=== PATIENT | male | born 1930 | race Caucasian/White ===

== ENCOUNTER 2016-05-11 11:22 | Inpatient (IN) ==
[2016-05-11 12:12] LABS: Mean Corpuscular Volume 98.6 fL (83.0-100.0); Red Cell Distribution Width 14.8 % (11.5-14.5)
[2016-05-11 12:14] LABS: Basophils % 0.3 %; Eosinophils % 0.4 %; Hematocrit 28.5 % (37.5-50.1); Hemoglobin 9.2 g/dL (12.9-16.9); Immature Platelets 10.8 % (1.1-6.1); Lymphocytes # 0.2 K/mcL (0.6-4.6); Lymphocytes % 1.9 %; Mean Corpuscular HGB Conc 32.3 g/dL (31.6-35.5); Mean Corpuscular Hemoglobin 31.8 pg (28.0-33.3); Mean Platelet Volume 13.1 fL (9.4-12.4); Monocytes # 0.9 K/mcL (0.0-1.3); Monocytes % 8.3 %; Neutrophils # 9.1 K/mcL (1.6-8.9); Red Blood Count 2.89 M/mcL (4.19-5.50); Segmented Neutrophils % 88.1 %
[2016-05-11 12:19] LABS: INR 1.4; Prothrombin Time 14.7 Seconds (9.4-12.1)
[2016-05-11 12:27] LABS: Albumin/Globulin Ratio 0.9 (1.1-2.2); Bilirubin,Total 0.6 mg/dL (0.2-1.2); Calcium 9.1 mg/dL (8.6-10.8); Globulin 3.2 g/dL (2.4-3.5); Potassium 4.7 mEq/L (3.5-4.5); Total Protein 6.2 g/dL (6.0-8.3)
[2016-05-11 12:32] LABS: Platelet Count 97 K/mcL (140-400)
[2016-05-11 12:35] LABS: Anisocytosis 1+ (Not Present); Platelet Estimate Slight Decrease (Normal); Poikilocytosis 2+ (Not Present)
[2016-05-11 12:36] LABS: Acanthocytes 1+ (Not Present)
[2016-05-11] MEDS ORDERED: 0.9 % Sodium Chloride 500 ML IV ONE ×2 (13:11→16:30)
[2016-05-11] MEDS ORDERED: Levofloxacin 750 MG/150 ML 750 MG/150 ML BAG IVPB ONE (13:11)
[2016-05-11] MEDS ORDERED: *HR* Heparin 5,000 UNIT/ML VIAL IVP PRN ×2 (13:13)
[2016-05-11] MEDS ORDERED: *HR* Heparin 5,000 UNIT/ML VIAL IVP ONE (13:13)
[2016-05-11] MEDS ORDERED: Heparin 25,000 UNIT/500 ML D5W 25,000 UNIT/500 ML MLS IVC SCH ×2 (13:15→19:00)
--- NOTE | 2016-05-11 13:22 | Emergency Department Note ---
Disposition Clinical Impression: NSTEMI (non-ST elevated myocardial infarction) Pneumonia Qualifiers: Pneumonia type: due to unspecified organism Laterality: unspecified laterality Lung location: unspecified part of lung Qualified Code(s): J18.9 - Pneumonia, unspecified organism Heart failure Qualifiers: Heart failure type: unspecified heart failure type Heart failure chronicity: unspecified heart failure chronicity Qualified Code(s): I50.9 - Heart failure, unspecified Atrial fibrillation Qualifiers: Atrial fibrillation type: paroxysmal Qualified Code(s): I48.0 - Paroxysmal atrial fibrillation Disposition: Admitted As Inpatient Condition: Fair Syncope HPI - General Chief Complaint: ED Syncope Stated Complaint: decreased awareness Time Seen by Provider: 05/11/16 11:33 Source: EMS Limitations: no limitations Nursing Notes Reviewed: Yes Vital Signs Reviewed: Yes - History of Present Illness HPI Narrative: Patient brought in by EMS for evaluation of decreased responsiveness and syncope. Patient lives in assisted living facility when he was knocking on someone's door and they saw him slide down the door fall to the ground. Patient was unconscious for several minutes prior to EMS arrival. Patient did arouse and was responsive upon arrival in the ED. Awake alert and oriented 3 with GCS of 15. Patient does not know what happened to him prior to the event. He remembers eating breakfast in the dining [place] but not walking down the hallway. Patient states that he has had a cough for approximately 4 days associated with significant fatigue over the last 2 days. Patient states that he has an AICD placed for abnormal heart rhythm causing syncope. Patient has no previous history of coronary artery disease. Patient is very dry on initial exam her lungs with significant rails bibasilarly. Clinical cough is deep and concerning for pneumonia. - Related Data Home Medications Medication Instructions Recorded Confirmed Aspirin [Adult Low Dose Aspirin EC] 1 tab PO DAILY 02/25/15 05/11/16 Cholecalciferol (Vitamin D3) 2,000 unit PO DAILY 02/25/15 05/11/16 [Vitamin D] Docosahexanoic Acid/Epa [Fish Oil 1,000 mg PO DAILY 02/25/15 05/11/16 Concentrate Softgel] Finasteride [Proscar] 5 mg PO DAILY 02/25/15 05/11/16 Flaxseed/Omega3,6,9/Fatty Acid 1,000 mg PO DAILY 02/25/15 05/11/16 [Flax Seed Oil 1,300 mg Softgel] Garlic 25 mg PO BID 02/25/15 05/11/16 Ginkgo Biloba [place] Extract [Ginkgo 60 mg PO BID 02/25/15 05/11/16 Biloba] Multivitamin [Multivitamins] 1 each PO DAILY 02/25/15 05/11/16 Simvastatin [Zocor] 20 mg PO HS 02/25/15 05/11/16 Apixaban [Eliquis] 2.5 mg PO BID 01/15/16 05/11/16 Mupirocin [Mupirocin] 1 appl TP BID 05/11/16 05/11/16 Previous Rx's Medication Instructions Recorded Loratadine [Claritin] 10 mg PO BID #30 tablet 05/08/16 Allergies Allergy/AdvReac Type Severity Reaction Status Date / Time No Known Allergies Allergy Verified 01/15/16 11:53 Constitutional: Reports: chills, weakness Eyes: Denies: eye pain ENT ED: Denies: ear pain Cardiovascular: Reports: dyspnea on exertion, orthopnea, syncope. Denies: chest pain Respiratory: Reports: cough, dyspnea, sputum production (White and mendoza) Gastrointestinal: Denies: abdominal pain, nausea, vomiting Genitourinary: Denies: urgency, dysuria Musculoskeletal: Denies: back pain, neck pain Integumentary: Denies: rash, abrasion Neurological: Reports: weakness. Denies: headache Past Medical History - Past Medical History Medical history: Reports: non-contributory, hyperlipidemia, myocardial infarction, sudden cardiac Psychiatric history: Reports: no psych history - Social History Smoking Status: Never smoker Smokeless Tobacco Status: No Alcohol use: Reports: none Drug use: Reports: none Physical Exam - General Limitations: no limitations General appearance: alert, in no apparent distress - Head Head exam: atraumatic, normocephalic - Eye Eye exam: Present: normal appearance - ENT ENT exam: normal exam, mucous membranes dry (Moderate to severe) - Neck Neck exam: Present: normal inspection - Chest Chest inspection: Present: normal inspection, symmetric chest wall rise. Absent : tenderness - Respiratory Respiratory exam: Present: other (Rales associated with hypoxia.) - Cardiovascular Cardiovascular exam: Present: regular rate, normal rhythm - Abdominal Exam Abdominal exam: Present: soft, Non-Tender - Extremities Exam Extremities exam: Present: normal inspection. Absent: tenderness - Back Exam Back exam: Present: normal inspection. Absent: tenderness - Neurological Exam Neurological exam: Present: alert, oriented X3, CN II-XII intact. Absent: motor sensory deficit Course - Reevaluation(s) Reevaluation #1: Patient with chest x-ray concerning for pulmonary edema as well as possible pneumonia. Due to mucous membrane brains being dry and significant cough. Patient given a dose of IV antibiotics. Patient also has elevated BNP and an elevated troponin. Patient denies past myocardial infarction. Patient started on Levaquin and heparin drip. Aspirin given. Patient currently denying chest pain. Patient will be admitted to the hospital. Reevaluation #2: Patient converted to A. fib after hospitalist and cardiology saw the patient. EKG was done showing significant T-wave inversions and depressions throughout all leads. EKG was watched cardiology and discussed with Dr Crockett, concerning EKG but complicated by renal function and pressures as well as no chest pain, only fatigue. Dr. Land interventional cardiology will be paged. - Consultations Consultation #1: Discussed with hospitalist. Request consultation with cardiology. Consultation #2: Discussed with Dr. Crockett. Discontinue Eliquis and start Heparin with pharmacy to help determine timing of Heparin Drip. Call back with heparin to be started timing of next dose of THIS. Next dose due at 7 PM as his nightly dose. Vital Signs Temperature 97.7 F 05/11/16 11:28 Pulse Rate 86 05/11/16 11:28 Respiratory Rate 18 05/11/16 11:28 Blood Pressure 103/55 05/11/16 11:28 O2 Sat by Pulse Oximetry 90 L 05/11/16 11:28 Temperature 97.7 F 05/11/16 11:28 Pulse Rate 71 05/11/16 15:54 Respiratory Rate 26 05/11/16 15:54 Blood Pressure 87/43 05/11/16 15:54 O2 Sat by Pulse Oximetry 98 05/11/16 15:54 Oxygen Delivery Oxygen Delivery Nasal Cannula Syncope - Medical Records Medical records reviewed: Yes I reviewed the patient's medical records. - Lab Data Lab results reviewed: Yes I reviewed the patient's lab results. Result diagrams: 05/11/16 12:00 05/11/16 12:00 Lab Results 05/11/16 05/11/16 05/11/16 Range/Units 12:00 12:00 12:00 WBC 10.3 (4.3-11.1) K/mcL RBC 2.89 L (4.19-5.50) M/mcL Hgb 9.2 L (12.9-16.9) g/dL Hct 28.5 L (37.5-50.1) % MCV 98.6 (83.0-100.0) fL MCH 31.8 (28.0-33.3) pg MCHC 32.3 (31.6-35.5) g/dL RDW 14.8 H (11.5-14.5) % Plt Count 97 L (140-400) K/mcL MPV 13.1 H (9.4-12.4) fL Immature Gran % 1.0 (0-4) % Seg Neutrophils % 88.1 % Lymphocytes % 1.9 % Monocytes % 8.3 % Eosinophils % 0.4 % Basophils % 0.3 % Neutrophils # 9.1 H (1.6-8.9) K/mcL Lymphocytes # 0.2 L (0.6-4.6) K/mcL Monocytes # 0.9 (0.0-1.3) K/mcL Eosinophils # 0.0 (0.0-0.6) K/mcL Basophils # 0.0 (0.0-0.2) K/mcL Platelet Estimate Slight Decrease L (Normal) Immature Plt Fraction 10.8 H (1.1-6.1) % Poikilocytosis 2+ A (Not Present) Anisocytosis 1+ A (Not Present) Acanthocytes (Spur) 1+ A (Not Present) PT 14.7 H (9.4-12.1) Seconds INR 1.4 APTT 28.0 (26.0-36.0) Seconds Sodium (136-145) mEq/L Potassium (3.5-4.5) mEq/L Chloride (98-109) mEq/L Carbon Dioxide (19-29) mEq/L BUN (8-26) mg/dL Creatinine (0.72-1.25) mg/dL Est GFR ( Amer) (> 60) Est GFR (Non-Af Amer) (> 60) BUN/Creatinine Ratio (6-26) Glucose (70-99) mg/dL Calculated Osmolality (280-300) Lactic Acid (0.5-2.2) mmol/L Calcium (8.6-10.8) mg/dL Total Bilirubin (0.2-1.2) mg/dL AST (5-34) Units/L ALT (0-55) Units/L Alkaline Phosphatase (38-126) Units/L Creatine Kinase (30-200) Units/L Troponin I 2.40 H* (0-0.03) ng/mL B-Natriuretic Peptide (0-100) pg/mL Serum Total Protein (6.0-8.3) g/dL Albumin (3.5-5.0) g/dL Globulin (2.4-3.5) g/dL Albumin/Globulin Ratio (1.1-2.2) TSH (0.350-4.840) mcIU/mL 05/11/16 05/11/16 05/11/16 Range/Units 12:00 12:00 12:00 WBC (4.3-11.1) K/mcL RBC (4.19-5.50) M/mcL Hgb (12.9-16.9) g/dL Hct (37.5-50.1) % MCV (83.0-100.0) fL MCH (28.0-33.3) pg MCHC (31.6-35.5) g/dL RDW (11.5-14.5) % Plt Count (140-400) K/mcL MPV (9.4-12.4) fL Immature Gran % (0-4) % Seg Neutrophils % % Lymphocytes % % Monocytes % % Eosinophils % % Basophils % % Neutrophils # (1.6-8.9) K/mcL Lymphocytes # (0.6-4.6) K/mcL Monocytes # (0.0-1.3) K/mcL Eosinophils # (0.0-0.6) K/mcL Basophils # (0.0-0.2) K/mcL Platelet Estimate (Normal) Immature Plt Fraction (1.1-6.1) % Poikilocytosis (Not Present) Anisocytosis (Not Present) Acanthocytes (Spur) (Not Present) PT (9.4-12.1) Seconds INR APTT (26.0-36.0) Seconds Sodium 141 (136-145) mEq/L Potassium 4.7 H (3.5-4.5) mEq/L Chloride 112 H (98-109) mEq/L Carbon Dioxide 21 (19-29) mEq/L BUN 65 H (8-26) mg/dL Creatinine 2.63 H (0.72-1.25) mg/dL Est GFR ( Amer) 28 L (> 60) Est GFR (Non-Af Amer) 23 L (> 60) BUN/Creatinine Ratio 25 (6-26) Glucose 137 H (70-99) mg/dL Calculated Osmolality 313 H (280-300) Lactic Acid 1.7 (0.5-2.2) mmol/L Calcium 9.1 (8.6-10.8) mg/dL Total Bilirubin 0.6 (0.2-1.2) mg/dL AST 42 H (5-34) Units/L ALT 20 (0-55) Units/L Alkaline Phosphatase 73 (38-126) Units/L Creatine Kinase (30-200) Units/L Troponin I (0-0.03) ng/mL B-Natriuretic Peptide 1960 H (0-100) pg/mL Serum Total Protein 6.2 (6.0-8.3) g/dL Albumin 3.0 L (3.5-5.0) g/dL Globulin 3.2 (2.4-3.5) g/dL Albumin/Globulin Ratio 0.9 L (1.1-2.2) TSH 2.709 (0.350-4.840) mcIU/mL 05/11/16 Range/Units 12:00 WBC (4.3-11.1) K/mcL RBC (4.19-5.50) M/mcL Hgb (12.9-16.9) g/dL Hct (37.5-50.1) % MCV (83.0-100.0) fL MCH (28.0-33.3) pg MCHC (31.6-35.5) g/dL RDW (11.5-14.5) % Plt Count (140-400) K/mcL MPV (9.4-12.4) fL Immature Gran % (0-4) % Seg Neutrophils % % Lymphocytes % % Monocytes % % Eosinophils % % Basophils % % Neutrophils # (1.6-8.9) K/mcL Lymphocytes # (0.6-4.6) K/mcL Monocytes # (0.0-1.3) K/mcL Eosinophils # (0.0-0.6) K/mcL Basophils # (0.0-0.2) K/mcL Platelet Estimate (Normal) Immature Plt Fraction (1.1-6.1) % Poikilocytosis (Not Present) Anisocytosis (Not Present) Acanthocytes (Spur) (Not Present) PT (9.4-12.1) Seconds INR APTT (26.0-36.0) Seconds Sodium (136-145) mEq/L Potassium (3.5-4.5) mEq/L Chloride (98-109) mEq/L Carbon Dioxide (19-29) mEq/L BUN (8-26) mg/dL Creatinine (0.72-1.25) mg/dL Est GFR ( Amer) (> 60) Est GFR (Non-Af Amer) (> 60) BUN/Creatinine Ratio (6-26) Glucose (70-99) mg/dL Calculated Osmolality (280-300) Lactic Acid (0.5-2.2) mmol/L Calcium (8.6-10.8) mg/dL Total Bilirubin (0.2-1.2) mg/dL AST (5-34) Units/L ALT (0-55) Units/L Alkaline Phosphatase (38-126) Units/L Creatine Kinase 107 (30-200) Units/L Troponin I (0-0.03) ng/mL B-Natriuretic Peptide (0-100) pg/mL Serum Total Protein (6.0-8.3) g/dL Albumin (3.5-5.0) g/dL Globulin (2.4-3.5) g/dL Albumin/Globulin Ratio (1.1-2.2) TSH (0.350-4.840) mcIU/mL - Radiology Data Radiology results reviewed: Yes I reviewed the patient's radiology results. - EKG Data EKG attestation: Yes I reviewed and interpreted this EKG. EKG results narrative: Patient's EKG is ventricularly paced rhythm at a rate of 82 bpm. QRS 155. QTC 444. No previous EKG. Repeat EKG after seeing the patient and concern for ST elevation on the monitor. EKG shows atrial fibrillation with ventricular rate of 64 bpm. QRS 155. QTC 468. Patient with diffuse T-wave inversions and right bundle branch block. No previous EKG beyond ventricularly paced rhythm artery documented. Patient is on Eliquis that is likely for this A. fib.
--- NOTE | 2016-05-11 13:27 | Emergency Department Note ---
Disposition Clinical Impression: NSTEMI (non-ST elevated myocardial infarction), Pneumonia, Heart failure, Atrial fibrillation Disposition: Admitted As Inpatient Condition: Fair General Adult HPI - General Chief complaint: ED Syncope Stated complaint: decreased awareness Time Seen by Provider: 05/11/16 11:33 Source: EMS Limitations: no limitations - History of Present Illness Pain Scale: 0 - Related Data Home Medications Medication Instructions Recorded Confirmed Aspirin [Adult Low Dose Aspirin EC] 1 tab PO DAILY 02/25/15 05/11/16 Cholecalciferol (Vitamin D3) 2,000 unit PO DAILY 02/25/15 05/11/16 [Vitamin D] Docosahexanoic Acid/Epa [Fish Oil 1,000 mg PO DAILY 02/25/15 05/11/16 Concentrate Softgel] Finasteride [Proscar] 5 mg PO DAILY 02/25/15 05/11/16 Flaxseed/Omega3,6,9/Fatty Acid 1,000 mg PO DAILY 02/25/15 05/11/16 [Flax Seed Oil 1,300 mg Softgel] Garlic 25 mg PO BID 02/25/15 05/11/16 Ginkgo Biloba [place] Extract [Ginkgo 60 mg PO BID 02/25/15 05/11/16 Biloba] Multivitamin [Multivitamins] 1 each PO DAILY 02/25/15 05/11/16 Simvastatin [Zocor] 20 mg PO HS 02/25/15 05/11/16 Apixaban [Eliquis] 2.5 mg PO BID 01/15/16 05/11/16 Mupirocin [Mupirocin] 1 appl TP BID 05/11/16 05/11/16 Previous Rx's Medication Instructions Recorded Loratadine [Claritin] 10 mg PO BID #30 tablet 05/08/16 Allergies Allergy/AdvReac Type Severity Reaction Status Date / Time No Known Allergies Allergy Verified 01/15/16 11:53 Past Medical History - Past Medical History Medical history: Reports: non-contributory, hyperlipidemia, myocardial infarction, sudden cardiac Psychiatric history: Reports: no psych history - Social History Smoking Status: Never smoker Smokeless Tobacco Status: No Alcohol use: Reports: none Drug use: Reports: none Physical Exam - General Limitations: no limitations General appearance: alert, in no apparent distress Course - Reevaluation(s) Reevaluation #1: I saw the patient with the resident, Dr. Robb. Patient presents with what sounds like a syncopal episode at his assisted living facility. There was some question as whether this could have been a seizure. In the end is unwitnessed so it can be 100% clear but by the way the patient talks in the story given to us by EMS it sounds highly likely that this was really a syncope episode. Workup shows a number of issues including acute kidney injury as well as elevated troponin. This patient is admitted to the hospital for management of her underlying condition. Time: 13:26 Vital Signs Temperature 97.7 F 05/11/16 11:28 Pulse Rate 86 05/11/16 11:28 Respiratory Rate 18 05/11/16 11:28 Blood Pressure 103/55 05/11/16 11:28 O2 Sat by Pulse Oximetry 90 L 05/11/16 11:28 Temperature 97.5 F L 05/14/16 03:24 Pulse Rate 69 05/14/16 03:30 Respiratory Rate 16 05/14/16 03:24 Blood Pressure 117/60 05/14/16 03:24 O2 Sat by Pulse Oximetry 94 L 05/14/16 03:24 Oxygen Delivery Oxygen Delivery Nasal Cannula Medical Decision Making - Lab Data Result diagrams: 05/14/16 04:58 05/14/16 04:58 Lab Results 05/11/16 05/11/16 05/11/16 Range/Units 12:00 12:00 12:00 WBC 10.3 (4.3-11.1) K/mcL RBC 2.89 L (4.19-5.50) M/mcL Hgb 9.2 L (12.9-16.9) g/dL Hct 28.5 L (37.5-50.1) % MCV 98.6 (83.0-100.0) fL MCH 31.8 (28.0-33.3) pg MCHC 32.3 (31.6-35.5) g/dL RDW 14.8 H (11.5-14.5) % Plt Count 97 L (140-400) K/mcL MPV 13.1 H (9.4-12.4) fL Immature Gran % 1.0 (0-4) % Seg Neutrophils % 88.1 % Lymphocytes % 1.9 % Monocytes % 8.3 % Eosinophils % 0.4 % Basophils % 0.3 % Neutrophils # 9.1 H (1.6-8.9) K/mcL Lymphocytes # 0.2 L (0.6-4.6) K/mcL Monocytes # 0.9 (0.0-1.3) K/mcL Eosinophils # 0.0 (0.0-0.6) K/mcL Basophils # 0.0 (0.0-0.2) K/mcL Platelet Estimate Slight Decrease L (Normal) Immature Plt Fraction 10.8 H (1.1-6.1) % Poikilocytosis 2+ A (Not Present) Anisocytosis 1+ A (Not Present) Acanthocytes (Spur) 1+ A (Not Present) PT 14.7 H (9.4-12.1) Seconds INR 1.4 APTT 28.0 (26.0-36.0) Seconds Sodium (136-145) mEq/L Potassium (3.5-4.5) mEq/L Chloride (98-109) mEq/L Carbon Dioxide (19-29) mEq/L BUN (8-26) mg/dL Creatinine (0.72-1.25) mg/dL Est GFR ( Amer) (> 60) Est GFR (Non-Af Amer) (> 60) BUN/Creatinine Ratio (6-26) Glucose (70-99) mg/dL Calculated Osmolality (280-300) Lactic Acid (0.5-2.2) mmol/L Calcium (8.6-10.8) mg/dL Total Bilirubin (0.2-1.2) mg/dL AST (5-34) Units/L ALT (0-55) Units/L Alkaline Phosphatase (38-126) Units/L Creatine Kinase (30-200) Units/L Troponin I 2.40 H* (0-0.03) ng/mL B-Natriuretic Peptide (0-100) pg/mL Serum Total Protein (6.0-8.3) g/dL Albumin (3.5-5.0) g/dL Globulin (2.4-3.5) g/dL Albumin/Globulin Ratio (1.1-2.2) TSH (0.350-4.840) mcIU/mL 05/11/16 05/11/16 05/11/16 Range/Units 12:00 12:00 12:00 WBC (4.3-11.1) K/mcL RBC (4.19-5.50) M/mcL Hgb (12.9-16.9) g/dL Hct (37.5-50.1) % MCV (83.0-100.0) fL MCH (28.0-33.3) pg MCHC (31.6-35.5) g/dL RDW (11.5-14.5) % Plt Count (140-400) K/mcL MPV (9.4-12.4) fL Immature Gran % (0-4) % Seg Neutrophils % % Lymphocytes % % Monocytes % % Eosinophils % % Basophils % % Neutrophils # (1.6-8.9) K/mcL Lymphocytes # (0.6-4.6) K/mcL Monocytes # (0.0-1.3) K/mcL Eosinophils # (0.0-0.6) K/mcL Basophils # (0.0-0.2) K/mcL Platelet Estimate (Normal) Immature Plt Fraction (1.1-6.1) % Poikilocytosis (Not Present) Anisocytosis (Not Present) Acanthocytes (Spur) (Not Present) PT (9.4-12.1) Seconds INR APTT (26.0-36.0) Seconds Sodium 141 (136-145) mEq/L Potassium 4.7 H (3.5-4.5) mEq/L Chloride 112 H (98-109) mEq/L Carbon Dioxide 21 (19-29) mEq/L BUN 65 H (8-26) mg/dL Creatinine 2.63 H (0.72-1.25) mg/dL Est GFR ( Amer) 28 L (> 60) Est GFR (Non-Af Amer) 23 L (> 60) BUN/Creatinine Ratio 25 (6-26) Glucose 137 H (70-99) mg/dL Calculated Osmolality 313 H (280-300) Lactic Acid 1.7 (0.5-2.2) mmol/L Calcium 9.1 (8.6-10.8) mg/dL Total Bilirubin 0.6 (0.2-1.2) mg/dL AST 42 H (5-34) Units/L ALT 20 (0-55) Units/L Alkaline Phosphatase 73 (38-126) Units/L Creatine Kinase (30-200) Units/L Troponin I (0-0.03) ng/mL B-Natriuretic Peptide 1960 H (0-100) pg/mL Serum Total Protein 6.2 (6.0-8.3) g/dL Albumin 3.0 L (3.5-5.0) g/dL Globulin 3.2 (2.4-3.5) g/dL Albumin/Globulin Ratio 0.9 L (1.1-2.2) TSH 2.709 (0.350-4.840) mcIU/mL 05/11/16 Range/Units 12:00 WBC (4.3-11.1) K/mcL RBC (4.19-5.50) M/mcL Hgb (12.9-16.9) g/dL Hct (37.5-50.1) % MCV (83.0-100.0) fL MCH (28.0-33.3) pg MCHC (31.6-35.5) g/dL RDW (11.5-14.5) % Plt Count (140-400) K/mcL MPV (9.4-12.4) fL Immature Gran % (0-4) % Seg Neutrophils % % Lymphocytes % % Monocytes % % Eosinophils % % Basophils % % Neutrophils # (1.6-8.9) K/mcL Lymphocytes # (0.6-4.6) K/mcL Monocytes # (0.0-1.3) K/mcL Eosinophils # (0.0-0.6) K/mcL Basophils # (0.0-0.2) K/mcL Platelet Estimate (Normal) Immature Plt Fraction (1.1-6.1) % Poikilocytosis (Not Present) Anisocytosis (Not Present) Acanthocytes (Spur) (Not Present) PT (9.4-12.1) Seconds INR APTT (26.0-36.0) Seconds Sodium (136-145) mEq/L Potassium (3.5-4.5) mEq/L Chloride (98-109) mEq/L Carbon Dioxide (19-29) mEq/L BUN (8-26) mg/dL Creatinine (0.72-1.25) mg/dL Est GFR ( Amer) (> 60) Est GFR (Non-Af Amer) (> 60) BUN/Creatinine Ratio (6-26) Glucose (70-99) mg/dL Calculated Osmolality (280-300) Lactic Acid (0.5-2.2) mmol/L Calcium (8.6-10.8) mg/dL Total Bilirubin (0.2-1.2) mg/dL AST (5-34) Units/L ALT (0-55) Units/L Alkaline Phosphatase (38-126) Units/L Creatine Kinase 107 (30-200) Units/L Troponin I (0-0.03) ng/mL B-Natriuretic Peptide (0-100) pg/mL Serum Total Protein (6.0-8.3) g/dL Albumin (3.5-5.0) g/dL Globulin (2.4-3.5) g/dL Albumin/Globulin Ratio (1.1-2.2) TSH (0.350-4.840) mcIU/mL Attestation Statement - Attestation Attestation: I, Dr. Cottrell, examined this patient [id number] and my medical decision- making was reviewed with Dr. Robb, Resident Physician. I agree with the documented findings, disposition and treatment plan as described except to the extent set forth below. Please see my progress notes for details.
[2016-05-11] MEDS ORDERED: Piperacillin/Tazobactam 3.375 GM in D5% in Water (Mini-Bag+) 100 ML IVPB ONE (13:41)
[2016-05-11 14:22] LABS: Thyroid Stimulating Hormone 2.709 mcIU/mL (0.350-4.840)
[2016-05-11] MEDS ORDERED: Naloxone 0.4 MG/ML INJ IVP PRN (15:28)
[2016-05-11] MEDS ORDERED: *HR* HYDROcodone/Acet 5/325 mg TABLET PO PRN (15:28)
[2016-05-11] MEDS ORDERED: Ondansetron 4 MG/2 ML VIAL IVP PRN (15:28)
--- NOTE | 2016-05-11 15:50 | Cardiology Consult Note ---
<Zachary Castelan - Last Filed: 05/11/16 16:29> Date of Encounter: 05/11/16 Time of Encounter: 13:44 Assessment and Plan (1) NSTEMI (non-ST elevated myocardial infarction) Current Visit: Yes Status: Acute Troponin elevated at 2.4 in the setting of pneumonia and acute kidney injury. Initial EKG showed ventricular pacing. He did convert to rate controlled atrial flutter and EKG was repeated. EKG shows significant diffuse ST/T wave changes. Findings discussed with the ER physician, EKG will be reviewed with interventionalist. He denies any chest pain, continues to c/o fatigue. Heparin drip for 48 hours. Check TTE. Aspirin, statin, and beta samaria. I discussed left heart catheterization with patient and family. His initial lab work reveals elevated creatinine at 2.63, BUN 65, GFR 23. He is also mildly anemic with a hemoglobin of 9.2. We do not have his baseline labs. We will attempt to order records from [facility] where he was seen most recently. (3) Syncope Current Visit: Yes Status: Acute We will check his PPM to rule out arrhythmia. Check TTE. (4) Atrial fibrillation Current Visit: Yes Status: Acute Patient reports history of irregular heart rhythm. Currently ventricular paced with underlying sinus beats.He follows with balloon artist in [place]. Eliquist recommended to be held and heparin drip will be started for [place] protocol. (5) Pneumonia Current Visit: Yes Status: Acute Chest x-ray shows probable pneumonia. Patient reported cough for 4 days. He was started on IV antibiotics in the ER. Hospitalists are following. Discussion w patient/family: The assessment and plan as outlined above was discussed with the patient and/or family members who expressed understanding and agreement. All questions were answered. Thank you for involving us in the care of your patient. Please call with any questions. History of Present Illness Consult date: 05/11/15 Consult reason: NSTEMI Chief complaint: Syncope History of present illness: Mr. Villarreal is a 85 year old male with a history of PPM, paroxysmal atrial fibrillation on eliquis, and hyperlipidemia who presents after having a syncopal episode at home. He lives in an assisted living apartment. He was walking back to his room from the dining room when he felt very exhausted and very short of breath. He does not remember what happened after that. He reportedly knocked on someone's door and fell on the floor. He did scrape his head during his fall. He had a decrease of consciousness for several minutes. EMS was called where he was found to be laying on his side with decreased consciousness. He finally returned to normal during his transport to the hospital. His initial evaluation revealed a heart rate of 79, blood pressure 102/60, blood glucose was 136, he is mildly anemic with a hemoglobin 9.2, platelets 97. He is also found to have probable acute kidney injury with a creatinine at 2.63 , BUN 65, GFR 23. We do not have any records to compare. His troponins also found to be elevated at 2.4 and BNP at 1960. A chest x-ray showed bibasilar lung infiltrates right greater than left, small lateral pleural effusions concerning for pneumonia. He does complain of cough over the past few days productive of clear and green sputum. He denies any chest pain or palpitations. He denies orthopnea, PND, or edema. Past Med Surg Social Fam HX - Past Medical History Medical history: non-contributory, atrial fibrillation, hyperlipidemia, other ( Permanent pacemaker, sinus node dysfunction) Psychiatric history: no psych history - Social History Smoking Status: Never smoker Smokeless Tobacco Status: No Alcohol use: none Drug use: none Medications and Allergies Aspirin [Adult Low Dose Aspirin EC] 1 tab PO DAILY 02/25/15 [History] Cholecalciferol (Vitamin D3) [Vitamin D] 2,000 unit PO DAILY 02/25/15 [History] Docosahexanoic Acid/Epa [Fish Oil Concentrate Softgel] 1,000 mg PO DAILY [History] Finasteride [Proscar] 5 mg PO DAILY 02/25/15 [History] Flaxseed/Omega3,6,9/Fatty Acid [Flax Seed Oil 1,300 mg Softgel] 1,000 mg PO DAILY 02/25/15 [History] Garlic 25 mg PO BID 02/25/15 [History] Ginkgo Biloba [place] Extract [Ginkgo Biloba] 60 mg PO BID 02/25/15 [History] Multivitamin [Multivitamins] 1 each PO DAILY 02/25/15 [History] Simvastatin [Zocor] 20 mg PO HS 02/25/15 [History] Apixaban [Eliquis] 2.5 mg PO BID 01/15/16 [History] Loratadine [Claritin] 10 mg PO BID #30 tablet 05/08/16 [Rx] Mupirocin [Mupirocin] 1 appl TP BID 05/11/16 [History] Allergies No Known Allergies Allergy (Verified 01/15/16 11:53) All Systems Review: A 10-system review of systems was performed and is negative for pertinent findings except as documented above in the HPI. Physical Examination Vital Signs, Last 4 Hours Pulse Resp BP Pulse Ox 05/11/16 14:32 76 22 96/46 93 L 05/11/16 13:49 72 20 115/55 94 L 05/11/16 12:55 75 18 107/65 97 05/11/16 12:15 75 103/50 General: Conversant, No Apparent Distress, Other (Frail elderly male) HEENT: Atraumatic, Normocephaly, Mucus Membranes Moist Neck: No JVD, Normal carotid pulses Cardiac: Reg Rate and Rhythm, Normal S1 and S2, No Murmur Lungs: Other (Respirations are easy, loud rhonchi scattered throughout, rales bilateral posterior bases.) Neuro: Alert and responsive, No focal deficits noted Abdomen: Soft, Non-Tender Skin: No rashes noted on visualized skin Musculoskeletal: No Chest Wall Tenderness Extremities: No Clubbing, No Cyanosis, No Edema, Normal Pulses Results 05/11/16 12:00 05/11/16 12:00 Lab Results 05/11/16 05/11/16 05/11/16 12:00 12:00 12:00 WBC 10.3 Hgb 9.2 L Hct 28.5 L Plt Count 97 L INR 1.4 APTT 28.0 Sodium Potassium Chloride Carbon Dioxide BUN Creatinine Glucose Calcium Total Bilirubin AST ALT Alkaline Phosphatase Troponin I 2.40 H* B-Natriuretic Peptide TSH 05/11/16 05/11/16 12:00 12:00 WBC Hgb Hct Plt Count INR APTT Sodium 141 Potassium 4.7 H Chloride 112 H Carbon Dioxide 21 BUN 65 H Creatinine 2.63 H Glucose 137 H Calcium 9.1 Total Bilirubin 0.6 AST 42 H ALT 20 Alkaline Phosphatase 73 Troponin I B-Natriuretic Peptide 1960 H TSH 2.709 - EKG Interpretation EKG results cardiology: personally reviewed (Ventricular pacing with underlying sinus rhythm) Consult Discharge Plan - Plan Referrals: Zeyad Costa MD [Primary Care Provider] - 05/20/16 9:00 am NO,PCP [Non-Partnered Physician] - Misael Moore DO [Partnered Physician] - (SENT WEB REQUEST ON 05-12-16 @ [id number]) <Nathaly Crockett - Last Filed: 05/12/16 15:20> Date of Encounter: 05/12/16 Assessment and Plan Discussion w patient/family: The assessment and plan as outlined above was discussed with the patient and/or family members who expressed understanding and agreement. All questions were answered. Thank you for involving us in the care of your patient. Please call with any questions. History of Present Illness History of present illness: Mr. Villarreal is a 85 year old male All Systems Review: A 10-system review of systems was performed and is negative for pertinent findings except as documented above in the HPI. Physical Examination Vital Signs, Last 4 Hours Temp Pulse Resp BP Pulse Ox 05/12/16 14:59 98.2 F 63 18 99/51 94 L 05/12/16 14:51 71 05/12/16 14:44 97.7 F 71 18 105/61 05/12/16 11:37 97.4 F L 63 18 119/58 94 L Results 05/12/16 01:00 05/12/16 01:00 Lab Results 05/11/16 05/12/16 05/12/16 17:44 01:00 01:00 WBC 7.8 Hgb 7.9 L Hct 24.4 L Plt Count 80 L APTT Sodium Potassium Chloride Carbon Dioxide BUN Creatinine Glucose Calcium Troponin I 2.61 H* 1.93 H* 05/12/16 05/12/16 05/12/16 01:00 01:00 06:37 WBC Hgb Hct Plt Count APTT 67.6 H D 58.3 H Sodium 140 Potassium 5.0 H Chloride 115 H Carbon Dioxide 19 BUN 60 H Creatinine 2.28 H Glucose 108 H Calcium 8.5 L Troponin I - Attending Attestation I examined this patient and my medical decision-making was reviewed with the COMMISSION SALES ASSOCIATE/PA/Advanced Practice Nurse/Resident Physician. I agree with the documented findings, disposition and treatment plan.
[2016-05-11] MEDS: 0.9 % Sodium Chloride 1,000 ML IVC SCH (16:14)
--- NOTE | 2016-05-11 16:23 | Internal Med History&Physical ---
Date of Encounter: 05/11/16 Time of Encounter: 15:00 Assessment and Plan (1) NSTEMI (non-ST elevated myocardial infarction) Current visit: Yes Status: Acute 1 presently chest pain-free troponin 2.4 on presentation-we will continue to cycle cardiac troponins 2 Will obtain cardiac echo 3 continue his cardiac monitoring 4 we will continue statin and aspirin will hold beta samaria at this time due to low blood pressure 5 consult cardiology 6 patient is on our request for atrial fibrillation we will hold all her questions in initiated on heparin drip at 7 PM per cardiology recommendations (2) Thrombocytopenia Current visit: Yes Status: Acute 1 patient's platelet are 97 at this time. No signs and symptoms of active bleeding we will continue to monitor platelets we will transfuse as needed patient is on several herbal medications at home will hold for now (3) Atrial fibrillation Status: Acute 1 patient has a history of paroxysmal atrial fibrillation. Is on eliquis will hold at this time 2 patient is paced rhythm on the monitor rate controlled at 80 3 consulted cardiology interrogate pacemaker Qualifiers: Atrial fibrillation type: paroxysmal Qualified Code(s): I48.0 - Paroxysmal atrial fibrillation (4) Pneumonia Current visit: Yes Status: Acute 1 suspect this is HCAP Since patient resides in an assisted living facility patient presents with a week of shortness of breath productive cough and hypoxia. X-ray did reveal reveal bibasilar infiltrates. Patient was placed on oxygen 2 blood cultures obtained initiated on vanc and Levaquin and Zosyn 3 bronchodilators as needed Qualifiers: Pneumonia type: due to unspecified organism Laterality: unspecified laterality Lung location: unspecified part of lung Qualified Code(s): J18.9 - Pneumonia, unspecified organism (5) Heart failure Current visit: Yes Status: Acute 1 unsure of the will obtain echo. Present BNP is 1960 no edema noted. We will monitor her intake output and daily weights 2 low sodium diet 3 oxygen as needed Qualifiers: Heart failure type: unspecified heart failure type Heart failure chronicity : unspecified heart failure chronicity Qualified Code(s): I50.9 - Heart failure, unspecified (6) Syncope Current visit: Yes Status: Acute 1 she had syncopal episode sure if it is related to cardiac or infectious process. CT of head was negative. Will obtain carotid Dopplers. 2 cardiology consult will interrogate pacemaker 3. Fall Precautions 4 gentle IV fluid hydration dt low systolic blood pressure Qualifiers: Syncope type: unspecified Qualified Code(s): R55 - Syncope and collapse (7) DVT prophylaxis Current visit: Yes Status: Acute 1 heparin (8) ANNIE (acute kidney injury) Current visit: Yes Status: Acute 1 creatinine is 2.65 unsure of baseline. Patient has had decreased in oral intake past week. Also has low systolic blood pressure. We will continue monitor creatinine 2 gentle IV hydration 3 avoid nephrotoxins renal dose all antibiotics no NSAIDs 4 monitor intake and output daily weights Internal Medicine - H&P: HPI Admitted From: Home Plans for Post Hospital Care: Home History of present illness: Mr. Villarreal is a 85 year old male with past medical history of paroxysmal atrial fibrillation he is on eliquis hyperlipidemia pacemaker bladder cancer. The the patient has been experiencing shortness of breath, fatigue and weakness as well as a productive cough for approx 1 week. He resides in assisted living facility and recalls going to the dining room this a.m. and eating breakfast, he became very short of breath and weak he ambulated down the hallway and knocked on someone's door for assistance he does not recall the events afterwards however he fell onto the floor. He did scrape his head as well as his shoulder during the fall. He had decreased level of consciousness for several minutes and EMS was notified. Upon arrival of EMS the patient continued to have decreased level of consciousness as well as hypoxia he was transported to ER for evaluation and upon arrival his mentation had returned to baseline. His initial blood pressure was 102/60 heart rate 79 his glucose was 136 SPO2 was 90% lab work did reveal hemoglobin 9.2 platelets 97 creatinine 2.63 BUN 65 creatinine 23 elevated troponin at 2.4 and BNP is 1960. Chest x- ray revealed bibasilar lung infiltrates right greater than left and small left pleural effusion. EKG revealed paced rhythm CT of head was negative for any intracranial abnormalities C-spine was cleared. Blood cultures were obtained patient was given IV antibiotics as well as a 500 fluid bolus. He has been admitted for further workup and evaluation. Presently patient is not to be in any respiratory distress he denies any chest pain, palpitation or shortness of breath at this time. Upon physical assessment the patient does appear to be dry his tongue is farrowed. His lung sounds have scattered rhonchi, no pedal edema noted he has a moist nonproductive cough. He appears to be in a paced rhythm on the monitor at a rate in the 80s SPO2 is 95% on 3 L nasal cannula. Systolic pressure 87 at this time. The patient does report that approximately one year ago he did experience a syncopal episode while living in [place] he states that his heart had stopped and pacemaker was placed at that time. Prior to this week the patient states that he has been in good health and has been doing well Past Med Surg Social Fam HX - Past Medical History Medical history: non-contributory, atrial fibrillation, hyperlipidemia, other ( Permanent pacemaker, sinus node dysfunction) Psychiatric history: no psych history - Social History Smoking Status: Never smoker Smokeless Tobacco Status: No Alcohol use: none Drug use: none Internal Medicine - H&P: Meds Aspirin [Adult Low Dose Aspirin EC] 1 tab PO DAILY 02/25/15 [History] Cholecalciferol (Vitamin D3) [Vitamin D] 2,000 unit PO DAILY 02/25/15 [History] Docosahexanoic Acid/Epa [Fish Oil Concentrate Softgel] 1,000 mg PO DAILY [History] Finasteride [Proscar] 5 mg PO DAILY 02/25/15 [History] Flaxseed/Omega3,6,9/Fatty Acid [Flax Seed Oil 1,300 mg Softgel] 1,000 mg PO DAILY 02/25/15 [History] Garlic 25 mg PO BID 02/25/15 [History] Ginkgo Biloba [place] Extract [Ginkgo Biloba] 60 mg PO BID 02/25/15 [History] Multivitamin [Multivitamins] 1 each PO DAILY 02/25/15 [History] Simvastatin [Zocor] 20 mg PO HS 02/25/15 [History] Apixaban [Eliquis] 2.5 mg PO BID 01/15/16 [History] Loratadine [Claritin] 10 mg PO BID #30 tablet 05/08/16 [Rx] Mupirocin [Mupirocin] 1 appl TP BID 05/11/16 [History] Allergies No Known Allergies Allergy (Verified 01/15/16 11:53) All Systems PM: A 10-system review of systems was performed and is negative for pertinent findings except as documented above in the HPI. - Constitutional Constitutional: chills, weakness - Cardiovascular Cardiovascular ROS IM: dyspnea on exertion - Respiratory Respiratory: cough, dyspnea on exertion, excessive phlegm production - Gastrointestinal Gastrointestinal: no abdominal pain, no diarrhea, no hematemesis, no hematochezia, no melena, no nausea, no vomiting - Integumentary Integumentary IM: no rash, no unusual bruising - Neurological Neurological ROS: no confusion, no convulsions, no focal weakness, no numbness, no tingling, no tremor(s) - Constitutional Vitals: Temp Pulse Resp BP Pulse Ox 97.7 F 71 26 87/43 98 05/11/16 11:28 05/11/16 15:54 05/11/16 15:54 05/11/16 15:54 05/11/16 15:54 General appearance: Present: A&O X 3, pleasant - Head Head exam: Present: atraumatic, normocephalic - Eye Eye exam: Present: PERRL, conjuntiva pink, sclera anicteric Pupils: Present: PERRL - Respiratory Respiratory exam: Present: rhonchi. Absent: accessory muscle use, rales, wheezes - Cardiovascular Cardiovascular exam: Present: irregular rhythm, +S1, +S2. Absent: diastolic murmur, gallop, rubs, systolic murmur - GI/Abdominal GI/Abdominal exam: Present: normal bowel sounds, soft, no peritoneal signs. Absent: distended, tenderness - Extremities Exam Extremities exam: Present: warm, radial pulses palpable and symetrical. Absent : calf tenderness, cyanotic, pedal edema - Neurological Exam Neurological exam: Present: CN II-XII intact, oriented X3, no focal deficits. Absent: pronater drift, facial droop, speech deficit - Skin Skin exam: Present: dry, intact Internal Med - H&P Results - Labs CBC & Chem 7: 05/11/16 12:00 05/11/16 12:00 Labs: Short CBC 05/11/16 Range/Units 12:00 WBC 10.3 (4.3-11.1) K/mcL Hgb 9.2 L (12.9-16.9) g/dL Hct 28.5 L (37.5-50.1) % Plt Count 97 L (140-400) K/mcL Neutrophils # 9.1 H (1.6-8.9) K/mcL BMP 05/11/16 12:00 Sodium 141 Potassium 4.7 H Chloride 112 H Carbon Dioxide 21 BUN 65 H Creatinine 2.63 H Glucose 137 H Calcium 9.1 Cardiac Enzymes 05/11/16 Range/Units 12:00 Troponin I 2.40 H* (0-0.03) ng/mL Liver Function 05/11/16 Range/Units 12:00 Total Bilirubin 0.6 (0.2-1.2) mg/dL AST 42 H (5-34) Units/L ALT 20 (0-55) Units/L Alkaline Phosphatase 73 (38-126) Units/L Albumin 3.0 L (3.5-5.0) g/dL - EKG Data Prior EKG available for review: no EKG comments: 05/11/16 16:46 paced rhythm - Impressions ITS Impressions Chest X-Ray 05/11/16 11:43 IMPRESSION: Bibasilar lung infiltrates, right side greater than left, with associated small bilateral pleural effusions, concerning for pneumonia. D/ / 05/11/2016 12:19:55 Italo Palma MD / darrell Interpreting Provider: Italo Palma MD Head CT 05/11/16 11:43 IMPRESSION: 1. 1. No acute intracranial abnormality. 2. Cerebral and cerebellar parenchymal volume loss with chronic microvascular white matter ischemic disease. D/ / 05/11/2016 12:27:24 Italo Palma MD / michael Interpreting Provider: Italo Palma MD Cervical Spine CT 05/11/16 11:45 IMPRESSION: No acute abnormality of the cervical spine. Severe degenerative changes. Partial visualization of a left pleural effusion. D/ / 05/11/2016 12:30:49 Yoli Ayers MD / michael Interpreting Provider: Yoli Ayers MD - Diagnostic Studies Chest x-ray Additional comments: Per radiology read bibasilar lung infiltrates right side greater than left with associated small bilateral pleural effusion concerning for pneumonia CT scan - head Additional comments: Per radiology read CT of head without contrast no acute intracranial abnormalities cerebral and cerebellar parenchymal volume loss with chronic microvascular white matter ischemic disease Other Images Additional comments: C-spine no evidence of acute cervical spine fracture
--- NOTE | 2016-05-11 17:32 | Event Note ---
Date of Encounter: 05/11/16 Time of Encounter: 17:30 - Cardiology Event Note Inpatient device check completed. Normal functioning PPM. There are multiple episodes of atrial arrhythmia, atrial fibrillation since 05/10/15. Avg HR for afib is 88 bpm. No atrial fibrillation seen prior to these events, since March 2016. No ventricular arrhythmias.
[2016-05-11 17:38] LABS: Bilirubin,Urine Negative (Negative); Blood,Urine Small (Negative); Color,Urine Yellow (Yellow); Glucose,Urine (UA) Normal (Normal); Ketones,Urine Negative (Negative); Leukocyte Esterase,Urine Negative (Negative); Nitrite,Urine Negative (Negative); Protein,Urine 100 mg/dL (Neg-Trace); Specific Gravity,Urine 1.022 (1.010-1.025); Urobilinogen,Urine Normal (Normal)
[2016-05-11 17:39] LABS: Clarity,Urine Slightly Hazy (Clear)
[2016-05-11] MEDS ORDERED: Vancomycin 1,000 MG in D5% in Water 250 ML IVPB ONE (18:00)
[2016-05-11 18:02] LABS: RBC,Urine 0-3 per hpf (0-3); Squamous Epithelial Cell,Urine Few per lpf (None-Few); Transitional Epi Cells,Urine Few per hpf (None-Few); WBC,Urine 0-3 per hpf (0-3)
[2016-05-11 18:03] LABS: Bacteria,Urine Moderate per hpf (None-Few); Granular Casts,Urine Moderate per lpf (None Seen)
[2016-05-11] MEDS: Acetaminophen 325 MG TABLET PO PRN (21:31)
[2016-05-12 01:18] LABS: Basophils % 0.3 %; Eosinophils # 0.1 K/mcL (0.0-0.6); Eosinophils % 0.9 %; Hematocrit 24.4 % (37.5-50.1); Hemoglobin 7.9 g/dL (12.9-16.9); Immature Granulocytes % 1.2 % (0-4); Lymphocytes # 0.5 K/mcL (0.6-4.6); Lymphocytes % 6.2 %; Mean Corpuscular HGB Conc 32.4 g/dL (31.6-35.5); Mean Corpuscular Hemoglobin 32.1 pg (28.0-33.3); Mean Corpuscular Volume 99.2 fL (83.0-100.0); Mean Platelet Volume 13.2 fL (9.4-12.4); Monocytes # 1.1 K/mcL (0.0-1.3); Red Blood Count 2.46 M/mcL (4.19-5.50); Red Cell Distribution Width 15.1 % (11.5-14.5); Segmented Neutrophils % 77.4 %
[2016-05-12 01:20] LABS: Platelet Count 80 K/mcL (140-400)
[2016-05-12 01:25] LABS: Calcium 8.5 mg/dL (8.6-10.8); Chol/HDL Ratio 3.4 (0-4.9)
[2016-05-12] MEDS: Piperacillin/Tazobactam 3.375 GM in D5% in Water (Mini-Bag+) 100 ML IVPB SCH ×2 (02:14→13:52)
[2016-05-12] MEDS: 0.9 % Sodium Chloride 1,000 ML IVC SCH (05:18)
[2016-05-12] MEDS: Cholecalciferol (D-3) 1,000 UNIT TABLET PO SCH (07:36)
[2016-05-12] MEDS: Aspirin Enteric Coated 81 MG Tablet PO SCH (07:36)
[2016-05-12] MEDS: Multivit/Ca/Min/Fe/FA 1 TAB TABLET PO SCH (07:36)
[2016-05-12] MEDS: FISH OIL PO SCH (07:41)
[2016-05-12] MEDS: FLAX SEED OIL PO SCH (07:42)
--- NOTE | 2016-05-12 08:25 | Carotid Imaging Report ---
Carotid Duplex Patient Name:Merritt Villarreal Order Number:[id number] Procedure Date:05/11/2016 Date:1930ge:85 yrs Gender:Male Lt BP:117 / 62 mmHg Rt.BP:116 / 60 mmHgHeart Rate: Location:[facility] Room #: 2N4 Proposal Manager Writer:Anastacia Soni Referring MD:Bobbi Bergman CNP care worker:None Reading MD:Abner Evangelista MD Primary Indications:Syncope Risk Factors Yes/No Hypercholesterolemia Yes Impressions: Findings: Bilateral carotid system has nonstenotic plaque. Recommendations: After imaging the patient returned to their room. Findings Carotid Duplex: Right: The right proximal common carotid artery has a PSV of 75 cm/s and a EDV of 10 cm/s. The right mid common carotid artery has a PSV of 78 cm/s and a EDV of 10 cm/s. The right distal common carotid artery has a PSV of 62 cm/s and a EDV of 11 cm/s. There is nonstenotic plaque in the right bifurcation with a PSV of 64 cm/s and a EDV of 15 cm/s. There is nonstenotic plaque in the right proximal internal carotid artery with a PSV of 107 cm/s and a EDV of 28 cm/s. The right mid internal carotid artery has a PSV of 81 cm/s and a EDV of 23 cm/s. The right distal internal carotid artery has a PSV of 78 cm/s and a EDV of 21 cm/s. The right eca has a PSV of 84 cm/s and a EDV of 4 cm/s. The right vertebral artery has a PSV of 67 cm/s and a EDV of 15 cm/s. Left: The left proximal common carotid artery has a PSV of 59 cm/s and a EDV of 8 cm/s. The left mid common carotid artery has a PSV of 55 cm/s and a EDV of 9 cm/s. The left distal common carotid artery has a PSV of 85 cm/s and a EDV of 6 cm/s. There is nonstenotic plaque in the left bifurcation with a PSV of 94 cm/s and a EDV of 14 cm/s. There is nonstenotic plaque in the left proximal internal carotid artery with a PSV of 84 cm/s and a EDV of 30 cm/s. The left mid internal carotid artery has a PSV of 91 cm/s and a EDV of 25 cm/s. There is stenosis of not well visualized in the left distal internal carotid artery with a PSV of 110 cm/s and a EDV of 30 cm/s. The left eca has a PSV of 52 cm/s and a EDV of 2 cm/s. The left vertebral artery has a PSV of 59 cm/s and a EDV of 10 cm/s. The left distal internal carotid artery was not well visualized. Prior Study: No prior study available for comparison. Carotid Results Right PSV EDV Assessment Proximal CCA 75 10 Normal Mid CCA 78 10 Normal Distal CCA 62 11 Normal Bifurcation 64 15 Non Stenotic Plaque Proximal ICA 107 28 Non Stenotic Plaque Mid ICA 81 23 Normal Distal ICA 78 21 Normal ECA 84 4 Normal Vertebral Artery 67 15 Normal Left PSV EDV Assessment Proximal CCA 59 8 Normal Mid CCA 55 9 Normal Distal CCA 85 6 Normal Bifurcation 94 14 Non Stenotic Plaque Proximal ICA 84 30 Non Stenotic Plaque Mid ICA 91 25 Normal Distal ICA 110 30 Not Well Visualized ECA 52 2 Normal Vertebral Artery 59 10 Normal Ratio's Right ICA/CCA Ratio: 1.37 ICA/CCA Values: 107/78 Left ICA/CCA Ratio: 2.00 ICA/CCA Values: 110/55 Updated by Abner Evangelista MD on 05/12/2016 8:20:32 AM electronically signed on 05/12/2016 8:20:44 AM with status of Final
[2016-05-12] MEDS ORDERED: Aminoglycoside Consult 1 EACH MC ONE (08:40)
--- NOTE | 2016-05-12 08:58 | ECHO - Doppler Report ---
Echocardiogram Name: Merritt Villarreal Date of Study: 05/11/2016 Date: 1930 Ht: 70.0 in Medical Record#: [id number] Age: 85 Wt: 154.0 lb Gender: Male BSA: 1.87 Order #: [id number] Location: [facility] Room #: 2N4 Reading Physician: Charles Steele MD, [facility] Sterile Processing Technician: Anastacia Soni Ordering Physician: Bobbi Bergman CNP Primary Physician: None Indications: NSTEMI Impressions: Low-normal LV systolic function, LVEF 50% Mild concentric left ventricular hypertrophy. Moderate left ventricular diastolic dysfunction. Normal right ventricular structure and function. A device lead was visualized in the right atrium and right ventricle. Mildly dilated left atrium. Severely calcified aortic valve. Valve morphology was not well visualized. Severe/critical aortic stenosis. Peak velocity 4.66 m/sec, mean gradient 47 mmHg, aortic valve area 0.63 cm2. Mild aortic regurgitation. Mild mitral regurgitation. Mild tricuspid regurgitation. Mild pulmonic regurgitation. Mild pulmonary hypertension. Estimated RVSP = 43 mmHg. Consider cardiology consultation. Left Ventricular Wall Motion: Rest Echo Findings All wall segments showed normal motion. Findings: Study Quality * Suboptimal echo windows. ECG Findings * Probable sinus rhythm with ventricular pacing. Left Ventricle * Low-normal LV systolic function, LVEF 50% * Mild concentric left ventricular hypertrophy. * Moderate left ventricular diastolic dysfunction. Right Ventricle * Normal right ventricular structure and function. Device lead * A device lead was visualized in the right atrium and right ventricle. Left Atrium * Mildly dilated left atrium. Right Atrium * Normal right atrial size. Aorta * Normally sized aortic root. Pericardium * There is a trivial pericardial effusion present. IVC * The IVC is not dilated. Aortic Valve * Severely calcified aortic valve. Valve morphology was not well visualized. * Severe/critical aortic stenosis. Peak velocity 4.66 m/sec, mean gradient 47 mmHg, aortic valve area 0.63 cm2. * Mild aortic regurgitation. Mitral Valve * Mild-moderate mitral annular calcification * No mitral stenosis. * Mild mitral regurgitation. Tricuspid Valve * Normal tricuspid valve structure. * No tricuspid stenosis. * Mild tricuspid regurgitation. * Mild pulmonary hypertension. Estimated RVSP = 43 mmHg. Pulmonic Valve * Pulmonic valve not well visualized. * Mild pulmonic regurgitation. History Hypercholesteremia Family History of CAD Pacer/ICD Implant Measurements: BP: 116/ 60 2D Normal Values RVIDd: 3.90 cm IVSd: 1.10 cm 0.6 - 1.0 cm LVIDd: 4.60 cm 3.7 - 5.6 cm LVPWd: 1.20 cm 0.6 - 1.1 cm LVIDs: 3.50 cm 1.5 - 3.6 cm AO: 3.00 cm < 4.0 cm LVOT Diam: 2.00 cm LA volume: 70 Mitral Valve Peak E:.64 m/sec Peak A:.50 m/sec E/A Ratio:1.3 Peak E' Lat Lavon:7.31 cm/s Peak E' Med Lavon:3.7 cm/s E/E' Lat Ratio:8.8 E/E' Med Ratio:17.4 Aortic Valve Peak Lavon:4.66 m/sec Mean Lavon:3.14 m/sec Peak Grad:87.00 mmHg Mean Grad:47.00 mmHg Valve Area:.63 cm2 Tricuspid Valve TV Regurg Peak Grad: 38.00mmHg TV Regurg Peak Lavon: 3.09m/sec Updated by Charles Steele MD, [facility] on 05/12/2016 8:50:51 AM electronically signed on 05/12/2016 8:53:46 AM with status of Final Wall Motion Chun: 1=Normal, 2=Hypokinesis, 3=Akinesis, 4=Dyskinesis, 5=Aneurysmal, 6=Hyperkinetic, X=Not Visualized (Blank)=Missing
[2016-05-12] MEDS ORDERED: Vancomycin (wt based) 1,000 MG VIAL IVPB SCH (09:00)
--- NOTE | 2016-05-12 09:52 | Internal Med Progress Note ---
<Jah West - Last Filed: 05/12/16 14:26> Date of Encounter: 05/12/16 Time of Encounter: 08:00 - Assessment and plan (1) NSTEMI (non-ST elevated myocardial infarction) Current Visit: Yes Status: Acute Assessment and plan: Patient has no complaints of chest pain, troponins were 2.4, 2.61, and finally 1.93. He was previously anticoagulation on heparin drip, FOB performed on was positive for blood. Heparin drip was stopped for worsening anemia and positive FOB. We will continue to monitor. Cardiology following, pressure recommendations for continued management/ Patient does not appear to be candidate for left heart catheter due to severe to critical aortic stenosis Cardiology discussed bowel replacement with cardiothoracic surgeon, who stated that he will make outpatient follow-up to discuss his aortic stenosis once stabilized. Continue medical management with aspirin and statin (2) Aortic stenosis, severe Current Visit: Yes Status: Acute Assessment and plan: Echocardiogram showed low normal left ventricular systolic dysfunction at ejection fraction 50% Moderate left ventricular diastolic dysfunction Severe/critical aortic stenosis Cardiology following patient in regard to an STEMI, management reevaluated given aortic stenosis CT spoken to and will wait for resolution of current symptoms prior to assessment and possible correction of aortic stenosis We will hold beta samaria given severity of aortic stenosis (3) Pneumonia Current Visit: Yes Status: Acute Assessment and plan: Patient CT concerning for pneumonia, given living situation will treat as a HCAP Continue vancomycin, Zosyn, Levaquin started 05/11/16 day 2 Tylenol for fever Continue when necessary breathing treatments Sputum and blood cultures Qualifiers: Pneumonia type: due to unspecified organism Laterality: unspecified laterality Lung location: unspecified part of lung Qualified Code(s): J18.9 - Pneumonia, unspecified organism (4) Anemia Current Visit: Yes Status: Acute Assessment and plan: Currently unsure patient's baseline hemoglobin given dearth of baseline labs. Therapies be some evidence of dilation occurred given global decrease in blood cell count, white blood cell, hemoglobin, and platelets are all down area was also found to be FOB positive, and there is concern that this might be contributing to his anemia. We will transfuse 1 unit of blood 40 mg Lasix following transfusion Continue to monitor Qualifiers: Anemia type: other cause Other causes of anemia: other cause, not classified Qualified Code(s): D64.89 - Other specified anemias (5) GI bleed Current Visit: Yes Status: Acute Assessment and plan: No evidence of gross hemorrhage, FOB positive. 40 mg pantoprazole twice a day ordered We will continue to monitor CBC Qualifiers: GI bleed type/associated pathology: unspecified gastrointestinal hemorrhage type Qualified Code(s): K92.2 - Gastrointestinal hemorrhage, unspecified (6) Heart failure Current Visit: Yes Status: Acute Assessment and plan: Patient has diastolic heart failure with severe/critical aortic stenosis as seen on echocardiogram performed on 05/11/16. Cardiology is following, appreciate recommendations for continuing management/ Care Continue fluid restriction Auction as needed We will continue monitor Qualifiers: Heart failure type: diastolic Heart failure chronicity: unspecified heart failure chronicity Qualified Code(s): I50.30 - Unspecified diastolic ( congestive) heart failure (7) ANNIE (acute kidney injury) Current Visit: Yes Status: Acute Assessment and plan: Patient presented with serum creatinine of 2.63 and estimated GFR of 23, after a day of gentle fluids serum creatinine was 2.28 aspirin GFR was 27. Some improvement was seen, both no prior labs is difficult to assess patient baseline. We will stop IV fluids, as patient taking by mouth, BNP elevated, and there is likely some dilation the patient's blood count Patient taking by mouth Continue to monitor Attempt to obtain old records Avoid potentially nephrotoxic agents (8) Atrial fibrillation Current Visit: Yes Status: Acute Assessment and plan: Patient was on Apixaban prior to admission, he was then placed on heparin drip due to an STEMI. Heparin drip was stopped on 05/12/16 due to concerns of GI bleed given FOB-positive stool. Patient will likely need long-term anticoagulation as outpatient, or reevaluate after improvement and patient anemia seen. Will stop Heparin drip Start SCDs Qualifiers: Atrial fibrillation type: paroxysmal Qualified Code(s): I48.0 - Paroxysmal atrial fibrillation (9) Thrombocytopenia Current Visit: Yes Status: Acute Assessment and plan: No signs of active bleeding Continue monitor (10) DVT prophylaxis Current Visit: Yes Status: Acute Assessment and plan: Patient was on heparin drip as treatment for NSTEMI, but patient has shown signs of anemia and it is fecal occult blood positive. We will stop heparin drip, will discuss with cardiology Start SCDs - Time Spent With Patient Greater than 35 minutes - Subjective Interval history: Patient reports feeling tired this morning and just wanted to sleep. He states he is not able sleep well last night. He reports mild chest congestion, but no chest pain, no overt shortness of breath. Denies fevers and chills, denies nausea/vomiting, denies abdominal pain. - Constitutional Vitals: Temp Pulse Resp BP Pulse Ox 97.6 F 59 20 114/60 96 05/12/16 07:30 05/12/16 07:57 05/12/16 07:30 05/12/16 07:30 05/12/16 07:30 General appearance: Present: cooperative, A&O X 3, pleasant, no acute distress, answers questions appropriately - Head Head exam: Present: normocephalic. Absent: atraumatic (Abrasion over right eye) - Eye Eye exam: Present: conjuntiva pink, sclera anicteric - Neck Neck exam general surgery: Present: supple, trachea midline - Respiratory Respiratory exam: Present: rales (R>L). Absent: accessory muscle use, CTAB, rhonchi, wheezes - Cardiovascular Cardiovascular exam: Present: RRR, +S1, +S2, systolic murmur (2-3/6). Absent: diastolic murmur, gallop, rubs - GI/Abdominal GI/Abdominal exam: Present: normal bowel sounds, soft, no peritoneal signs. Absent: distended, tenderness - Extremities Exam Extremities exam: Present: warm, radial pulses palpable and symetrical. Absent : calf tenderness, cyanotic, pedal edema, tenderness - Neurological Exam Neurological exam: Present: alert, oriented X3, no focal deficits. Absent: facial droop, speech deficit - Skin Skin exam: Present: dry, intact Internal Medicine: Result - Labs CBC & Chem 7: 05/12/16 01:00 05/12/16 01:00 Labs: Short CBC 05/12/16 Range/Units 01:00 WBC 7.8 (4.3-11.1) K/mcL Hgb 7.9 L (12.9-16.9) g/dL Hct 24.4 L (37.5-50.1) % Plt Count 80 L (140-400) K/mcL Neutrophils # 6.0 (1.6-8.9) K/mcL BMP 05/12/16 01:00 Sodium 140 Potassium 5.0 H Chloride 115 H Carbon Dioxide 19 BUN 60 H Creatinine 2.28 H Glucose 108 H Calcium 8.5 L Cardiac Enzymes 05/11/16 05/12/16 Range/Units 17:44 01:00 Troponin I 2.61 H* 1.93 H* (0-0.03) ng/mL Urine 05/11/16 Range/Units 17:26 Urine Color Yellow (Yellow) Urine Clarity Slightly Hazy (Clear) Urine pH 6.0 (5.0-8.0) pH Units Ur Specific Silver 1.022 (1.010-1.025) Urine Protein 100 H (Neg-Trace) mg/dL Urine Glucose (UA) Normal (Normal) mg/dL - ABG Interpretation ABG results: PT/INR, D-dimer PT 14.7 Seconds (9.4-12.1) H 05/11/16 12:00 Consult Discharge Plan - Plan Referrals: Zeyad Costa MD [Primary Care Provider] - 05/20/16 9:00 am NO,PCP [Non-Partnered Physician] - Misael Moore DO [Partnered Physician] - (SENT WEB REQUEST ON 05-12-16 @ 6104) <Dane Dahl - Last Filed: 05/12/16 17:26> Date of Encounter: 05/12/16 - Constitutional Vitals: Temp Pulse Resp BP Pulse Ox 97.5 F L 67 18 119/61 95 05/12/16 16:38 05/12/16 16:38 05/12/16 16:38 05/12/16 16:38 05/12/16 16:38 Internal Medicine: Result - Labs CBC & Chem 7: 05/12/16 01:00 05/12/16 01:00 Labs: Short CBC 05/12/16 Range/Units 01:00 WBC 7.8 (4.3-11.1) K/mcL Hgb 7.9 L (12.9-16.9) g/dL Hct 24.4 L (37.5-50.1) % Plt Count 80 L (140-400) K/mcL Neutrophils # 6.0 (1.6-8.9) K/mcL BMP 05/12/16 01:00 Sodium 140 Potassium 5.0 H Chloride 115 H Carbon Dioxide 19 BUN 60 H Creatinine 2.28 H Glucose 108 H Calcium 8.5 L Cardiac Enzymes 05/11/16 05/12/16 Range/Units 17:44 01:00 Troponin I 2.61 H* 1.93 H* (0-0.03) ng/mL Urine 05/11/16 Range/Units 17:26 Urine Color Yellow (Yellow) Urine Clarity Slightly Hazy (Clear) Urine pH 6.0 (5.0-8.0) pH Units Ur Specific Silver 1.022 (1.010-1.025) Urine Protein 100 H (Neg-Trace) mg/dL Urine Glucose (UA) Normal (Normal) mg/dL - ABG Interpretation ABG results: PT/INR, D-dimer PT 14.7 Seconds (9.4-12.1) H 05/11/16 12:00 - Attending Attestation I agree with the physical examination findings, assessment and plan as documented by Dr. West. Patient admitted due to an STEMI, acute kidney injury and pneumonia in the setting of severe aortic stenosis. Heparin drip was stopped due to GI bleeding. Additionally, hemoglobin downtrending. Will continue monitoring hemoglobin, we will transfuse 1 unit of PRBC today. Will give 1 dose of Lasix after transfusion. Patient with multiple comorbidities, cardiology evaluated the case and has signed off, possible TAVR as outpatient. D/W patient and his family in detail.
--- NOTE | 2016-05-12 10:00 | Electrocardiograph Report ---
[facility] Test Date: 2016-05-11 Pat Name: Merritt Villarreal Department: 105 Room: 2N04 Gender: M Claim Processor: : 1930 Requested By: Wilberto Robb Order Number: [id number] Reading MD: Zeyad Yanez Measurements Intervals [place] Rate: 82 P: 74 [place]: 210 QRS: -67 QRSD: 155 T: 110 QT: 406 QTc: 444 Interpretive Statements ELECTRONIC VENTRICULAR PACEMAKER ABNORMAL RHYTHM ECG Electronically Signed On 05-12-16 09:59:22 EST by Zeyad Yanez
[2016-05-12] MEDS ORDERED: Lidocaine -MPF 2% 5 ML VIAL INFILT ONE (10:28)
[2016-05-12] MEDS ORDERED: *HR* Propofol 200 MG/20 ML VIAL IVP ONE (10:28)
--- NOTE | 2016-05-12 10:31 | Cardiology Progress Note ---
Date of Encounter: 05/12/16 Time of Encounter: 10:29 Assessment and Plan (1) NSTEMI (non-ST elevated myocardial infarction) Current Visit: Yes Status: Acute Troponin elevation, 2.4, 2.61, 1.93. NSTEMI in the setting of pnuemonia, possible ANNIE, anemia, and severe critical aortic stenosis. Heparin drip d/c'd for worsening anemia. Hgb 7.9. Stool guiac was positive. He denies chest pain. TTE- EF 50%, mild concentric LVH, moderate diastolic dysfunction, severely calcified aortic valve. Valve morphology not well visualized, Severe critical aortic stenosis, peak velocity 4.66ms, MG 47 mmHg, BIJAN 0.63 cm2, mild aortic regurgitaion. Mild TR, MR, and MD also seen. CT surgery consulted for severe aortic stenosis. Likely not candidate for repair /replacement currently d/t anemia and PNA. Currently not a candidate for [facility] d/t above. Continue asa and statin. No beta-samaria in the setting of severe critical aortic stenosis. (2) Aortic stenosis, severe Current Visit: Yes Status: Acute Severe critical aortic stenosis peak velocity 4.66ms, MG 47 mmHg, BIJAN 0.63 cm2, mild aortic regurgitaion. Consider further work-up in the future once anemia and pneumonia resolved. (3) Syncope Current Visit: Yes Status: Acute Syncope in the setting of multiple co-morbidities. Severe critical aortic stenosis. In-patient device check did not show any concerning arrhythmias. Pt seen to have PAF that was rate controlled. Qualifiers: Syncope type: unspecified Qualified Code(s): R55 - Syncope and collapse (4) Atrial fibrillation Current Visit: Yes Status: Acute PAF seen on device check. BB added. No recurrent afib seen. Eliquis on hold d/t starting heparin gtt. Pt now anemic. Restart anticoagulation in future once anemia/bleeding resolved. CHADS VASc=4 (CHF, HTN, age2) Qualifiers: Atrial fibrillation type: paroxysmal Qualified Code(s): I48.0 - Paroxysmal atrial fibrillation (5) Pneumonia Current Visit: Yes Status: Acute Hospitalist following. On IV antibiotic. Qualifiers: Pneumonia type: due to unspecified organism Laterality: unspecified laterality Lung location: unspecified part of lung Qualified Code(s): J18.9 - Pneumonia, unspecified organism (6) ANNIE (acute kidney injury) Current Visit: Yes Status: Acute Baseline kidney function unknown. Records ordered from [facility] to compare. Hospitalist following. Discussion w patient/family: The assessment and plan as outlined above was discussed with the patient and/or family members who expressed understanding and agreement. All questions were answered. Thank you for involving us in the care of your patient. Please call with any questions. Subjective Principal diagnosis: NSTEMI, Severe aortic stenosis, pneumonia, anemia Interval history: Mr. Villarreal is resting comfortably in bed. He denies recurrent symptoms, denies SOB or chest pain. Hgb noted to decrease to 7.9. Denies signs of bleeding. Stool guiac was positive. Objective Vital Signs, Last 4 Hours Temp Pulse Resp BP Pulse Ox 05/12/16 07:57 59 05/12/16 07:30 97.6 F 67 20 114/60 96 General: Conversant, No Apparent Distress HEENT: Atraumatic, Normocephaly, Mucus Membranes Moist Neck: No JVD, Normal carotid pulses Cardiac: Reg Rate and Rhythm, Normal S1 and S2, No Murmur (3/6 systolic murmur noted.), Other (PPM in upper left chest. atrial/Ventricular paced on telemetry. ) Lungs: Other (Rales noted in bilateral posterior bases, respirations easy. ) Neuro: Alert and responsive, No focal deficits noted Abdomen: Soft, Non-Tender Skin: No rashes noted on visualized skin Musculoskeletal: No Chest Wall Tenderness Extremities: No Clubbing, No Cyanosis, No Edema, Normal Pulses Results 05/12/16 01:00 05/12/16 01:00 Lab Results 05/11/16 05/12/16 05/12/16 17:44 01:00 01:00 WBC 7.8 Hgb 7.9 L Hct 24.4 L Plt Count 80 L APTT Sodium Potassium Chloride Carbon Dioxide BUN Creatinine Glucose Calcium Troponin I 2.61 H* 1.93 H* 05/12/16 05/12/16 05/12/16 01:00 01:00 06:37 WBC Hgb Hct Plt Count APTT 67.6 H D 58.3 H Sodium 140 Potassium 5.0 H Chloride 115 H Carbon Dioxide 19 BUN 60 H Creatinine 2.28 H Glucose 108 H Calcium 8.5 L Troponin I - Imaging and Cardiology Echo: report reviewed (50%, mild concentric LVH, moderate diastolic dysfunction , severely calcified aortic valve. Valve morphology not well visualized, Severe critical aortic stenosis, peak velocity 4.66ms, MG 47 mmHg, BIJAN 0.63 cm2, mild aortic regurgitaion. Mild TR, MR, and MD also seen.) - EKG Interpretation EKG results cardiology: other (24 hour telemetry review shows SR- ventricular and AV pacing. No recurrent afib seen in telemetry review.) Consult Discharge Plan - Plan Referrals: NO,PCP [Primary Care Provider] -
[2016-05-12] MEDS: Acetaminophen 325 MG TABLET PO PRN (12:33)
[2016-05-12] MEDS: Pantoprazole 40 MG VIAL IVP SCH ×2 (12:33→17:32)
--- NOTE | 2016-05-12 14:22 | Electrocardiograph Report ---
[facility] Test Date: 2016-05-11 Pat Name: SAL CHO Department: 103 Room: 2N04 Gender: M Esl Professor: SERINA : 1930 Requested By: Alfred Muro Order Number: [id number] Reading MD: Zeyad Yanez Measurements Intervals [place] Rate: 64 P: ND: 0 QRS: -45 QRSD: 155 T: 250 QT: 458 QTc: 468 Interpretive Statements ATRIAL FLUTTER/TACHYCARDIA RIGHT BUNDLE BRANCH BLOCK LEFT VENTRICULAR HYPERTROPHY AND ST-T CHANGE Electronically Signed On 05-12-16 14:20:56 EST by Zeyad Yanez
[2016-05-12] MEDS ORDERED: 0.9 % Sodium Chloride 250 ML ONE (14:31)
[2016-05-12] MEDS ORDERED: Ipratropium/Albuterol Neb 3 ML IH PRN (14:39)
[2016-05-12] MEDS ORDERED: Furosemide 40 MG/4 ML VIAL IVP ONE (16:00)
[2016-05-12] MEDS ORDERED: Vancomycin 1,250 MG in D5% in Water 250 ML IVPB ONE (20:25)
[2016-05-13] MEDS: Piperacillin/Tazobactam 3.375 GM in D5% in Water (Mini-Bag+) 100 ML IVPB SCH (01:34)
[2016-05-13 04:55] LABS: Calcium 9.3 mg/dL (8.6-10.8); Potassium 4.1 mEq/L (3.5-4.5)
[2016-05-13 05:42] LABS: Basophils % 0.4 %; Eosinophils # 0.4 K/mcL (0.0-0.6); Eosinophils % 4.9 %; Hematocrit 33.5 % (37.5-50.1); Immature Granulocytes % 2.6 % (0-4); Immature Platelets 10.4 % (1.1-6.1); Lymphocytes % 12.5 %; Mean Corpuscular HGB Conc 34.6 g/dL (31.6-35.5); Mean Corpuscular Hemoglobin 31.8 pg (28.0-33.3); Mean Corpuscular Volume 91.8 fL (83.0-100.0); Mean Platelet Volume 11.5 fL (9.4-12.4); Monocytes # 0.8 K/mcL (0.0-1.3); Monocytes % 10.3 %; Neutrophils # 5.2 K/mcL (1.6-8.9); Platelet Count 108 K/mcL (140-400); Red Blood Count 3.65 M/mcL (4.19-5.50); Red Cell Distribution Width 15.9 % (11.5-14.5); Segmented Neutrophils % 69.3 %
[2016-05-13 05:46] LABS: Hemoglobin 11.6 g/dL (12.9-16.9)
[2016-05-13] MEDS: Pantoprazole 40 MG VIAL IVP SCH ×2 (07:11→17:25)
[2016-05-13] MEDS: Aspirin Enteric Coated 81 MG Tablet PO SCH (08:05)
[2016-05-13] MEDS: Cholecalciferol (D-3) 1,000 UNIT TABLET PO SCH (08:05)
[2016-05-13] MEDS: FLAX SEED OIL PO SCH (08:05)
[2016-05-13] MEDS: FISH OIL PO SCH (08:05)
[2016-05-13] MEDS: Multivit/Ca/Min/Fe/FA 1 TAB TABLET PO SCH (08:05)
--- NOTE | 2016-05-13 09:10 | Internal Med Progress Note ---
<Jah West - Last Filed: 05/13/16 09:07> Date of Encounter: 05/13/16 Time of Encounter: 08:45 - Assessment and plan (1) NSTEMI (non-ST elevated myocardial infarction) Current Visit: Yes Status: Acute Assessment and plan: Patient has no complaints of chest pain, troponins were 2.4, 2.61, and finally 1.93. He was previously anticoagulation on heparin drip, FOB performed on was positive for blood. Heparin drip was stopped for worsening anemia and positive FOB. We will continue to monitor. Patient does not appear to be candidate for left heart catheter currently Cardiology discussed valve replacement with cardiothoracic surgeon, who stated that he will make outpatient follow-up to discuss his aortic stenosis once stabilized. Continue medical management with aspirin and statin, will hold beta samaria due to critical aortic stenosis (2) Aortic stenosis, severe Current Visit: Yes Status: Acute Assessment and plan: Echocardiogram showed low normal left ventricular systolic dysfunction at ejection fraction 50% Moderate left ventricular diastolic dysfunction Severe/critical aortic stenosis Cardiology spoke with cardiothoracic surgery yesterday regarding treatment of his aortic stenosis, cardiology notes states that his critical aortic stenosis cannot be evaluated and treated as outpatient We will hold beta samaria given severity of aortic stenosis (3) Pneumonia Current Visit: Yes Status: Acute Assessment and plan: Patient CT concerning for pneumonia, given the patient resides in assisted living facility will treat as a HCAP. All cultures negative so far, will deescalate antibiotics. Will discontinue vancomycin and Zosyn Continue Levaquin day 3 Tylenol for fever Continue when necessary breathing treatments Qualifiers: Pneumonia type: due to unspecified organism Laterality: unspecified laterality Lung location: unspecified part of lung Qualified Code(s): J18.9 - Pneumonia, unspecified organism (4) Anemia Current Visit: Yes Status: Acute Assessment and plan: Currently unsure patient's baseline hemoglobin given dearth of baseline labs. Therapies be some evidence of dilution occurred given global decrease in blood cell count, white blood cell, hemoglobin, and platelets are all down area was also found to be FOB positive, and there is concern that this might be contributing to his anemia. One unit of blood transfused yesterday, recheck outpatient hemoglobin showed increased to 11.7 Continue to monitor Qualifiers: Anemia type: other cause Other causes of anemia: other cause, not classified Qualified Code(s): D64.89 - Other specified anemias (5) GI bleed Current Visit: Yes Status: Acute Assessment and plan: No evidence of gross hemorrhage, FOB positive. Concern for greater bleeding after anticoagulation restarted. We will consult GI and appreciate recommendations for outpatient anticoagulation 40 mg pantoprazole twice a day ordered We will continue to monitor CBC Qualifiers: GI bleed type/associated pathology: unspecified gastrointestinal hemorrhage type Qualified Code(s): K92.2 - Gastrointestinal hemorrhage, unspecified (6) Heart failure Current Visit: Yes Status: Acute Assessment and plan: Patient has diastolic heart failure with severe/critical aortic stenosis as seen on echocardiogram performed on 05/11/16. Cardiology signed off and recommended outpatient follow-up to address aortic valve stenosis Continue fluid restriction We will continue monitor Qualifiers: Heart failure type: diastolic Heart failure chronicity: unspecified heart failure chronicity Qualified Code(s): I50.30 - Unspecified diastolic ( congestive) heart failure (7) ANNIE (acute kidney injury) Current Visit: Yes Status: Acute Assessment and plan: Patient presented with serum creatinine of 2.63 and estimated GFR of 23, after a day of gentle fluids serum creatinine was 2.28 aspirin GFR was 27. Slight worsening of kidney function seen today, records sent from [facility] do not include kidney function. Unsure if patient at baseline or if suffering a cat We will stop IV fluids, as patient taking by mouth, BNP was elevated on admission Encourage by mouth intake Continue to monitor Attempt to obtain old records Avoid potentially nephrotoxic agents (8) Atrial fibrillation Current Visit: Yes Status: Acute Assessment and plan: Patient was on Apixaban prior to admission, he was then placed on heparin drip due to NSTEMI. Heparin drip was stopped on 05/12/16 due to concerns of GI bleed given FOB-positive stool. Patient CHADVASc 7 and well need long-term anticoagulation, there is concern for FOB positive stool. Heparin drip stopped yesterday We will consult GI to help address risk of long-term anticoagulation Start SCDs Qualifiers: Atrial fibrillation type: paroxysmal Qualified Code(s): I48.0 - Paroxysmal atrial fibrillation (9) Thrombocytopenia Current Visit: Yes Status: Acute Assessment and plan: No signs of active bleeding, platelet number slightly improved today Continue monitor (10) DVT prophylaxis Current Visit: Yes Status: Acute Assessment and plan: Patient was on heparin drip as treatment for NSTEMI, but patient has shown signs of anemia and it is fecal occult blood positive. Heparin drip stopped yesterday, concerned for FOB positive Start SCDs - Subjective Interval history: Patient reports doing well this morning. Stating he has had good appetite, he denies chest pain, denies shortness of breath, states that his cough has improved somewhat. He states that he has no longer requires home oxygen and is doing well overall - Constitutional Vitals: Temp Pulse Resp BP Pulse Ox 97.6 F 79 16 128/66 92 L 05/13/16 07:32 05/13/16 08:47 05/13/16 07:32 05/13/16 07:32 05/13/16 08:46 General appearance: Present: cooperative, A&O X 3, pleasant, no acute distress, answers questions appropriately - Head Head exam: Present: normocephalic. Absent: atraumatic (Abrasion over right eyebrow) - Eye Eye exam: Present: conjuntiva pink, sclera anicteric - Neck Neck exam general surgery: Present: supple, trachea midline - Respiratory Respiratory exam: Present: rales (Plans auscultated right lower lobe). Absent: accessory muscle use, CTAB, rhonchi, wheezes - Cardiovascular Cardiovascular exam: Present: RRR, +S1, +S2, systolic murmur (2/6). Absent: diastolic murmur, gallop, rubs - GI/Abdominal GI/Abdominal exam: Present: normal bowel sounds, soft, no peritoneal signs. Absent: distended, tenderness - Extremities Exam Extremities exam: Present: warm, radial pulses palpable and symetrical. Absent : calf tenderness, cyanotic, pedal edema - Neurological Exam Neurological exam: Present: alert, oriented X3, no focal deficits. Absent: facial droop, speech deficit - Skin Skin exam: Present: dry, intact Internal Medicine: Result - Labs CBC & Chem 7: 05/13/16 05:28 05/13/16 04:26 Labs: Short CBC 05/13/16 Range/Units 05:28 WBC 7.6 (4.3-11.1) K/mcL Hgb 11.6 L D (12.9-16.9) g/dL Hct 33.5 L (37.5-50.1) % Plt Count 108 L (140-400) K/mcL Neutrophils # 5.2 (1.6-8.9) K/mcL BMP 05/13/16 04:26 Sodium 141 Potassium 4.1 Chloride 111 H Carbon Dioxide 20 BUN 49 H D Creatinine 2.36 H Glucose 92 Calcium 9.3 - ABG Interpretation ABG results: PT/INR, D-dimer PT 14.7 Seconds (9.4-12.1) H 05/11/16 12:00 Consult Discharge Plan - Plan Referrals: Zeyad Costa MD [Primary Care Provider] - 05/20/16 9:00 am NO,PCP [Non-Partnered Physician] - Misael Moore DO [Partnered Physician] - (SENT WEB REQUEST ON 05-12-16 @ [id number]) <Dane Dahl - Last Filed: 05/13/16 17:46> Date of Encounter: 05/13/16 - Constitutional Vitals: Temp Pulse Resp BP Pulse Ox 97.7 F 72 20 133/63 98 05/13/16 15:45 05/13/16 15:45 05/13/16 15:45 05/13/16 15:45 05/13/16 15:45 Internal Medicine: Result - Labs CBC & Chem 7: 05/13/16 05:28 05/13/16 04:26 Labs: Short CBC 05/13/16 Range/Units 05:28 WBC 7.6 (4.3-11.1) K/mcL Hgb 11.6 L D (12.9-16.9) g/dL Hct 33.5 L (37.5-50.1) % Plt Count 108 L (140-400) K/mcL Neutrophils # 5.2 (1.6-8.9) K/mcL BMP 05/13/16 04:26 Sodium 141 Potassium 4.1 Chloride 111 H Carbon Dioxide 20 BUN 49 H D Creatinine 2.36 H Glucose 92 Calcium 9.3 Liver Function 05/13/16 Range/Units 04:26 Total Bilirubin 0.7 (0.2-1.2) mg/dL Direct Bilirubin 0.3 (0.0-0.5) mg/dL AST 42 H (5-34) Units/L ALT 29 (0-55) Units/L Alkaline Phosphatase 71 (38-126) Units/L Albumin 2.7 L (3.5-5.0) g/dL - ABG Interpretation ABG results: PT/INR, D-dimer PT 14.7 Seconds (9.4-12.1) H 05/11/16 12:00 - Attending Attestation I examined this patient and my medical decision-making was reviewed with the TRAVEL PT/PA/Advanced Practice Nurse/Resident Physician. I agree with the documented findings, disposition and treatment plan as described except to the extent set forth below. Patient admitted with pneumonia, NSTEMI, symptomatic anemia with thrombocytopenia, GI bleeding with stool positive for blood. Kidney function has remained stable, however we do not know he has baseline kidney function. A fib, was on AC. Patient will undergo both upper endoscopy and colonoscopy tomorrow. He was on heparin drip which was stopped yesterday due to anemia and GI bleeding. Currently on aspirin according to recommendations by cardiology. Admission, the patient has severe aortic stenosis which needs surgical management, however due to multiple medical problems treatment of his aortic stenosis will be done later. Patient might benefit from TAVR.
[2016-05-13 10:18] LABS: Albumin 2.7 g/dL (3.5-5.0); Albumin/Globulin Ratio 0.7 (1.1-2.2); Bilirubin,Direct 0.3 mg/dL (0.0-0.5); Bilirubin,Indirect 0.4 mg/dL (0.0-1.2); Bilirubin,Total 0.7 mg/dL (0.2-1.2); Globulin 3.7 g/dL (2.4-3.5); Total Protein 6.4 g/dL (6.0-8.3)
--- NOTE | 2016-05-13 12:05 | Gastroenterology Consult Note ---
<Charles Kwon - Last Filed: 05/13/16 12:02> Date of Encounter: 05/13/16 Time of Encounter: 10:20 - Assessment and plan (1) Anemia Current Visit: Yes Status: Acute Assessment and plan: Hgb 9.2 on admission, 11.6 today. Continue to monitor CBC and transfuse PRBC as needed. Qualifiers: Anemia type: other cause Other causes of anemia: other cause, not classified Qualified Code(s): D64.89 - Other specified anemias (2) GI bleed Current Visit: Yes Status: Acute Assessment and plan: FOBT positive on 05/12/2016. No melena or hematochezia noted. Plan for EGD and colonoscopy tomorrow. Clear liquid diet today, no red or purple. NPO at midnight. If unable tolerate NuLytely please use MiraLAX prep. If not clear by 6 AM, give 2 tap water enemas. Qualifiers: GI bleed type/associated pathology: unspecified gastrointestinal hemorrhage type Qualified Code(s): K92.2 - Gastrointestinal hemorrhage, unspecified (3) Thrombocytopenia Current Visit: Yes Status: Acute Assessment and plan: Unknown etiology. Patient denies alcohol use. Check hepatic panel and RUQ US to rule out cirrhosis. (4) NSTEMI (non-ST elevated myocardial infarction) Current Visit: Yes Status: Acute Assessment and plan: Management per primary team and cardiology. (5) ANNIE (acute kidney injury) Current Visit: Yes Status: Acute Assessment and plan: Management per primary team. - Time Spent With Patient Total time spent is greater than 50% in coordination of care (as documented) at patient's floor/unit and/or counseling patient: GI History of Present Illness - Data of Consult Patient: new to practice Consult date: 05/13/16 Requesting Physician: Dane Dahl - Consult Narrative Reason for consult: FOBT positive, anemia History of present illness: Mr. Villarreal is a 85 year old male with PMHx of Afib, HLD, and pacemaker who presented after syncopal episode at home. He lives in an assisted living apartment. He was walking back to his room from the dining room when he felt very exhausted and very short of breath. He does not remember what happened after that. He reportedly knocked on someone's door and fell on the floor. He did scrape his head during his fall. He had a decrease of consciousness for several minutes. He was transported to the ED via EMS. Patient has no complaints of chest pain, troponins were 2.4, 2.61, and finally 1.93. He was previously anticoagulation on heparin drip, FOB performed on 05/12/16 was positive for blood. Heparin drip was stopped for worsening anemia and positive FOBT. He is also noted to be thrombocytopenic, plts 97 on admission and 108 this AM. He denies any alcohol use. Procedures: None NSAIDs: ASA Anticoagulation: Eliquis Past Med Surg Social Fam HX - Past Medical History Medical history: non-contributory, atrial fibrillation, CHF, hyperlipidemia, other Psychiatric history: no psych history - Past Surgical History Surgical History: cataract, pacemaker - Social History Smoking Status: Never smoker Smokeless Tobacco Status: No Alcohol use: none Drug use: none - Family History Mother History Unknown: Yes Adopted: [place]: [place] Age: 90 Family Member Ethnicity: Non- Living Status: Age at : 90 Cause of : bleeding ulcers, cancer Hx Family Cardiac Disorders: No Hx Family Respiratory Disorders: No Hx Family Cancer: Yes Hx Family GI Disorders: Yes (bleeding ulcers, cancer) Hx Family Genitourinary Disorders: No Hx Family Endocrine Disorder: No Hx Family Musculoskeletal Disorders: No Hx Family Neuromuscular Disorders: No Hx Family Neurologic Disorders: No Hx Family HEENT Disorders: No Hx Family Autoimmune Disorders: No Hx Family Reproductive Disorders: No Hx Family Psychosocial Disorders: No Hx Family Medical Disorders: No - Gastrointestinal Gastrointestinal: Present: as per HPI - Constitutional Constitutional: as per HPI - EENT Eyes: as per HPI Ears: Present: as per HPI Nose, mouth and throat: Present: as per HPI - Cardiovascular Cardiovascular ROS: Present: as per HPI - Respiratory Respiratory IM: Present: as per HPI - Genitourinary Genitourinary: Absent: change in color, Urinary frequency - Neurological ROS Neurological GI: Present: as per HPI - Hematologic/Lymphatic Hematologic/Lymphatic pediatric: Present: as per HPI - Musculoskeletal Musculoskeletal ROS GI: Present: as per HPI - Integumentary Integumentary GI: Present: as per HPI - Psychiatric ROS Psychiatric GI: Present: as per HPI - Endocrine Endocrine IM: Present: as per HPI - Constitutional Vitals: Temp Pulse Resp BP Pulse Ox 97.6 F 73 16 128/66 92 L 05/13/16 07:32 05/13/16 11:10 05/13/16 07:32 05/13/16 07:32 05/13/16 08:46 General appearance: Present: cooperative, A&O X 3, no acute distress, answers questions appropriately - Head Head exam: Present: atraumatic, normocephalic - Eye Eye exam: Present: normal appearance, sclera anicteric - ENT ENT exam: Present: mucous membranes dry - Neck Neck exam general surgery: Present: normal inspection, trachea midline - Respiratory Respiratory exam: Present: rales (bilateral bases). Absent: respiratory distress, rhonchi - Cardiovascular Cardiovascular exam: Present: RRR, +S1, +S2 - GI/Abdominal GI/Abdominal exam: Present: soft, no peritoneal signs. Absent: distended, firm , guarding, tenderness - Rectal Rectal exam: Present: deferred - Extremities Exam Extremities exam: Present: warm - Neurological Exam Neurological exam: Present: no focal deficits - Psychiatric Psychiatric exam: Present: normal affect, normal mood - Skin Skin exam: Present: dry, intact, normal color, warm Results - Labs CBC & Chem 7: 05/13/16 05:28 05/13/16 04:26 Labs: Last Result Calcium 9.3 mg/dL (8.6-10.8) 05/13/16 04:26 Troponin I 1.93 ng/mL (0-0.03) H* 05/12/16 01:00 Triglycerides 56 mg/dL (< 150) 05/12/16 01:00 Stool Occult Blood Positive (Negative) A 05/12/16 05:00 Entire Visit Hgb 11.6 g/dL (12.9-16.9) L D 05/13/16 05:28 Hct 33.5 % (37.5-50.1) L 05/13/16 05:28 PT 14.7 Seconds (9.4-12.1) H 05/11/16 12:00 Total Bilirubin 0.7 mg/dL (0.2-1.2) 05/13/16 04:26 AST 42 Units/L (5-34) H 05/13/16 04:26 ALT 29 Units/L (0-55) 05/13/16 04:26 - ABG ABG results: PT/INR, D-dimer PT 14.7 Seconds (9.4-12.1) H 05/11/16 12:00 Consult Discharge Plan - Plan Referrals: Zeyad Costa MD [Primary Care Provider] - 05/20/16 9:00 am NO,PCP [Non-Partnered Physician] - Misael Moore DO [Partnered Physician] - (SENT WEB REQUEST ON 05-12-16 @ [id number]) <Lelia Matson - Last Filed: 05/13/16 17:26> Date of Encounter: 05/13/16 Time of Encounter: 14:00 - Time Spent With Patient Total time spent is greater than 50% in coordination of care (as documented) at patient's floor/unit and/or counseling patient: GI History of Present Illness - Data of Consult Requesting Physician: Dane Dahl - Consult Narrative History of present illness: Mr. Villarreal is a 85 year old male - Constitutional Vitals: Temp Pulse Resp BP Pulse Ox 97.7 F 72 20 133/63 98 05/13/16 15:45 05/13/16 15:45 05/13/16 15:45 05/13/16 15:45 05/13/16 15:45 Results - Labs CBC & Chem 7: 05/13/16 05:28 05/13/16 04:26 Labs: Last Result Calcium 9.3 mg/dL (8.6-10.8) 05/13/16 04:26 Troponin I 1.93 ng/mL (0-0.03) H* 05/12/16 01:00 Triglycerides 56 mg/dL (< 150) 05/12/16 01:00 Stool Occult Blood Positive (Negative) A 05/12/16 05:00 Entire Visit Hgb 11.6 g/dL (12.9-16.9) L D 05/13/16 05:28 Hct 33.5 % (37.5-50.1) L 05/13/16 05:28 PT 14.7 Seconds (9.4-12.1) H 05/11/16 12:00 Total Bilirubin 0.7 mg/dL (0.2-1.2) 05/13/16 04:26 AST 42 Units/L (5-34) H 05/13/16 04:26 ALT 29 Units/L (0-55) 05/13/16 04:26 - ABG ABG results: PT/INR, D-dimer PT 14.7 Seconds (9.4-12.1) H 05/11/16 12:00 - Attending Attestation I examined this patient and my medical decision-making was reviewed with the ROLL FORMER/PA/Advanced Practice Nurse/Resident Physician. I agree with the documented findings, disposition and treatment plan as described except to the extent set forth below.
[2016-05-13] MEDS ORDERED: Levofloxacin 500 MG/100 ML 500 MG/100 ML BAG IVPB SCH (14:00)
[2016-05-13] MEDS ORDERED: SODIUM CHLORIDE/NAHCO3/KCL/PEG 4,000 ML SOLN.RECON PO ONE (17:00)
[2016-05-14 05:58] LABS: Immature Granulocytes % 1.1 % (0-4); Platelet Count 118 K/mcL (140-400); Red Cell Distribution Width 15.3 % (11.5-14.5)
[2016-05-14 06:00] LABS: Basophils % 0.4 %; Eosinophils # 0.3 K/mcL (0.0-0.6); Eosinophils % 5.4 %; Hemoglobin 10.6 g/dL (12.9-16.9); Immature Platelets 9.8 % (1.1-6.1); Lymphocytes # 0.6 K/mcL (0.6-4.6); Lymphocytes % 11.6 %; Mean Corpuscular HGB Conc 34.2 g/dL (31.6-35.5); Mean Corpuscular Hemoglobin 31.6 pg (28.0-33.3); Mean Corpuscular Volume 92.5 fL (83.0-100.0); Mean Platelet Volume 12.9 fL (9.4-12.4); Monocytes # 0.7 K/mcL (0.0-1.3); Monocytes % 13.3 %; Neutrophils # 3.6 K/mcL (1.6-8.9); Red Blood Count 3.35 M/mcL (4.19-5.50); Segmented Neutrophils % 68.2 %
[2016-05-14] MEDS: Pantoprazole 40 MG VIAL IVP SCH ×2 (06:12→18:50)
[2016-05-14 06:15] LABS: Potassium 4.3 mEq/L (3.5-4.5)
[2016-05-14 06:20] LABS: Large Platelets Present (Not Present); Platelet Estimate Slight Decrease (Normal); Reactive Lymphocytes Present (Not Present)
[2016-05-14] MEDS: Cholecalciferol (D-3) 1,000 UNIT TABLET PO SCH (07:30)
[2016-05-14] MEDS: FLAX SEED OIL PO SCH (07:30)
[2016-05-14] MEDS: Multivit/Ca/Min/Fe/FA 1 TAB TABLET PO SCH (07:30)
[2016-05-14] MEDS: Aspirin Enteric Coated 81 MG Tablet PO SCH (07:30)
[2016-05-14] MEDS: FISH OIL PO SCH (07:30)
--- NOTE | 2016-05-14 09:32 | Internal Med Progress Note ---
Date of Encounter: 05/14/16 Time of Encounter: 09:29 - Assessment and plan (1) Pneumonia Current Visit: Yes Status: Acute Assessment and plan: Patient CT concerning for pneumonia, given the patient resides in assisted living facility will treat as a HCAP. All cultures negative so far, will continue with Levaquin. vancomycin and Zosyn were stopped yesterday. Continue Levaquin day 4 Tylenol for fever Continue when necessary breathing treatments Qualifiers: Pneumonia type: due to unspecified organism Laterality: unspecified laterality Lung location: unspecified part of lung Qualified Code(s): J18.9 - Pneumonia, unspecified organism (2) NSTEMI (non-ST elevated myocardial infarction) Current Visit: Yes Status: Acute Assessment and plan: Patient has no complaints of chest pain, troponins were 2.4, 2.61, and finally 1.93. He was previously anticoagulation on heparin drip, FOB performed on was positive for blood. Heparin drip was stopped for worsening anemia and positive FOB. We will continue to monitor. Patient does not appear to be candidate for left heart catheter currently Cardiology discussed valve replacement with cardiothoracic surgeon, who stated that he will make outpatient follow-up to discuss his aortic stenosis once stabilized. Continue medical management with aspirin and statin, will hold beta samaria due to critical aortic stenosis. he will undergo endoscopic studies today. (3) Atrial fibrillation Current Visit: Yes Status: Acute Assessment and plan: Patient was on Apixaban prior to admission, he was then placed on heparin drip due to NSTEMI. Heparin drip was stopped on 05/12/16 due to concerns of GI bleed given FOB-positive stool. Patient CHADVASc 7 and well need long-term anticoagulation, there is concern for FOB positive stool. Heparin drip stopped Gastroenterology was consulted, the patient will go for endoscopic studies today. Qualifiers: Atrial fibrillation type: paroxysmal Qualified Code(s): I48.0 - Paroxysmal atrial fibrillation (4) Aortic stenosis, severe Current Visit: Yes Status: Acute Assessment and plan: Echocardiogram showed low normal left ventricular systolic dysfunction at ejection fraction 50% Moderate left ventricular diastolic dysfunction Severe/critical aortic stenosis Cardiology spoke with cardiothoracic surgery yesterday regarding treatment of his aortic stenosis, cardiology notes states that his critical aortic stenosis cannot be evaluated and treated as outpatient We will hold beta samaria given severity of aortic stenosis (5) GI bleed Current Visit: Yes Status: Acute Qualifiers: GI bleed type/associated pathology: unspecified gastrointestinal hemorrhage type Qualified Code(s): K92.2 - Gastrointestinal hemorrhage, unspecified (6) Thrombocytopenia Current Visit: Yes Status: Acute Assessment and plan: No signs of active bleeding Continue monitor - Time Spent With Patient 25 - 35 minutes - Subjective Interval history: The patient was seen and examined during rounds. He is nothing by mouth he calls of endoscopic studies to be performed later today. - Constitutional Vitals: Temp Pulse Resp BP Pulse Ox 97.8 F 71 16 138/62 92 L 05/14/16 07:46 05/14/16 07:46 05/14/16 07:46 05/14/16 07:46 05/14/16 07:46 General appearance: Present: cooperative, A&O X 3, pleasant, no acute distress, answers questions appropriately - Head Head exam: Present: atraumatic, normocephalic - Eye Eye exam: Present: PERRL, conjuntiva pink, sclera anicteric Pupils: Present: PERRL - Neck Neck exam general surgery: Present: supple, trachea midline. Absent: lymphadenopathy - Respiratory Respiratory exam: Present: CTAB. Absent: accessory muscle use, rales, rhonchi, wheezes - Cardiovascular Cardiovascular exam: Present: RRR, +S1, +S2. Absent: diastolic murmur, gallop, rubs, systolic murmur - GI/Abdominal GI/Abdominal exam: Present: normal bowel sounds, soft, no peritoneal signs. Absent: distended, tenderness - Extremities Exam Extremities exam: Present: warm, radial pulses palpable and symetrical. Absent : calf tenderness, cyanotic, pedal edema - Neurological Exam Neurological exam: Present: CN II-XII intact, oriented X3, no focal deficits. Absent: pronater drift, facial droop, speech deficit - Skin Skin exam: Present: dry, intact Internal Medicine: Result - Labs CBC & Chem 7: 05/14/16 04:58 05/14/16 04:58 Labs: Short CBC 05/14/16 Range/Units 04:58 WBC 5.3 (4.3-11.1) K/mcL Hgb 10.6 L (12.9-16.9) g/dL Hct 31.0 L (37.5-50.1) % Plt Count 118 L (140-400) K/mcL Neutrophils # 3.6 (1.6-8.9) K/mcL BMP 05/13/16 05/14/16 04:26 04:58 Sodium 141 142 Potassium 4.1 4.3 Chloride 111 H 111 H Carbon Dioxide 20 23 BUN 49 H D 39 H D Creatinine 2.36 H 2.07 H Glucose 92 80 Calcium 9.3 9.0 Liver Function 05/13/16 Range/Units 04:26 Total Bilirubin 0.7 (0.2-1.2) mg/dL Direct Bilirubin 0.3 (0.0-0.5) mg/dL AST 42 H (5-34) Units/L ALT 29 (0-55) Units/L Alkaline Phosphatase 71 (38-126) Units/L Albumin 2.7 L (3.5-5.0) g/dL - ABG Interpretation ABG results: PT/INR, D-dimer PT 14.7 Seconds (9.4-12.1) H 05/11/16 12:00 - Impressions Impressions Liver Ultrasound 05/13/16 16:00 IMPRESSION: Unremarkable appearance of the liver. The right kidney appears somewhat small with diffuse cortical thinning, suggestive of chronic medical renal disease. Small right pleural effusion. D/ / Stevan Ramey MD / Stevan Ramey MD Interpreting Provider: Stevan Ramey MD Consult Discharge Plan - Plan Referrals: Zeyad Costa MD [Primary Care Provider] - 05/20/16 9:00 am NO,PCP [Non-Partnered Physician] - Misael Moore DO [Partnered Physician] - (SENT WEB REQUEST ON 05-12-16 @ [id number])
[2016-05-14] MEDS ORDERED: Acetaminophen 325 MG TABLET PO PRN (12:03)
[2016-05-14] MEDS ORDERED: *HR* HYDROcodone/Acet 5/325 mg TABLET PO PRN (12:03)
[2016-05-14] MEDS ORDERED: Ondansetron 4 MG/2 ML VIAL IVP PRN (12:03)
[2016-05-14] MEDS ORDERED: Ipratropium/Albuterol Neb 3 ML IH PRN (12:03)
[2016-05-14] MEDS ORDERED: Naloxone 0.4 MG/ML INJ IVP PRN (12:03)
[2016-05-14] MEDS ORDERED: 0.9 % Sodium Chloride 1,000 ML IVC SCH (13:30)
--- NOTE | 2016-05-14 13:48 | Anesthesia Evaluation PreOp ---
Date of Encounter: 05/14/16 Time of Encounter: 13:46 - Past History Planned Operation: egd/cscope Cardiac History: MA (recent NSTEMI), CHF, Hyperlipidemia, Arrhythmia (af paroxysmanl), Pacemaker/ICD (report pending), Other (thrombocytopenia. echo 05/26 : ef 50, nl rv. Sever , mild ar, mild tr, mild pr, mild tr, mild pulm htn [id number]) Pulmonary History: Other (HCAP presented with sob/cough/hypoxia) STAKING ENGINEER History: Syncope, Other (neg CT head s/p fall) Other Medical History: Renal Anesthesia History: No Prior Anesthetic Complications, Past Anesthesia Alcohol Use: none Drug use: none Medications and Allergies Aspirin [Adult Low Dose Aspirin EC] 1 tab PO DAILY 02/25/15 [History] Cholecalciferol (Vitamin D3) [Vitamin D] 2,000 unit PO DAILY 02/25/15 [History] Docosahexanoic Acid/Epa [Fish Oil Concentrate Softgel] 1,000 mg PO DAILY [History] Finasteride [Proscar] 5 mg PO DAILY 02/25/15 [History] Flaxseed/Omega3,6,9/Fatty Acid [Flax Seed Oil 1,300 mg Softgel] 1,000 mg PO DAILY 02/25/15 [History] Garlic 25 mg PO BID 02/25/15 [History] Ginkgo Biloba [place] Extract [Ginkgo Biloba] 60 mg PO BID 02/25/15 [History] Multivitamin [Multivitamins] 1 each PO DAILY 02/25/15 [History] Simvastatin [Zocor] 20 mg PO HS 02/25/15 [History] Apixaban [Eliquis] 2.5 mg PO BID 01/15/16 [History] Loratadine [Claritin] 10 mg PO BID #30 tablet 05/08/16 [Rx] Mupirocin [Mupirocin] 1 appl TP BID 05/11/16 [History] Allergies No Known Allergies Allergy (Verified 01/15/16 11:53) - Meds/Allergy Pre-op Review Medications Reviewed: Yes Allergies Reviewed: Yes Beta Blockers on Current Med List: No Anesthesia Results - Labs 05/14/16 04:58 05/14/16 04:58 - Imaging EKG: report reviewed (a flutter, rbbb,) Anesthesia Exam Vital Signs/O2 Sat/Glucose, Most Current Temp Pulse Resp BP Pulse Ox 05/14/16 13:20 98.0 F 80 16 135/59 96 05/14/16 11:53 97.7 F 73 16 112/52 93 L 05/14/16 11:48 71 05/14/16 11:07 71 Height: 1.78 Weight: 68 NPO (# of Hours): >8 - HEENT Pupil (Motor): Pupils equal, EOMI Mallampati: II Teeth: Poor dentition Oral Opening: Greater than 3 - STAKING ENGINEER LOC: Oriented STAKING ENGINEER Motor: Normal RUE, Normal LUE, Normal RLE, Normal LLE, Normal Face STAKING ENGINEER Sensory: Normal: RUE, LUE, RLE, LLE, Face - Cardiac Rhythm: Regular Murmur: None - Pulmonary Breath Sounds: bilateral Clear Respiratory Effort: Symmetrical Anesthesia Assess/Plan ASA Score: 3 Modified [place] Scale for Level of Consciousness: Cooperative, oriented, and tranquil Anesthetic Plan: MAC Monitoring Plan: Standard Monitors Recovery Plan: Other
[2016-05-15] MEDS: Pantoprazole 40 MG VIAL IVP SCH ×2 (06:07→16:46)
[2016-05-15] MEDS ORDERED: Aspirin Enteric Coated 81 MG Tablet PO SCH (09:00)
[2016-05-15] MEDS ORDERED: Multivit/Ca/Min/Fe/FA 1 TAB TABLET PO SCH (09:00)
[2016-05-15] MEDS ORDERED: Patient Taking Own Medication 1 EACH PO SCH ×2 (09:00)
[2016-05-15] MEDS ORDERED: Cholecalciferol (D-3) 1,000 UNIT TABLET PO SCH (09:00)
[2016-05-15 10:00] LABS: Basophils % 0.4 %; Eosinophils # 0.3 K/mcL (0.0-0.6); Eosinophils % 4.8 %; Hematocrit 33.8 % (37.5-50.1); Hemoglobin 11.2 g/dL (12.9-16.9); Immature Granulocytes % 1.3 % (0-4); Lymphocytes # 0.6 K/mcL (0.6-4.6); Lymphocytes % 11.4 %; Mean Corpuscular HGB Conc 33.1 g/dL (31.6-35.5); Mean Corpuscular Volume 93.6 fL (83.0-100.0); Mean Platelet Volume 11.1 fL (9.4-12.4); Monocytes # 0.6 K/mcL (0.0-1.3); Monocytes % 10.7 %; Neutrophils # 3.9 K/mcL (1.6-8.9); Platelet Count 132 K/mcL (140-400); Red Blood Count 3.61 M/mcL (4.19-5.50); Red Cell Distribution Width 15.1 % (11.5-14.5); Segmented Neutrophils % 71.4 %
[2016-05-15 10:12] LABS: Calcium 9.1 mg/dL (8.6-10.8); Potassium 4.3 mEq/L (3.5-4.5)
[2016-05-15 11:55] VITALS: BP 112/62
--- NOTE | 2016-05-15 13:21 | Discharge Summary ---
Addendum entered and electronically signed by Jah West DO 05/15/16 13:34 : Additional instructions: Take all medications as prescribed: Resume home medications including Eliquis and continue Levaquin taken every 48 hours for 2 additional doses Follow-up with your PCP as scheduled, have lab work drawn prior to appointment to reassess hemoglobin Follow-up with her federal judicial law clerk as scheduled, to reassess after MN and for evaluation of severe/critical aortic stenosis Return to the emergency department if worsening symptoms Original Note: <Jah West - Last Filed: 05/15/16 13:14> Date of Encounter: 05/15/16 Time of Encounter: 09:05 - Discharge Diagnosis (1) NSTEMI (non-ST elevated myocardial infarction) Priority: Primary Status: Acute (2) Aortic stenosis, severe Priority: Primary Status: Acute (3) Pneumonia Priority: Primary Status: Acute Qualifiers: Pneumonia type: due to unspecified organism Laterality: unspecified laterality Lung location: unspecified part of lung Qualified Code(s): J18.9 - Pneumonia, unspecified organism (4) Anemia Priority: Primary Status: Acute Qualifiers: Anemia type: other cause Other causes of anemia: other cause, not classified Qualified Code(s): D64.89 - Other specified anemias (5) GI bleed Priority: Primary Status: Suspected Qualifiers: GI bleed type/associated pathology: unspecified gastrointestinal hemorrhage type Qualified Code(s): K92.2 - Gastrointestinal hemorrhage, unspecified (6) Heart failure Priority: Primary Status: Chronic Qualifiers: Heart failure type: diastolic Heart failure chronicity: unspecified heart failure chronicity Qualified Code(s): I50.30 - Unspecified diastolic ( congestive) heart failure (7) ANNIE (acute kidney injury) Priority: Primary Status: Acute (8) Atrial fibrillation Priority: Secondary Status: Acute Qualifiers: Atrial fibrillation type: paroxysmal Qualified Code(s): I48.0 - Paroxysmal atrial fibrillation (9) Thrombocytopenia Priority: Primary Status: Acute (10) DVT prophylaxis Priority: Secondary Status: Acute - Discharge Medications Prescriptions: Levofloxacin [Levaquin] 500 mg PO Q48H #2 tablet Home Medications: Aspirin [Adult Low Dose Aspirin EC] 1 tab PO DAILY 02/25/15 [History] Cholecalciferol (Vitamin D3) [Vitamin D3] 2,000 unit PO DAILY 02/25/15 [History] Docosahexanoic Acid/Epa [Fish Oil Concentrate Softgel] 1,000 mg PO DAILY [History] Finasteride [Proscar] 5 mg PO DAILY 02/25/15 [History] Flaxseed/Omega3,6,9/Fatty Acid [Flax Seed Oil 1,300 mg Softgel] 1,000 mg PO DAILY 02/25/15 [History] Garlic 25 mg PO BID 02/25/15 [History] Ginkgo Biloba [place] Extract [Ginkgo Biloba] 60 mg PO BID 02/25/15 [History] Multivitamin [Multivitamins] 1 each PO DAILY 02/25/15 [History] Simvastatin [Zocor] 20 mg PO HS 02/25/15 [History] Apixaban [Eliquis] 2.5 mg PO BID 01/15/16 [History] Loratadine [Claritin] 10 mg PO BID #30 tablet 05/08/16 [Rx] Mupirocin 1 appl TP BID 05/11/16 [History] Levofloxacin [Levaquin] 500 mg PO Q48H #2 tablet 05/15/16 [Rx] Allergies/Adverse Reactions: Allergies No Known Allergies Allergy (Verified 01/15/16 11:53) Procedures/tests Complete & Pending: Procedures Performed prior 72 hours Category Date Time Status US liver [US] Routine Exams 05/13/16 16:00 Completed Date of admission: 05/11/16 16:44 Primary care physician: Zeyad Costa, Consults: 05/13/16 08:19 Consult to Physical Therapy [CONS] Routine Comment: Evaluate, develop and implement POC OT [Consult to Occupational Therapy] [CONS] Routine Comment: Evaluate, develop and implement POC 05/13/16 09:23 Consult to Gastroenterology [CONS] Routine Consulting Provider: Gastroenterology Lacey Reason for Consult: Concern for jail anticoagulation with a.fib, NSTEMI , and FOB+ (no hematochezia or melena) Call Completed: Yes Discharging clinician: Jah West Anticipated date of discharge: 05/15/16 - Patient Status Disposition: Transfer SNF Condition: Fair Overall status at discharge: patient is progressing back to baseline - Discharge Instructions Follow Up With: Zeyad Costa MD [Primary Care Provider] - 05/20/16 9:00 am (Pt is ECF. ) NO,PCP [Non-Partnered Physician] - Misael Moore DO [Partnered Physician] - 05/20/16 9:05 am (Pt is to see Dr. Moore for hospital follow-up at the [facility] ) - Diet and Activity Activity: as per physical therapy, increase activity as tolerated Diet: low fat, low cholesterol Interval History: Patient reports doing well today, no concerns/complaints. He is lying flat in bed, no complaints of shortness of breath, denies cough, denies chest pain, denies abdominal pain. He is asking about one feasible for him to go home. Hospital course: Mr. Villarreal is a 85 year old male with prior medical history of paroxysmal atrial fibrillation, hyperlipidemia, pacemaker for sinus dysfunction, and bladder cancer presented to [facility] on 05/11/16 due to shortness of breath, fatigue , and weakness. The has suffered a syncopal episode with fall at the assisted living facility which he resides and was brought into point. He was found to have pneumonia and a NSTEMI. Cardiology was consulted and he was on antibiotics and heparin drip. The heparin drip was stopped after one day due to the finding of fecal occult blood positive stool. He was continued on antibiotics, and anticoagulants were stopped at this time. With the FOBT positive stool, his hemoglobin also fell necessitating transfusion of 1 unit PRBCs. GI was consulted to help assess the significance of his GI bleeding. He underwent an upper endoscopy and colonoscopy and no active bleeding was seen. His hemoglobin has remained stable for 3 days and patient continues to have no concerns/complaints. At this point he is safe/stable for discharge with close follow-up with his PCP and federal judicial law clerk. Biopsy results from upper endoscopy and colonoscopy are pending, will order for outpatient recheck of patient hemoglobin 1 week following discharge. - Time Spent with Patient Total time spent providing and/or coordinating discharge services: - Constitutional Vitals: Temp Pulse Resp BP Pulse Ox 97.4 F L 79 16 112/62 94 L 05/15/16 11:54 05/15/16 11:54 05/15/16 11:54 05/15/16 11:54 05/15/16 11:54 General appearance: Present: cooperative, A&O X 3, pleasant, no acute distress, answers questions appropriately - Head Head exam: Present: normocephalic. Absent: atraumatic (Abrasion over right eyebrow) - Eye Eye exam: Present: conjuntiva pink, sclera anicteric - Neck Neck exam general surgery: Present: supple, trachea midline - Respiratory Respiratory exam: Present: CTAB. Absent: accessory muscle use, rales, rhonchi, wheezes - Cardiovascular Cardiovascular exam: Present: RRR, +S1, +S2, systolic murmur. Absent: diastolic murmur, gallop, rubs - GI/Abdominal GI/Abdominal exam: Present: normal bowel sounds, soft, no peritoneal signs. Absent: distended, tenderness - Extremities Exam Extremities exam: Present: warm, radial pulses palpable and symetrical. Absent : calf tenderness, cyanotic, pedal edema - Neurological Exam Neurological exam: Present: alert, oriented X3, no focal deficits. Absent: facial droop, speech deficit - Skin Skin exam: Present: dry, intact <Dane Dahl - Last Filed: 05/15/16 16:40> Date of Encounter: 05/15/16 - Discharge Diagnosis (1) Pneumonia Status: Acute Qualifiers: Pneumonia type: due to unspecified organism Laterality: unspecified laterality Lung location: unspecified part of lung Qualified Code(s): J18.9 - Pneumonia, unspecified organism (2) NSTEMI (non-ST elevated myocardial infarction) Status: Acute (3) Atrial fibrillation Status: Acute Qualifiers: Atrial fibrillation type: paroxysmal Qualified Code(s): I48.0 - Paroxysmal atrial fibrillation (4) Aortic stenosis, severe Status: Acute (5) GI bleed Status: Suspected Qualifiers: GI bleed type/associated pathology: unspecified gastrointestinal hemorrhage type Qualified Code(s): K92.2 - Gastrointestinal hemorrhage, unspecified (6) Thrombocytopenia Status: Acute Procedures/tests Complete & Pending: Procedures Performed prior 72 hours Category Date Time Status US liver [US] Routine Exams 05/13/16 16:00 Completed Date of admission: 05/11/16 16:44 Primary care physician: Zeyad Costa, Consults: 05/13/16 08:19 Consult to Physical Therapy [CONS] Routine Comment: Evaluate, develop and implement POC OT [Consult to Occupational Therapy] [CONS] Routine Comment: Evaluate, develop and implement POC 05/13/16 09:23 Consult to Gastroenterology [CONS] Routine Consulting Provider: Gastroenterology Lacey Reason for Consult: Concern for jail anticoagulation with a.fib, NSTEMI , and FOB+ (no hematochezia or melena) Call Completed: Yes Hospital course: Mr. Villarreal is a 85 year old male - Time Spent with Patient Total time spent providing and/or coordinating discharge services: - Constitutional Vitals: Temp Pulse Resp BP Pulse Ox 97.4 F L 79 16 112/62 94 L 05/15/16 11:54 05/15/16 11:54 05/15/16 11:54 05/15/16 11:54 05/15/16 11:54 - Attending Attestation I examined this patient and my medical decision-making was reviewed with the GENERAL UTILITY WORKER/PA/Advanced Practice Nurse/Resident Physician. I agree with the documented findings, disposition and treatment plan as described except to the extent set forth below. Patient for discharge today, follow with pcp as outpatient.
--- NOTE | 2016-05-15 13:34 | Physician Discharge Referral ---
<Jah West - Last Filed: 05/15/16 13:32> [facility] Ref[facility] Info [facility] after Transfer: PCP Institutional Level of Care: Skilled - Diagnosis (1) NSTEMI (non-ST elevated myocardial infarction) Priority: Primary Status: Acute (2) Aortic stenosis, severe Priority: Primary Status: Acute (3) Pneumonia Priority: Primary Status: Acute (4) Anemia Priority: Primary Status: Acute (5) GI bleed Priority: Primary Status: Suspected (6) Heart failure Priority: Primary Status: Chronic (7) ANNIE (acute kidney injury) Priority: Primary Status: Acute (8) Atrial fibrillation Priority: Primary Status: Acute (9) Thrombocytopenia Priority: Primary Status: Acute (10) DVT prophylaxis Priority: Secondary Status: Acute - Transfer Medications Prescriptions: Levofloxacin [Levaquin] 500 mg PO Q48H #2 tablet Home Medications: Aspirin [Adult Low Dose Aspirin EC] 1 tab PO DAILY 02/25/15 [History] Cholecalciferol (Vitamin D3) [Vitamin D3] 2,000 unit PO DAILY 02/25/15 [History] Docosahexanoic Acid/Epa [Fish Oil Concentrate Softgel] 1,000 mg PO DAILY [History] Finasteride [Proscar] 5 mg PO DAILY 02/25/15 [History] Flaxseed/Omega3,6,9/Fatty Acid [Flax Seed Oil 1,300 mg Softgel] 1,000 mg PO DAILY 02/25/15 [History] Garlic 25 mg PO BID 02/25/15 [History] Ginkgo Biloba [place] Extract [Ginkgo Biloba] 60 mg PO BID 02/25/15 [History] Multivitamin [Multivitamins] 1 each PO DAILY 02/25/15 [History] Simvastatin [Zocor] 20 mg PO HS 02/25/15 [History] Apixaban [Eliquis] 2.5 mg PO BID 01/15/16 [History] Loratadine [Claritin] 10 mg PO BID #30 tablet 05/08/16 [Rx] Mupirocin 1 appl TP BID 05/11/16 [History] Levofloxacin [Levaquin] 500 mg PO Q48H #2 tablet 05/15/16 [Rx] Allergies/Adverse Reactions: Allergies No Known Allergies Allergy (Verified 01/15/16 11:53) - Respiratory Orders Smoking Cessation: Smoking cessation has been advised. For more information, call the [place] Tobacco Quit Line at 3-227-GGYS-NOW. - Advance Directives Code Status: Full Code - Rehabiliation Orders Rehab Potential: Fair Rehab Orders: Evaluation for Physical Therapy, Evaluation for Occupational Therapy - Diet Orders Cardiac CERTIFICATION: I certify that the transfer of the above named patient to an Extended Care Facility is necessary for the continuing treatment of the diagnosis listed. The above information is true and accurate reflection of patient's current condition. Confidential - Redisclosure prohibited without a patient's written consent. <NabilaDane R - Last Filed: 05/15/16 16:39> - Diagnosis (1) Pneumonia Status: Acute (2) NSTEMI (non-ST elevated myocardial infarction) Status: Acute (3) Atrial fibrillation Status: Acute (4) Aortic stenosis, severe Status: Acute (5) GI bleed Status: Suspected (6) Thrombocytopenia Status: Acute - Respiratory Orders Smoking Cessation: Smoking cessation has been advised. For more information, call the [place] Tobacco Quit Line at 5-206-FKQL-NOW. CERTIFICATION: I certify that the transfer of the above named patient to an Extended Care Facility is necessary for the continuing treatment of the diagnosis listed. The above information is true and accurate reflection of patient's current condition. Confidential - Redisclosure prohibited without a patient's written consent. I examined this patient and my medical decision-making was reviewed with the MOISTURE METER OPERATOR/PA/Advanced Practice Nurse/Resident Physician. I agree with the documented findings, disposition and treatment plan as described except to the extent set forth below.
[2016-05-15] MEDS ORDERED: Levofloxacin 500 MG/100 ML 500 MG/100 ML BAG IVPB SCH (14:00)
== END 2016-05-15 17:15 | DRG 280 ==
LOC: EMEROO 11:22 → SUATTDRO 16:44 → 2NNU 16:44 → 2ANU 05-14 15:46
PROVIDERS: ADMIT Internal Medicine; ATTEND Internal Medicine
PROC: ENDOCBX (2016-05-14 13:00)
PROC: ENDOEBX (2016-05-14 13:00)

== ENCOUNTER 2016-12-20 21:29 | Inpatient (IN) ==
[2016-12-20 22:06] LABS: Basophils # 0.1 K/mcL (0.0-0.2); Basophils % 0.7 %; Eosinophils # 0.1 K/mcL (0.0-0.6); Eosinophils % 1.8 %; Hematocrit 31.6 % (37.5-50.1); Immature Granulocytes % 1.4 % (0-4); Lymphocytes # 0.5 K/mcL (0.6-4.6); Lymphocytes % 6.8 %; Mean Corpuscular HGB Conc 31.6 g/dL (31.6-35.5); Mean Corpuscular Hemoglobin 31.1 pg (28.0-33.3); Mean Corpuscular Volume 98.1 fL (83.0-100.0); Monocytes # 0.9 K/mcL (0.0-1.3); Monocytes % 12.4 %; Neutrophils # 5.4 K/mcL (1.6-8.9); Platelet Count 149 K/mcL (140-400); Red Blood Count 3.22 M/mcL (4.19-5.50); Red Cell Distribution Width 16.4 % (11.5-14.5); Segmented Neutrophils % 76.9 %
[2016-12-20 22:18] LABS: Calcium 9.8 mg/dL (8.6-10.8); Potassium 4.6 mEq/L (3.5-4.5)
[2016-12-20] MEDS ORDERED: Furosemide 40 MG/4 ML VIAL IVP ONE (22:46)
--- NOTE | 2016-12-20 22:55 | Emergency Department Note ---
Disposition Clinical Impression: Congestive heart failure Qualifiers: Congestive heart failure type: unspecified congestive heart failure type Congestive heart failure chronicity: acute Qualified Code(s): I50.9 - Heart failure, unspecified Dyspnea Qualifiers: Dyspnea type: shortness of breath Qualified Code(s): R06.02 - Shortness of breath; R06.00 - Dyspnea, unspecified; R06.01 - Orthopnea Acute respiratory failure Qualifiers: Respiratory failure complication: hypoxia Qualified Code(s): J96.01 - Acute respiratory failure with hypoxia Aortic stenosis Qualifiers: Cardiac valve disease etiology: etiology unspecified Qualified Code(s): I35.0 - Nonrheumatic aortic (valve) stenosis Disposition: Admitted As Inpatient Condition: Fair Referrals: Zeyad Costa MD [Primary Care Provider] - Forms: ED Satisfaction Letter SOB HPI - General Chief Complaint: ED Shortness of Breath/Dyspnea Stated Complaint: MECCA Time Seen by Provider: 12/20/16 21:35 Source: patient, EMS Limitations: no limitations Nursing Notes Reviewed: Yes Vital Signs Reviewed: Yes - History of Present Illness Pt Subjective Complaint: shortness of breath Onset (ago): hour(s) (4) Context: other (Patient lives in assisted living facility called family members because he was short of breath and also he sounded confused on the phone. The patient states his breathing follow-up in about a severity did not call 911 and they drove here private auto. He states that shortness of breath came on fairly abruptly over the last several hours.) Severity: moderate Consistency/Duration: constant Improves with: oxygen, rest Known history of: congestive heart failure Associated symptoms: Reports: polyuria. Denies: chest pain, fever, wheezing Treatment prior to arrival: none Cough present: No - Related Data Home Medications Medication Instructions Recorded Confirmed Aspirin [Adult Low Dose Aspirin EC] 1 tab PO DAILY 02/25/15 05/11/16 Cholecalciferol (Vitamin D3) 2,000 unit PO DAILY 02/25/15 05/11/16 [Vitamin D3] Docosahexanoic Acid/Epa [Fish Oil 1,000 mg PO DAILY 02/25/15 05/11/16 Concentrate Softgel] Finasteride [Proscar] 5 mg PO DAILY 02/25/15 05/11/16 Flaxseed/Omega3,6,9/Fatty Acid 1,000 mg PO DAILY 02/25/15 05/11/16 [Flax Seed Oil 1,300 mg Softgel] Garlic 25 mg PO BID 02/25/15 05/11/16 Ginkgo Biloba [place] Extract [Ginkgo 60 mg PO BID 02/25/15 05/11/16 Biloba] Multivitamin [Multivitamins] 1 each PO DAILY 02/25/15 05/11/16 Simvastatin [Zocor] 20 mg PO HS 02/25/15 05/11/16 Apixaban [Eliquis] 2.5 mg PO BID 01/15/16 05/11/16 Mupirocin 1 appl TP BID 05/11/16 05/11/16 Previous Rx's Medication Instructions Recorded Loratadine [Claritin] 10 mg PO BID #30 tablet 05/08/16 levoFLOXacin [Levaquin] 500 mg PO Q48H #2 tablet 05/15/16 Allergies Allergy/AdvReac Type Severity Reaction Status Date / Time No Known Allergies Allergy Verified 01/15/16 11:53 All systems ED: reviewed and negative except as stated. Constitutional: Reports: weakness. Denies: fever, chills Cardiovascular: Reports: dyspnea on exertion. Denies: chest pain, syncope Genitourinary: Reports: frequency Past Medical History - Past Medical History Source: patient, old records reviewed, obtained from family, nursing notes reviewed Medical history: Reports: non-contributory, hyperlipidemia, myocardial infarction, sudden cardiac Surgical history: Reports: cataract, pacemaker Psychiatric history: Reports: no psych history - Social History Smoking Status: Never smoker Smokeless Tobacco Status: No Alcohol use: Reports: none Drug use: Reports: none Physical Exam - General Limitations: no limitations General appearance: alert, in no apparent distress - Eye Eye exam: Present: normal appearance, PERRL, EOMI - ENT ENT exam: normal exam, normal oropharynx, mucous membranes moist - Neck Neck exam: Present: normal inspection, full ROM, trachea midline - Chest Chest inspection: Present: normal inspection, symmetric chest wall rise - Respiratory Respiratory exam: Present: normal lung sounds bilaterally - Cardiovascular Cardiovascular exam: Present: regular rate, normal rhythm, systolic murmur (3+) , other (2+ bilateral lower extremity edema) - Neurological Exam Neurological exam: Present: alert, CN II-XII intact. Absent: oriented X3 ( Person and place) - Psychiatric Psychiatric exam: Present: normal affect, normal mood - Skin Skin exam: Present: warm, dry, intact, normal color Course Vital Signs Temperature 97.7 F 12/20/16 21:31 Pulse Rate 58 12/20/16 21:31 Respiratory Rate 18 12/20/16 21:31 Blood Pressure 141/67 12/20/16 21:31 O2 Sat by Pulse Oximetry 93 12/20/16 21:31 Temperature 97.7 F 12/20/16 21:31 Pulse Rate 58 12/20/16 21:31 Respiratory Rate 18 12/20/16 21:31 Blood Pressure 141/67 12/20/16 21:31 O2 Sat by Pulse Oximetry 94 12/20/16 21:51 Oxygen Delivery Oxygen Delivery Room Air Shortness of Breath/Dyspnea - MDM Narrative Medical decision making narrative: We will give the patient IV dose of Lasix in the ER he is on Carolyn quests so would not give him aspirin, the bump in troponin is most likely due to the CHF/ AKA I, the patient has nonlabored breathing at rest with nasal cannula oxygen. Omentum the hospitalist service for further management - Medical Records Medical records reviewed: Yes I reviewed the patient's medical records. - Lab Data Lab results reviewed: Yes I reviewed the patient's lab results. Result diagrams: 12/20/16 21:57 12/20/16 21:57 Lab Results 12/20/16 12/20/16 12/20/16 Range/Units 21:57 21:57 21:57 WBC 7.1 (4.3-11.1) K/mcL RBC 3.22 L (4.19-5.50) M/mcL Hgb 10.0 L (12.9-16.9) g/dL Hct 31.6 L (37.5-50.1) % MCV 98.1 (83.0-100.0) fL MCH 31.1 (28.0-33.3) pg MCHC 31.6 (31.6-35.5) g/dL RDW 16.4 H (11.5-14.5) % Plt Count 149 (140-400) K/mcL MPV 13.0 H (9.4-12.4) fL Immature Gran % 1.4 (0-4) % Seg Neutrophils % 76.9 % Lymphocytes % 6.8 % Monocytes % 12.4 % Eosinophils % 1.8 % Basophils % 0.7 % Neutrophils # 5.4 (1.6-8.9) K/mcL Lymphocytes # 0.5 L (0.6-4.6) K/mcL Monocytes # 0.9 (0.0-1.3) K/mcL Eosinophils # 0.1 (0.0-0.6) K/mcL Basophils # 0.1 (0.0-0.2) K/mcL Sodium 144 (136-145) mEq/L Potassium 4.6 H (3.5-4.5) mEq/L Chloride 115 H (98-109) mEq/L Carbon Dioxide 19 (19-29) mEq/L BUN 67 H (8-26) mg/dL Creatinine 2.63 H (0.72-1.25) mg/dL Est GFR ( Amer) 28 L (> 60) Est GFR (Non-Af Amer) 23 L (> 60) BUN/Creatinine Ratio 25 (6-26) Glucose 109 H (70-99) mg/dL Calculated Osmolality 318 H (280-300) Lactic Acid 1.2 (0.5-2.2) mmol/L Calcium 9.8 (8.6-10.8) mg/dL Troponin I (0-0.03) ng/mL B-Natriuretic Peptide (0-100) pg/mL 12/20/16 12/20/16 Range/Units 21:57 21:57 WBC (4.3-11.1) K/mcL RBC (4.19-5.50) M/mcL Hgb (12.9-16.9) g/dL Hct (37.5-50.1) % MCV (83.0-100.0) fL MCH (28.0-33.3) pg MCHC (31.6-35.5) g/dL RDW (11.5-14.5) % Plt Count (140-400) K/mcL MPV (9.4-12.4) fL Immature Gran % (0-4) % Seg Neutrophils % % Lymphocytes % % Monocytes % % Eosinophils % % Basophils % % Neutrophils # (1.6-8.9) K/mcL Lymphocytes # (0.6-4.6) K/mcL Monocytes # (0.0-1.3) K/mcL Eosinophils # (0.0-0.6) K/mcL Basophils # (0.0-0.2) K/mcL Sodium (136-145) mEq/L Potassium (3.5-4.5) mEq/L Chloride (98-109) mEq/L Carbon Dioxide (19-29) mEq/L BUN (8-26) mg/dL Creatinine (0.72-1.25) mg/dL Est GFR ( Amer) (> 60) Est GFR (Non-Af Amer) (> 60) BUN/Creatinine Ratio (6-26) Glucose (70-99) mg/dL Calculated Osmolality (280-300) Lactic Acid (0.5-2.2) mmol/L Calcium (8.6-10.8) mg/dL Troponin I 0.11 H* (0-0.03) ng/mL B-Natriuretic Peptide > 5000 H (0-100) pg/mL - Radiology Data Radiology results reviewed: Yes I reviewed the patient's radiology results. - EKG Data EKG attestation: Yes I reviewed and interpreted this EKG. Rate: Reports: normal Rhythm: Reports: other (Paced rhythm) Critical Care Time Critical Care Time: Yes Total Critical Care Time: 35 Attestation: Critical care performed: Time is exclusive of separately billable procedures. Time includes: direct patient care, patient reassessment, coordination of patient care, interpretation of data (laboratory data, radiology data, and respiratory data), review of patient's medical records, medical consultation and documentation of patient care. Procedures included in critical care time: Procedures excluded from critical care time:
[2016-12-20] MEDS ORDERED: Aspirin 81 MG TAB.CHEW PO ONE (22:58)
[2016-12-20 23:24] LABS: ABG Base Excess -4.5 mEq/L (-2.0 to 3.0); ABG HCO3 20.2 mEQ/L (21-27); ABG Oxygen Saturation 93 % (95-98); ABG PCO2 35 mmHg (35-45); ABG PH 7.37 pH Units (7.32-7.45); ABG PO2 69 mmHg (85-104); ABG TCO2 21.3 mEq/L (20-26); Blood Gas FiO2 28 %
--- NOTE | 2016-12-20 23:33 | Internal Med History&Physical ---
Date of Encounter: 12/20/16 Time of Encounter: 23:30 Assessment and Plan (1) Aortic stenosis, severe Current visit: No Status: Acute consult cards to assist with medication management. Dtr reported patient declined TAVR after being offered (contrary to patient hx). (2) Congestive heart failure Current visit: Yes Status: Acute CXR with pulm edema. 2/2 to severe . will trial prn lasix - received lasix once in the ED. I/Os, Schedule another dose in the a.m - prn lasxi for now Qualifiers: Congestive heart failure type: unspecified congestive heart failure type Congestive heart failure chronicity: acute Qualified Code(s): I50.9 - Heart failure, unspecified (3) CKD (chronic kidney disease) Current visit: Yes Status: Acute trend Cr on diuretics. Suspect Cr will be rate limiting for diuretics. No great solution. Avoid nephrotoxins. Consult renal to follow Qualifiers: Chronic kidney disease stage: stage 3 (moderate) Qualified Code(s): N18.3 - Chronic kidney disease, stage 3 (moderate) (4) Atrial fibrillation Current visit: No Status: Acute hx of AFib on eliguis - on reduced dose at home due to CKD. Will monitor renal function, if worsen, may need to discontinue due to risk of bleeding with poor renal clearance Qualifiers: Atrial fibrillation type: paroxysmal Qualified Code(s): I48.0 - Paroxysmal atrial fibrillation Internal Medicine - H&P: HPI Chief complaint: SOB History of present illness: Mr. Villarreal is a 86 year old male with hx of , syncope s/p pacer 2016 who presents with acute on chronic SOB - found to be in acute pulm edema. At baseline, he lives in independent living but due to declining general condition , he is pending placement to a assisted living. He reports developing acute SOB this evening, better at rest, worse with exertion. He has a significant cardiac hx of -and sees Dr Moore and had been referred to Dr Vergara at [facility] for TAVR procedure. His dtrs at bedside reported that there were concerns over his CKD but patient ultimately declined procedure. Past Med Surg Social Fam HX - Past Medical History Medical history: non-contributory, hyperlipidemia, myocardial infarction, sudden cardiac Psychiatric history: no psych history - Past Surgical History Surgical History: cataract, pacemaker - Social History Smoking Status: Never smoker Smokeless Tobacco Status: No Alcohol use: none Drug use: none - Family History Mother Adopted: No Family Member Ethnicity: Non- Living Status: Hx Family Cardiac Disorders: No Hx Family Respiratory Disorders: No Hx Family Cancer: Yes Hx Family GI Disorders: Yes (bleeding ulcers, cancer) Hx Family Endocrine Disorder: No Hx Family Neuromuscular Disorders: No Hx Family Neurologic Disorders: No Hx Family HEENT Disorders: No Hx Family Autoimmune Disorders: No Internal Medicine - H&P: Meds Aspirin [Adult Low Dose Aspirin EC] 1 tab PO DAILY 02/25/15 [History] Cholecalciferol (Vitamin D3) [Vitamin D3] 2,000 unit PO DAILY 02/25/15 [History] Docosahexanoic Acid/Epa [Fish Oil Concentrate Softgel] 1,000 mg PO DAILY [History] Finasteride [Proscar] 5 mg PO DAILY 02/25/15 [History] Flaxseed/Omega3,6,9/Fatty Acid [Flax Seed Oil 1,300 mg Softgel] 1,000 mg PO DAILY 02/25/15 [History] Garlic 25 mg PO BID 02/25/15 [History] Ginkgo Biloba [place] Extract [Ginkgo Biloba] 60 mg PO BID 02/25/15 [History] Multivitamin [Multivitamins] 1 each PO DAILY 02/25/15 [History] Simvastatin [Zocor] 20 mg PO HS 02/25/15 [History] Apixaban [Eliquis] 2.5 mg PO BID 01/15/16 [History] Loratadine [Claritin] 10 mg PO BID #30 tablet 05/08/16 [Rx] Mupirocin 1 appl TP BID 05/11/16 [History] levoFLOXacin [Levaquin] 500 mg PO Q48H #2 tablet 05/15/16 [Rx] Allergies No Known Allergies Allergy (Verified 01/15/16 11:53) All Systems PM: A 10-system review of systems was performed and is negative for pertinent findings except as documented above in the HPI. Review of systems: ROS 14 point review of systems reviewed as best as possible given presentation. Pertinent positive or negative as per HPI or otherwise reviewed as negative - Constitutional Vitals: Temp Pulse Resp BP Pulse Ox 97.7 F 58 18 142/76 94 12/20/16 21:31 08/13/17 21:31 12/20/16 23:23 12/20/16 23:23 12/20/16 21:51 Exam: General - AAO x 3 Psych - Appropriate affect/speech. No agitation Eyes - TINA. Eye lids intact. No scleral icterus Heart - Sinus. RRR. S1 and S2 present. No added HS/murmurs appreciated. No elevated JVD appreciated. Posterior calf swellings Lung - Adequate air entry b/l, bibasal crackles no wheezes appreciated GI - Soft, non-tender. No hepatosplenomegaly/ascites. BS+ - No CVA/suprapubic tenderness or palpable bladder distension Skin - Intact. No rash/petechiae/ecchymosis. Warm extremities MSK - Joints with normal ROM. No joint swellings Internal Med - H&P Results - Labs CBC & Chem 7: 12/20/16 21:57 12/20/16 21:57 - ABG Interpretation ABG results: 12/20/16 23:10 ABG pH 7.37 ABG pCO2 35 ABG pO2 69 L ABG HCO3 20.2 L ABG Total CO2 21.3 ABG O2 Saturation 93 L ABG Base Excess -4.5 L
[2016-12-21 00:46] LABS: Bilirubin,Urine Negative (Negative); Blood,Urine Small (Negative); Clarity,Urine Clear (Clear); Color,Urine Yellow (Yellow); Glucose,Urine (UA) Normal (Normal); Ketones,Urine Negative (Negative); Leukocyte Esterase,Urine Negative (Negative); Nitrite,Urine Negative (Negative); Protein,Urine Trace mg/dL (Neg-Trace); Specific Gravity,Urine 1.014 (1.010-1.025); Urobilinogen,Urine Normal (Normal)
[2016-12-21 00:48] LABS: Bacteria,Urine None Seen per hpf (None-Few); Hyaline Casts,Urine None Seen per lpf (None-Few); Squamous Epithelial Cell,Urine Moderate per lpf (None-Few); WBC,Urine 0-3 per hpf (0-3)
[2016-12-21 04:19] LABS: Albumin 3.5 g/dL (3.5-5.0); Albumin/Globulin Ratio 0.9 (1.1-2.2); Bilirubin,Total 0.6 mg/dL (0.2-1.2); Calcium 10.1 mg/dL (8.6-10.8); Globulin 3.7 g/dL (2.4-3.5); Potassium 4.8 mEq/L (3.5-4.5); Total Protein 7.2 g/dL (6.0-8.3)
[2016-12-21 06:09] LABS: Hematocrit 31.9 % (37.5-50.1); Hemoglobin 10.1 g/dL (12.9-16.9); Mean Corpuscular HGB Conc 31.7 g/dL (31.6-35.5); Mean Corpuscular Hemoglobin 30.7 pg (28.0-33.3); Mean Platelet Volume 12.9 fL (9.4-12.4); Platelet Count 162 K/mcL (140-400); Red Blood Count 3.29 M/mcL (4.19-5.50); Red Cell Distribution Width 16.2 % (11.5-14.5)
[2016-12-21] MEDS: Aspirin Enteric Coated 81 MG Tablet PO SCH (08:50)
[2016-12-21] MEDS: APIXABAN 2.5 MG TABLET PO SCH ×2 (08:50→20:55)
[2016-12-21] MEDS: Finasteride 5 MG TABLET PO SCH (08:50)
--- NOTE | 2016-12-21 09:22 | Internal Med Progress Note ---
<Cornelius Pete Yennifer - Last Filed: 12/21/16 14:39> Date of Encounter: 12/21/16 Time of Encounter: 09:18 - Assessment and plan (1) Aortic stenosis, severe Current Visit: No Status: Acute Assessment and plan: Presenting with worsening shortness of breath with Hx of Previously referred for TAVR procedure at [facility] with Dr. Vergara - but ultimately declined the procedure per daughter Cardiology consult - appreciated recommendations (2) Congestive heart failure Current Visit: Yes Status: Acute Assessment and plan: CXR with pulmonary edema 2/2 to severe . LE edema present. Lasix PRN - once in ED, one scheduled for this AM Monitor I&Os - 500ml out this AM Trop: 0.11, 0.13, 0.13 - likely secondary to renal dysfunction and - No chest pain, No ECG changes from previous Qualifiers: Congestive heart failure type: unspecified congestive heart failure type Congestive heart failure chronicity: acute Qualified Code(s): I50.9 - Heart failure, unspecified (3) Atrial fibrillation Current Visit: No Status: Acute Assessment and plan: Hx Afib on Eliquis - reduced dose at home due to CKD Monitor renal function - Cr 2.67 (2.0 at baseline) Qualifiers: Atrial fibrillation type: unspecified Qualified Code(s): I48.91 - Unspecified atrial fibrillation (4) CKD (chronic kidney disease) Current Visit: Yes Status: Acute Assessment and plan: Monitor Cr on diuretics Avoid nephrotoxins Nephrology consult - appreciate recommendations Qualifiers: Chronic kidney disease stage: stage 3 (moderate) Qualified Code(s): N18.3 - Chronic kidney disease, stage 3 (moderate) - Subjective Interval history: Patient seen and examined. States he is feeling well with no complaints. Reports his breathing has improved since coming into the hospital. Admits to LE edema that is chronic. Denies syncope, light-headedness, chest pain, dyspnea, cough, N/V/D, dysuria, or leg pain. - Constitutional Vitals: Temp Pulse Resp BP Pulse Ox 98.1 F 59 16 143/84 96 12/21/16 07:35 12/21/16 07:35 12/21/16 07:35 12/21/16 07:35 12/21/16 07:35 General appearance: Present: no acute distress, answers questions appropriately - Head Head exam: Present: atraumatic, normocephalic - Eye Eye exam: Present: sclera anicteric - ENT ENT exam: Present: mucous membranes moist - Respiratory Respiratory exam: Present: decreased breath sounds. Absent: rales, rhonchi, wheezes - Cardiovascular Cardiovascular exam: Present: RRR, +S1, +S2, systolic murmur. Absent: diastolic murmur - GI/Abdominal GI/Abdominal exam: Present: normal bowel sounds, soft. Absent: distended, rigid , tenderness - Extremities Exam Extremities exam: Present: pedal edema, warm, radial pulses palpable and symmetrical. Absent: joint swelling, tenderness - Neurological Exam Neurological exam: Present: alert, CN II-XII intact, no focal deficits Internal Medicine: Result - Labs CBC & Chem 7: 12/21/16 03:53 12/21/16 03:53 Labs: Short CBC 12/21/16 Range/Units 03:53 WBC 7.2 (4.3-11.1) K/mcL Hgb 10.1 L (12.9-16.9) g/dL Hct 31.9 L (37.5-50.1) % Plt Count 162 (140-400) K/mcL BMP 12/21/16 03:53 Sodium 145 Potassium 4.8 H Chloride 113 H Carbon Dioxide 23 BUN 66 H Creatinine 2.67 H Glucose 105 H Calcium 10.1 Cardiac Enzymes 12/21/16 Range/Units 03:53 Troponin I 0.13 H* (0-0.03) ng/mL Liver Function 12/21/16 Range/Units 03:53 Total Bilirubin 0.6 (0.2-1.2) mg/dL AST 40 H (5-34) Units/L ALT 43 (0-55) Units/L Alkaline Phosphatase 117 (38-126) Units/L Albumin 3.5 (3.5-5.0) g/dL Urine 12/21/16 Range/Units 00:35 Urine Color Yellow (Yellow) Urine Clarity Clear (Clear) Urine pH 6.0 (5.0-8.0) pH Units Ur Specific [place] 1.014 (1.010-1.025) Urine Protein Trace (Neg-Trace) mg/dL Urine Glucose (UA) Normal (Normal) mg/dL - ABG Interpretation ABG results: ABG ABG pH 7.37 pH Units (7.32-7.45) 12/20/16 23:10 ABG pCO2 35 mmHg (35-45) 12/20/16 23:10 ABG pO2 69 mmHg (85-104) L 12/20/16 23:10 ABG O2 Saturation 93 % (95-98) L 12/20/16 23:10 - VTE Reasons for not Prescribing Prophylaxis: Not indicated-Anticoagulated or INR therapeutic Consult Discharge Plan - Plan Referrals: Zeyad Costa MD [Primary Care Provider] - <Tj Paredes - Last Filed: 12/21/16 16:48> Date of Encounter: 12/21/16 - Assessment and plan (1) Acute respiratory failure Current Visit: Yes Status: Resolved Qualifiers: Respiratory failure complication: hypoxia Qualified Code(s): J96.01 - Acute respiratory failure with hypoxia (2) Congestive heart failure Current Visit: Yes Status: Acute Qualifiers: Congestive heart failure type: diastolic Congestive heart failure chronicity: acute on chronic Qualified Code(s): I50.33 - Acute on chronic diastolic (congestive) heart failure (3) Aortic stenosis Current Visit: Yes Status: Acute Qualifiers: Cardiac valve disease etiology: etiology unspecified Qualified Code(s): I35.0 - Nonrheumatic aortic (valve) stenosis (4) CKD (chronic kidney disease) Current Visit: Yes Status: Acute Qualifiers: Chronic kidney disease stage: stage 3 (moderate) Qualified Code(s): N18.3 - Chronic kidney disease, stage 3 (moderate) (5) Anemia Current Visit: No Status: Acute Qualifiers: Anemia type: other cause Other causes of anemia: chronic disease, other Qualified Code(s): D63.8 - Anemia in other chronic diseases classified elsewhere - Constitutional Vitals: Temp Pulse Resp BP Pulse Ox 97.4 F L 60 16 136/72 96 12/21/16 11:49 12/21/16 11:49 12/21/16 11:49 12/21/16 11:49 12/21/16 07:35 Internal Medicine: Result - Labs CBC & Chem 7: 12/21/16 03:53 12/21/16 03:53 Labs: Short CBC 12/21/16 Range/Units 03:53 WBC 7.2 (4.3-11.1) K/mcL Hgb 10.1 L (12.9-16.9) g/dL Hct 31.9 L (37.5-50.1) % Plt Count 162 (140-400) K/mcL BMP 12/21/16 03:53 Sodium 145 Potassium 4.8 H Chloride 113 H Carbon Dioxide 23 BUN 66 H Creatinine 2.67 H Glucose 105 H Calcium 10.1 Cardiac Enzymes 12/21/16 12/21/16 Range/Units 03:53 09:23 Troponin I 0.13 H* 0.13 H* (0-0.03) ng/mL Liver Function 12/21/16 Range/Units 03:53 Total Bilirubin 0.6 (0.2-1.2) mg/dL AST 40 H (5-34) Units/L ALT 43 (0-55) Units/L Alkaline Phosphatase 117 (38-126) Units/L Albumin 3.5 (3.5-5.0) g/dL Urine 12/21/16 Range/Units 00:35 Urine Color Yellow (Yellow) Urine Clarity Clear (Clear) Urine pH 6.0 (5.0-8.0) pH Units Ur Specific [place] 1.014 (1.010-1.025) Urine Protein Trace (Neg-Trace) mg/dL Urine Glucose (UA) Normal (Normal) mg/dL - ABG Interpretation ABG results: ABG ABG pH 7.37 pH Units (7.32-7.45) 12/20/16 23:10 ABG pCO2 35 mmHg (35-45) 12/20/16 23:10 ABG pO2 69 mmHg (85-104) L 12/20/16 23:10 ABG O2 Saturation 93 % (95-98) L 12/20/16 23:10 - Attending Attestation I examined this patient and my medical decision-making was reviewed with the Resident Physician on 12/21/16. I agree with the documented findings, disposition and treatment plan as described except to the extent set forth below. Mr. Villarreal is currently admitted for acute CHF associated with severe . He remains moderate to high risk due to potential for worsening cardiac status. He is now DNR per cardiology service. Mr. Villarreal feels OK currently. He initially was willing to go to [facility] but now does not want to go. He is now DNRCC. Palliative care to see him. No fever or chills. Breathing OK at this time. Exam Alert. Comfortable in bed Mucus membranes dry Heart reg with murmur Lungs with rales I/P 1. Acute CHF (diastolic) 2. Severe Palliative to see Further diagnoses and plan as above.
--- NOTE | 2016-12-21 09:57 | Cardiology Consult Note ---
<Skye Figueroa - Last Filed: 12/21/16 12:58> Date of Encounter: 12/21/16 Time of Encounter: 09:30 Assessment and Plan (1) Aortic stenosis, severe Status: Acute Per cardiology: -Known severe . -Echo at [facility] 05/2016 with LVEF 50%, mild concentric LVH, moderate diastolic dysfunction, normal RV size and function, severely calcified aortic valve, severe/critical , peak velocity 4.55m/s, mean gradiant 46mmHg, mild AR, mild MR, mild TR, mild FL, mild pulmonary hypertension. -Patient states mildly worse shortness of breath with excertion, however states this is not far from baseline. -Pedal edema noted, however states is his baseline. Denies worsening edema. -Weight yesterday 67.4 kg, weight May 2016 68kg. -Was given lasix IV per primary service, however stopped due to renal function. -Net negative 500ml since admission. -CHest x-ray with pulmonary edema. -BNP >5000. -Patient follows with , at [facility], for severe . Patient has refused TAVR due to his concerns regarding renal function. Patient states he has a plan in place with and was supposed to follow up with him today. Patient states he may consider TAVR if his functional status declines, however he states he would discuss with at follow up appointment. 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 -Agree with nephrology input and recommendations to assist with diuresis. -Per discussion with , would recommend inpateint transfer to [facility]. No family at bedside. Patient asked if we could stop back by and discuss with his daughters regarding inpatient transfer. Will stop back by. (2) Elevated troponin Status: Acute Per cardiology: -Troponins 0.13, 0.11, 0.13. -Troponins flat and adynamic in the setting of severe and ANNIE. -Patient denies chest pain. -ECG with paced rhythm, bundle branch block noted, however unchanged from previous. -on asa, statin, beta samaria. -Of note, NSTEMI noted May 2016 with troponin peak of 2.67. Patient was recommended for medical management due to renal function. Patient has since declined further invasive work up due to renal function. -Do not suspect NSTEMI, suspect demand ischemia related to ANNIE. No cardiac rehab warranted at this time. (3) ANNIE (acute kidney injury) Status: Acute Per cardiology: -KNown CKD. -Baseline creatinine 1.8-2.2. -Creatinine today 2.67. -Nephrology has been consulted. -Management per primary and nephrology services. (4) Atrial fibrillation Status: Acute Per cardiology: -Known paroxysmal atrial fibrillation. -On beta samaria. -No atrial fibrillation appreciated overnight per telemetry. -[id number] 4 (age, CHF history, HTN). On eliquis, adjusted to 2.5mg BID due to age and renal function. -Average HR 64 overnight. Qualifiers: Atrial fibrillation type: paroxysmal Qualified Code(s): I48.0 - Paroxysmal atrial fibrillation Discussion w patient/family: The assessment and plan as outlined above was discussed with the patient who expressed understanding and agreement. All questions were answered. Thank you for involving us in the care of your patient. Please call with any questions. Discussed and reviewed with . History of Present Illness Consult date: 12/20/16 Requesting physician: Jerald Ivy Consult reason: critical aortic stenosis, worsening shortness of breath Chief complaint: shortness of breath History of present illness: Mr. Villarreal is a 86 year old male with a relevant past medical history of pacemaker 2015 ([place]), NSTEMI, severe aortic stenosis, CKD, atrial fibrillation. Patient presents to [facility] with complaints of worsening shortness of breath and confusion. Patient states he was more worried about the confusion. Patient states he was having trouble focusing and it was concerning for him. Patient states he did have some worsening shortness of breath, however states it was only mildly worse than his baseline. Patient reports has had shortness of breath with excertion for the past 6 years. Patient denies worsening edema. Patient states he has edema, however it is chronic. Patient states he was seen by at [facility] for evaluation for TAVR. Patient states was recommended for TAVR, however patient declined due to his concern regarding renal function. Patient states he was actually scheduled with today for follow up. Patient states his daughter is re-scheduling appointment with . Of note, patient reports pacemaker checks are now being performed at [facility]. Patient denies chest pain. Patient states fatigue has actually improved over the past couple of weeks. Past Med Surg Social Fam HX - Past Medical History Attestation: Yes The following information was validated with the patient. Source: patient, old records reviewed Medical history: non-contributory, atrial fibrillation, hyperlipidemia, myocardial infarction, sudden cardiac Psychiatric history: no psych history - Past Surgical History Surgical History: cataract, pacemaker - Social History Smoking Status: Never smoker Smokeless Tobacco Status: No Alcohol use: none Drug use: none - Family History Mother Adopted: No Family Member Ethnicity: Non- Living Status: Hx Family Cardiac Disorders: No Hx Family Respiratory Disorders: No Hx Family Cancer: Yes Hx Family GI Disorders: Yes (bleeding ulcers, cancer) Hx Family Endocrine Disorder: No Hx Family Neuromuscular Disorders: No Hx Family Neurologic Disorders: No Hx Family HEENT Disorders: No Hx Family Autoimmune Disorders: No Medications and Allergies Aspirin [Adult Low Dose Aspirin EC] 1 tab PO DAILY 02/25/15 [History] Cholecalciferol (Vitamin D3) [Vitamin D3] 2,000 unit PO DAILY 02/25/15 [History] Finasteride [Proscar] 5 mg PO DAILY 02/25/15 [History] Multivitamin [Multivitamins] 1 each PO DAILY 02/25/15 [History] Simvastatin [Zocor] 20 mg PO HS 02/25/15 [History] Apixaban [Eliquis] 2.5 mg PO BID 01/15/16 [History] Loratadine [Claritin] 10 mg PO BID #30 tablet 05/08/16 [Rx] Latanoprost [Xalatan] 1 drop OP DAILY 12/21/16 [History] Metoprolol [Lopressor] 25 mg PO BID 12/21/16 [History] Omeprazole [PriLOSEC] 20 mg PO DAILY 12/21/16 [History] Sucralfate [Carafate] 1 gm PO BID 12/21/16 [History] No Known Allergies Allergy (Verified 01/15/16 11:53) All Systems Review: A 10-system review of systems was performed and is negative for pertinent findings except as documented above in the HPI. - Cardiovascular Cardiovascular: as per HPI, dyspnea on exertion, leg edema Physical Examination Vital Signs, Last 4 Hours Temp Pulse Resp BP Pulse Ox 12/21/16 07:35 98.1 F 59 16 143/84 96 General: Conversant, No Apparent Distress HEENT: Atraumatic, Normocephaly, Mucus Membranes Moist Neck: No JVD, Normal carotid pulses Cardiac: Reg Rate and Rhythm, Normal S1 and S2, Other (Diastolic murmur noted. ) Lungs: Normal Breath Sounds, No Wheeze, Rales, Rhonchi Neuro: Alert and responsive, No focal deficits noted Abdomen: Soft, Non-Tender Skin: No rashes noted on visualized skin Musculoskeletal: No Chest Wall Tenderness Extremities: No Clubbing, No Cyanosis, Normal Pulses, Other (1+ bilateral lower extremity pitting edema. ) Results 12/21/16 03:53 12/21/16 03:53 Lab Results Impressions Chest X-Ray 12/20/16 21:49 IMPRESSION: Findings most compatible with pulmonary edema. Correlate with clinical evidence of pneumonia. D/ / Won Hernandes MD / Won Hernandes MD Interpreting Provider: Won Hernandes MD Active Medications Apixaban (Eliquis) 2.5 mg PO BID [facility] Stop: 06/22/17 09:01 Last Admin: 12/21/16 08:50 Dose: 2.5 mg Aspirin (Aspirin Ec) 81 mg PO DAILY ANDRE Stop: 06/22/17 09:01 Last Admin: 12/21/16 08:50 Dose: 81 mg Finasteride (Proscar) 5 mg PO DAILY ANDRE PRN Reason: Protocol Stop: 06/22/17 09:01 Last Admin: 12/21/16 08:50 Dose: 5 mg Furosemide (Lasix) 20 mg IVP ONCE ONE Stop: 12/21/16 11:01 Metoprolol Tartrate (Lopressor) 25 mg PO BID ANDRE Stop: 06/22/17 09:01 Last Admin: 12/21/16 08:50 Dose: 25 mg Omeprazole (Prilosec) 20 mg PO DAILY@0630 ANDRE PRN Reason: Protocol Stop: 06/22/17 06:31 Last Admin: 12/21/16 06:23 Dose: 20 mg Simvastatin (Zocor) 20 mg PO HS ANDRE PRN Reason: Protocol Stop: 06/21/17 23:46 Last Admin: 12/21/16 01:30 Dose: Not Given Laboratory Tests 05/26/16 05/29/16 12/20/16 04:35 04:15 21:57 Hgb Creatinine 1.80 H 2.17 H 2.63 H Troponin I B-Natriuretic Peptide 12/20/16 12/20/16 12/21/16 21:57 21:57 03:53 Hgb Creatinine Troponin I 0.11 H* 0.13 H* B-Natriuretic Peptide > 5000 H 12/21/16 12/21/16 12/21/16 03:53 03:53 09:23 Hgb 10.1 L Creatinine 2.67 H Troponin I 0.13 H* B-Natriuretic Peptide - Imaging and Cardiology Chest Xray: report reviewed Echo: report reviewed - EKG Interpretation EKG results cardiology: personally reviewed (ECG with paced rhythm, HR 61, right bundle branch block noted.), other (Telemetry reviewed with average HR previous 12 hours noted to be 64, paced rhythm.) Consult Discharge Plan - Plan Additional Instructions: Follow-instructions of physical therapy Be careful when you are walking to not fall Follow-up with your primary care provider Referrals: Zeyad Costa MD [Primary Care Provider] - 01/04/17 3:30 pm (Dr. Costa is out of office next week. Pt cannot get into him until 01/04/17 due to this. ) <Jah Sheriff - Last Filed: 12/24/16 10:48> Date of Encounter: 12/24/16 Time of Encounter: 14:40 Assessment and Plan Discussion w patient/family: The assessment and plan as outlined above was discussed with the patient and/or family members who expressed understanding and agreement. All questions were answered. Thank you for involving us in the care of your patient. Please call with any questions. History of Present Illness History of present illness: Mr. Villarreal is a 86 year old male All Systems Review: A 10-system review of systems was performed and is negative for pertinent findings except as documented above in the HPI. Results 12/21/16 03:53 12/21/16 03:53 - Attending Attestation Pt seen and examined, chart reviewed, old records reviewed, essentially agree with above, my evaluation as below: CC: Shortness of breath Pt reports new worsening of shortness of breath over last several weeks, slow progression of decreased exercise tolerance from previous baseline. He has a six year history of shortness of breath with exertion, however is now experiencing SOB at rest. He admits to conversational dyspnea over last week. He also notes new episodes of confusion, come and go spontaneously. associated with shortness of breath at rest. Episodes last minutes to hours. Denies focal weakness, slurred speech, weakness, parathesisas and anesthisias. He also reports increasing lower extremity edema, chronic bilateral lower extremtty swelling from ankles to mid calf in the evening, was resolving with leg elevation overnight, now not resolving. He has known critical , TAVR evlauation was discussed with pt starting over a year ago, follows with Dr. Leonardo Vergara at [facility] [place]. He has declined invasive strategy, including diagnostic LHC due to renal insufficientcy, very worried diagnostic imaging would compromise renal function enough to need dialysis. IMP/Plan 1. Aortic Stenosis: Critical, symptomatic, worsening heart failure and exertional dypnea. Discussed decreased cardiac reserve, very poor prognosis without intervention for . mortality as high as 50% in the next year, risks and benefits of LHC/RHC and completing evaluation for TAVR. Patient will discuss with familyu when they arrive later this afternoon. 2. Elevated Troponin: Baseline elevation, no evidence of acute ischemia by EKG criteria, however cannot rule out CAD, recommend LHC/poss, pt will consider, no point in non-invasive testing for ischemia if pt refuses to consider intervention. 3. Acute on chronic kidney injury, Creat up to 2.67 from baseline 1.8, multifactorial, suspect large component is decreased perfusion due to decreased cardiac output with critical . 4. Paroxysmal A fib, now in NSR with frequent PACs, PVCs, continue current tx, may reconsider antiarrhythmic tx if pt elects invasive strategy. If pt chooses invasive strategy, recommend transfer to [facility] [place] where TAVR would be performed, to care of Dr. Leonardo Vergara. Will follow pending pt and familiy discussions.
[2016-12-21] MEDS ORDERED: Furosemide 20 MG/2 ML VIAL IVP ONE ×2 (11:00→11:30)
--- NOTE | 2016-12-21 11:59 | Nephrology Consult Note ---
Date of Encounter: 12/21/16 Time of Encounter: 11:55 Assessment and Plan (1) CKD (chronic kidney disease) stage 4, GFR 15-29 ml/min Status: Acute Likely stage 3/4 CKD in the setting of advancing age and CHF with diuresis Discussed at great length initiating CKD workup which would be non invasisve which patient is open to: will obtain US of kidneys Will check SPEP and UPEP Will check urine for proteinuria Will check ROXANE and complements Will also check PTH and vitamin D levels as well (2) Congestive heart failure Status: Acute Continue diuresis with intermittent lasix iv Strict I/Os Discussed in great details adherence to low sodium diet Fluid restriction advised Qualifiers: Congestive heart failure type: diastolic Congestive heart failure chronicity: acute on chronic Qualified Code(s): I50.33 - Acute on chronic diastolic (congestive) heart failure History of Present Illness - Reason for Consult Consult date: 12/21/16 Chronic Kidney Disease Requesting physician: Jerald Ivy - History of Present Illness 86 y o male with PMH of CAD s/p HI, severe refusing intervention due to CKD, Afib and stage 4 CKD admitted with progressive SOB and being treated for CHF execarbation. Renal consulted for help with diuresis given por renal fxn. Patient seen and examined with family at bedside. He reports being aware of renal dysfunction and does not want ant CLOSER ON if needed and as a result has refused most interventions that would worse renal fxn including any major cardiac work. He has apparently refused renal workup in the past as well to find out more about his CKD. He reports feeling better already since he was admitted with less SOB and LE edema as well.SCr at admission noted at 2.63, GFR 23 but previously as of janau GFR as low as 20s and as high as 30s. Past Med Surg Social Fam HX - Past Medical History Medical history: non-contributory, atrial fibrillation, hyperlipidemia, myocardial infarction, sudden cardiac Psychiatric history: no psych history - Past Surgical History Surgical History: cataract, pacemaker - Social History Smoking Status: Never smoker Smokeless Tobacco Status: No Alcohol use: none Drug use: none - Family History Mother Adopted: No Family Member Ethnicity: Non- Living Status: Hx Family Cardiac Disorders: No Hx Family Respiratory Disorders: No Hx Family Cancer: Yes Hx Family GI Disorders: Yes (bleeding ulcers, cancer) Hx Family Endocrine Disorder: No Hx Family Neuromuscular Disorders: No Hx Family Neurologic Disorders: No Hx Family HEENT Disorders: No Hx Family Autoimmune Disorders: No Medications and Allergies Aspirin [Adult Low Dose Aspirin EC] 1 tab PO DAILY 02/25/15 [History] Cholecalciferol (Vitamin D3) [Vitamin D3] 2,000 unit PO DAILY 02/25/15 [History] Finasteride [Proscar] 5 mg PO DAILY 02/25/15 [History] Multivitamin [Multivitamins] 1 each PO DAILY 02/25/15 [History] Simvastatin [Zocor] 20 mg PO HS 02/25/15 [History] Apixaban [Eliquis] 2.5 mg PO BID 01/15/16 [History] Loratadine [Claritin] 10 mg PO BID #30 tablet 05/08/16 [Rx] Latanoprost [Xalatan] 1 drop OP DAILY 12/21/16 [History] Metoprolol [Lopressor] 25 mg PO BID 12/21/16 [History] Omeprazole [PriLOSEC] 20 mg PO DAILY 12/21/16 [History] Sucralfate [Carafate] 1 gm PO BID 12/21/16 [History] 3 Allergy/AdvReac Type Severity Reaction Status Date / Time No Known Allergies Allergy Verified 01/15/16 11:53 Review of Systems All Systems: reviewed and no additional remarkable complaints except as stated ( 10 systems reviewed as noted in HPI) Exam - Vital Signs Vital signs: Initial Vital Signs Temp Pulse Resp BP Pulse Ox 97.7 F 58 18 141/67 93 12/20/16 21:31 12/20/16 21:31 12/20/16 21:31 12/20/16 21:31 12/20/16 21:31 Vital Signs - Last 8 Hours Temp Pulse Resp BP Pulse Ox 12/21/16 11:49 97.4 F L 60 16 136/72 12/21/16 07:35 98.1 F 59 16 143/84 96 12/21/16 04:05 97.7 F 61 16 164/76 95 Intake and Output 12/20/16 12/21/16 12/21/16 23:59 07:59 15:59 Intake Total 120 / 120 Output Total 500 / 500 500 / 500 Balance -500 / -500 -380 / -380 Intake: Oral 120 / 120 Output: Urine 500 / 500 500 / 500 Other: Meal Breakfast Percent of Meal Consumed 75% # Voids 2 - General Appearance General appearance: chronically ill, frail EENT: ATNC, mucous membranes moist Neck: no JVD, supple Additional Comments: decreased BS bases bilat Cardiology: edema (LE bilat), normal S1, normal S2 Gastrointestinal: no tenderness, no guarding Integumentary: warm and dry Neurologic: no focal deficit Musculoskeletal: no deformities Psychiatric: mood/affect appropriate Results - Lab Results 12/21/16 03:53 12/21/16 03:53 Most recent lab results ABG pH 7.37 pH Units (7.32-7.45) 12/20/16 23:10 ABG pCO2 35 mmHg (35-45) 12/20/16 23:10 ABG pO2 69 mmHg (85-104) L 12/20/16 23:10 ABG HCO3 20.2 mEQ/L (21-27) L 12/20/16 23:10 ABG O2 Saturation 93 % (95-98) L 12/20/16 23:10 Calcium 10.1 mg/dL (8.6-10.8) 12/21/16 03:53 Consult Discharge Plan - Plan Additional Instructions: Follow-instructions of physical therapy Be careful when you are walking to not fall Follow-up with your primary care provider Referrals: Zeyad Costa MD [Primary Care Provider] - 01/04/17 3:30 pm (Dr. Costa is out of office next week. Pt cannot get into him until 01/04/17 due to this. )
--- NOTE | 2016-12-21 14:41 | Electrocardiograph Report ---
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
--- NOTE | 2016-12-21 15:00 | Event Note ---
Date of Encounter: 12/21/16 Time of Encounter: 14:57 - Cardiology Event Note Patient's RN paged stating patient would like to discuss his care with me. Upon speaking to patient, he has decided that he does not want any intervention or further work up regarding aortic valve. Patient educated on risks of not undergoing TAVR including CVA and . Patient states understanding and states he still does not want further intervention/work up for valve. Patient and family state they would like code status be changed also. Patient states he does not want CPR, defibrillation, intubation or heoric measures in the event that his heart would stop or he would stop breathing. Palliative care team consulted. Hospitalist notified.
--- NOTE | 2016-12-21 15:56 | Palliative - Consult Note ---
Date of Encounter: 12/21/16 Time of Encounter: 15:50 - Assessment and Plan (1) Dyspnea Current Visit: Yes Status: Acute Assessment and plan: Begin low dose Roxanol PRN. Titrate as needed. Qualifiers: Dyspnea type: unspecified Qualified Code(s): R06.00 - Dyspnea, unspecified (2) Counseling regarding advanced care planning and goals of care Current Visit: Yes Status: Acute Assessment and plan: Met with pt/family. Patient alert and participated in conversation at times, but would drift off to sleep. Daughters, Sayda and Rukhsana and their husbands at bedside. They are only children, and state they have power of civil attorney and will bring in. Patient has decided against transfer to [facility] and does not want to pursue TAVR. Desires comfort measures only. Patient states "Im ready to check out, just keep me comfortable". Family all in agreement with his wishes. Code status transitioned to DNRCC and state form completed, copies provided to family. Family interested in hospice care, he was in transition for assisted living and they have appt at [facility] tomorrow at 1030 am. Discussed they need to ask the [facility] if they have enough assistance along with Hospice to provide his care safely. Will f/u in am after they meet. Most likely will discharge with [facility] hospice, but again, will f/u with daughters in am. (3) Aortic stenosis, severe Current Visit: No Status: Acute (4) Heart failure Current Visit: No Status: Chronic Qualifiers: Heart failure type: diastolic Heart failure chronicity: unspecified heart failure chronicity Qualified Code(s): I50.30 - Unspecified diastolic ( congestive) heart failure (5) Atrial fibrillation Current Visit: No Status: Acute Qualifiers: Atrial fibrillation type: paroxysmal Qualified Code(s): I48.0 - Paroxysmal atrial fibrillation Palliative-CN HPI - Data of Consult Consult date: 12/21/16 Requesting Physician: Tj Paredes DO Primary Care Provider: Zeyad Costa, - Consult Narrative History of present illness: Mr. Villarreal is a 86 year old male with a history of severe aortic stenosis, who was admitted with increasing shortness of breath and confusion. He currently lives independently, and was supposed to transition to assisted living. Family describes he was very independent and active until recently. They state over the past few weeks, he has had days of "not feeling well", and daughter stated he had a few periods of confusion. Cardiology has followed closely, and he was offered a transfer to [facility] for TAVR evaluation, however, after discussion with his family, has decided not to proceed. He has been treated with IV diuretics and nephrology has been consulted to follow renal function. At my visit, he is resting quietly. Drowsy and drifts off to sleep during conversation. Family at bedside. States shortness of breath is better since admission. Denies chest pain, nausea, constipation. States he has poor appetite , and generalized weakness. He states, "Time for me to just check out - I don' t want to put my family through any more or be a burden". Pleasant and cooperative with exam. CC: Tj Paredes, DO Past Med Surg Social Fam HX - Past Medical History Medical history: non-contributory, atrial fibrillation, hyperlipidemia, myocardial infarction, sudden cardiac Psychiatric history: no psych history - Past Surgical History Surgical History: cataract, pacemaker - Social History Smoking Status: Never smoker Smokeless Tobacco Status: No Alcohol use: none Drug use: none - Family History Mother Adopted: No Family Member Ethnicity: Non- Living Status: Hx Family Cardiac Disorders: No Hx Family Respiratory Disorders: No Hx Family Cancer: Yes Hx Family GI Disorders: Yes (bleeding ulcers, cancer) Hx Family Endocrine Disorder: No Hx Family Neuromuscular Disorders: No Hx Family Neurologic Disorders: No Hx Family HEENT Disorders: No Hx Family Autoimmune Disorders: No Medications and Allergies Aspirin [Adult Low Dose Aspirin EC] 1 tab PO DAILY 02/25/15 [History] Cholecalciferol (Vitamin D3) [Vitamin D3] 2,000 unit PO DAILY 02/25/15 [History] Finasteride [Proscar] 5 mg PO DAILY 02/25/15 [History] Multivitamin [Multivitamins] 1 each PO DAILY 02/25/15 [History] Simvastatin [Zocor] 20 mg PO HS 02/25/15 [History] Apixaban [Eliquis] 2.5 mg PO BID 01/15/16 [History] Loratadine [Claritin] 10 mg PO BID #30 tablet 05/08/16 [Rx] Latanoprost [Xalatan] 1 drop OP DAILY 12/21/16 [History] Metoprolol [Lopressor] 25 mg PO BID 12/21/16 [History] Omeprazole [PriLOSEC] 20 mg PO DAILY 12/21/16 [History] Sucralfate [Carafate] 1 gm PO BID 12/21/16 [History] Allergies No Known Allergies Allergy (Verified 01/15/16 11:53) All systems: reviewed and no additional remarkable complaints except as stated ( generalized weakness, lower extremity edema, shortness of breath, poor appetite) Palliative Care-Exam - Constitutional Vitals: Temp Pulse Resp BP Pulse Ox 97.4 F L 60 16 136/72 96 12/21/16 11:49 12/21/16 11:49 12/21/16 11:49 12/21/16 11:49 12/21/16 07:35 General appearance: Present: no acute distress - Head Head Exam: Present: normal inspection, normocephalic - Eye Eye exam: Present: normal appearance, PERRL - Respiratory Respiratory exam: Present: decreased breath sounds, CTAB Additional comments: Crackles bilateral bases - Cardiovascular Cardiovascular exam: Present: +S1, +S2, systolic murmur - GI/Abdominal Exam GI/Abdominal exam: Present: normal bowel sounds, soft - Additional comments: Voids per urinal - Extremities Exam Additional comments: Edema to bilateral ankles 2+ - Neurological Exam Neurological exam: Present: alert, oriented X3, strengths equal and symetr throughout - Skin Skin exam: Present: dry, pallor, warm Internal Medicine - CN: Reslt - Labs CBC & Chem 7: 12/21/16 03:53 12/21/16 03:53 Labs: Short CBC 12/21/16 Range/Units 03:53 WBC 7.2 (4.3-11.1) K/mcL Hgb 10.1 L (12.9-16.9) g/dL Hct 31.9 L (37.5-50.1) % Plt Count 162 (140-400) K/mcL BMP 12/21/16 03:53 Sodium 145 Potassium 4.8 H Chloride 113 H Carbon Dioxide 23 BUN 66 H Creatinine 2.67 H Glucose 105 H Calcium 10.1 Cardiac Enzymes 12/21/16 12/21/16 Range/Units 03:53 09:23 Troponin I 0.13 H* 0.13 H* (0-0.03) ng/mL Liver Function 12/21/16 Range/Units 03:53 Total Bilirubin 0.6 (0.2-1.2) mg/dL AST 40 H (5-34) Units/L ALT 43 (0-55) Units/L Alkaline Phosphatase 117 (38-126) Units/L Albumin 3.5 (3.5-5.0) g/dL Urine 12/21/16 Range/Units 00:35 Urine Color Yellow (Yellow) Urine Clarity Clear (Clear) Urine pH 6.0 (5.0-8.0) pH Units Ur Specific [place] 1.014 (1.010-1.025) Urine Protein Trace (Neg-Trace) mg/dL Urine Glucose (UA) Normal (Normal) mg/dL - ABG Interpretation ABG results: ABG ABG pH 7.37 pH Units (7.32-7.45) 12/20/16 23:10 ABG pCO2 35 mmHg (35-45) 12/20/16 23:10 ABG pO2 69 mmHg (85-104) L 12/20/16 23:10 ABG O2 Saturation 93 % (95-98) L 12/20/16 23:10 Consult Discharge Plan - Plan Referrals: Zeyad Costa MD [Primary Care Provider] - Palliative Quality Palliative Quality: Screen for Code Status: Yes, Screen for Goals of Care: Yes, Screen for Pain: Yes, If Pain Regimen Started, Initiate Bowel Regimen: NA, Screen for Nausea/Vomitting: Yes Code Status: 12/21/16 15:53 DNR [Resuscitation Status: Active] [RES] Routine Comment: Resuscitation Status: DNR-Comfort Care
[2016-12-21] MEDS ORDERED: Morphine Oral CONC 5 MG/0.25 ML ORAL.SYG PO PRN (16:11)
[2016-12-21 16:55] LABS: Creatinine,Urine 21 mg/dL; Microalbum/Creatinine Ratio,Ur 43 (0-30); Microalbumin,Urine 9 mg/L; Protein/Creatinine Ratio,Urine 0.33 mg/mg (0-0.20)
[2016-12-22] MEDS: Finasteride 5 MG TABLET PO SCH (09:34)
[2016-12-22] MEDS: APIXABAN 2.5 MG TABLET PO SCH ×2 (09:34→20:02)
[2016-12-22] MEDS: Aspirin Enteric Coated 81 MG Tablet PO SCH (09:34)
--- NOTE | 2016-12-22 09:50 | Event Note ---
Date of Encounter: 12/22/16 Time of Encounter: 08:45 - Cardiology Event Note Palliative care following patient. Code status has been changed to DNR-CC. Mention of possible discharge with hospice. Spoke with patient this morning, he still only wants comfort measures only. Educated patient is he changes his mind , to let hospitalist team know. Cardiology will sign off. No follow up will be scheduled.
--- NOTE | 2016-12-22 10:55 | Palliative Progress Note ---
Date of Encounter: 12/22/16 Time of Encounter: 10:45 - Assessment and plan (1) Dyspnea Current Visit: Yes Status: Acute Assessment and plan: Has Roxanol PRN - has not needed. MOnitor. Qualifiers: Qualified Code(s): R06.00 - Dyspnea, unspecified (2) Counseling regarding advanced care planning and goals of care Current Visit: Yes Status: Acute Assessment and plan: Awaiting family to arrive - they had meeting this am with assisted living facility to discuss transition there as well as getting hospice involved. They are supposed to notify us with further information after meeting today. (3) Aortic stenosis, severe Current Visit: No Status: Acute (4) Heart failure Current Visit: No Status: Chronic Qualifiers: Qualified Code(s): I50.30 - Unspecified diastolic (congestive) heart failure (5) Atrial fibrillation Current Visit: No Status: Acute Qualifiers: Qualified Code(s): I48.0 - Paroxysmal atrial fibrillation - Time Spent With Patient Total time spent is greater than 50% in coordination of care (as documented) at patient's floor/unit and/or counseling patient: 25 - 35 minutes - Subjective Interval history: Patient awake, alert and oriented. Ate well this am. Denies and pain or dyspnea this am. Hoping to be discharged soon. - Constitutional Vitals: Abnormal lab results RBC 3.29 M/mcL (4.19-5.50) L 12/21/16 03:53 Hgb 10.1 g/dL (12.9-16.9) L 12/21/16 03:53 Hct 31.9 % (37.5-50.1) L 12/21/16 03:53 RDW 16.2 % (11.5-14.5) H 12/21/16 03:53 MPV 12.9 fL (9.4-12.4) H 12/21/16 03:53 Lymphocytes # 0.5 K/mcL (0.6-4.6) L 12/20/16 21:57 ABG pO2 69 mmHg (85-104) L 12/20/16 23:10 ABG HCO3 20.2 mEQ/L (21-27) L 12/20/16 23:10 ABG O2 Saturation 93 % (95-98) L 12/20/16 23:10 ABG Base Excess -4.5 mEq/L (-2.0 to 3.0) L 12/20/16 23:10 Potassium 4.8 mEq/L (3.5-4.5) H 12/21/16 03:53 Chloride 113 mEq/L (98-109) H 12/21/16 03:53 BUN 66 mg/dL (8-26) H 12/21/16 03:53 Creatinine 2.67 mg/dL (0.72-1.25) H 12/21/16 03:53 Est GFR ( Amer) 28 (> 60) L 12/21/16 03:53 Est GFR (Non-Af Amer) 23 (> 60) L 12/21/16 03:53 Glucose 105 mg/dL (70-99) H 12/21/16 03:53 Calculated Osmolality 319 (280-300) H 12/21/16 03:53 AST 40 Units/L (5-34) H 12/21/16 03:53 Troponin I 0.13 ng/mL (0-0.03) H* 12/21/16 09:23 B-Natriuretic Peptide > 5000 pg/mL (0-100) H 12/20/16 21:57 Globulin 3.7 g/dL (2.4-3.5) H 12/21/16 03:53 Albumin/Globulin Ratio 0.9 (1.1-2.2) L 12/21/16 03:53 PTH Intact 77.1 pg/ml (8.5-72.5) H 12/22/16 06:54 Urine Blood Small (Negative) H 12/21/16 00:35 Urine Microscopic RBC 5-15 per hpf (0-3) H 12/21/16 00:35 Ur Squamous Epith Cells Moderate per lpf (None-Few) H 12/21/16 00:35 Microalb/Creat Ratio 43 (0-30) H 12/21/16 16:04 Protein/Creatinin Ratio 0.33 mg/mg (0-0.20) H 12/21/16 16:04 General appearance: Present: no acute distress - Respiratory Respiratory exam: Present: decreased breath sounds, CTAB Additional comments: Fine crackles bilateral bases - Cardiovascular Cardiovascular exam: Present: +S1, +S2, systolic murmur - GI/Abdominal GI/Abdominal exam: Present: normal bowel sounds, soft - Extremities Exam Additional comments: 2+ edema bilateral ankles - Neurological Exam Neurological exam: Present: alert, oriented X3, strengths equal and symetr throughout - Skin Skin exam: Present: dry, pallor Palliative Quality Palliative Quality: Screen for Code Status: Yes, Screen for Goals of Care: Yes, Screen for Pain: Yes, If Pain Regimen Started, Initiate Bowel Regimen: NA, Screen for Nausea/Vomitting: Yes Code Status: 12/21/16 15:53 DNR [Resuscitation Status: Active] [RES] Routine Comment: Resuscitation Status: DNR-Comfort Care - Labs CBC & Chem 7: 12/21/16 03:53 12/21/16 03:53 Labs: Laboratory Results - last 24 hr 12/21/16 12/22/16 16:04 06:54 PTH Intact 77.1 H Urine Creatinine 21 Urine Microalbumin 9 Microalb/Creat Ratio 43 H Protein/Creatinin Ratio 0.33 H Urine Total Protein < 7 - ABG Interpretation ABG results: ABG ABG pH 7.37 pH Units (7.32-7.45) 12/20/16 23:10 ABG pCO2 35 mmHg (35-45) 12/20/16 23:10 ABG pO2 69 mmHg (85-104) L 12/20/16 23:10 ABG O2 Saturation 93 % (95-98) L 12/20/16 23:10 Consult Discharge Plan - Plan Referrals: Zeyad Costa MD [Primary Care Provider] - 01/04/17 3:30 pm
--- NOTE | 2016-12-22 11:25 | Nephrology Progress Note ---
<Patricia Stock Susanna - Last Filed: 12/22/16 11:27> Date of Encounter: 12/22/16 Time of Encounter: 11:23 - Assessment and Plan (1) CKD (chronic kidney disease) stage 4, GFR 15-29 ml/min Current Visit: Yes Status: Acute Kidney function stable-GFR 23, Scr 2.67 Sitting up in chair, talking without difficulty Good UOP 1700ml Avoid nephrotoxins if possible Patient transitioning to palliative/hospice care (2) Aortic stenosis Current Visit: Yes Status: Acute per cardiology tea Qualifiers: Cardiac valve disease etiology: etiology unspecified Qualified Code(s): I35.0 - Nonrheumatic aortic (valve) stenosis (3) Congestive heart failure Current Visit: Yes Status: Acute per primary team Qualifiers: Congestive heart failure type: diastolic Congestive heart failure chronicity: acute on chronic Qualified Code(s): I50.33 - Acute on chronic diastolic (congestive) heart failure Subjective Principal diagnosis: aortic stenosis, severe, CHF, CKD stage 4 Interval history: Patient seen and examined. Sitting up in chair, states still has shortness of breath. Objective - Vital Signs Vital signs: Vital Signs Temp Pulse Resp BP Pulse Ox 12/22/16 08:03 97.6 F 60 15 128/69 90 12/22/16 04:33 97.5 F L 62 21 152/67 92 12/21/16 23:20 97.5 F L 60 21 132/61 99 12/21/16 19:37 97.7 F 60 18 121/54 92 12/21/16 17:11 58 16 125/64 94 12/21/16 11:49 97.4 F L 60 16 136/72 Intake and Output 12/21/16 12/22/16 12/22/16 23:59 07:59 15:59 Intake Total 480 / 480 Output Total 700 / 700 350 / 350 Balance -220 / -220 -350 / -350 Intake: Oral 480 / 480 Output: Urine 700 / 700 350 / 350 Other: Meal Dinner Percent of Meal Consumed 100% # Voids 2 # Urine Diapers 1 Weight 67.1 kg Patient Weight 12/22/16 23:59 Weight 67.1 kg - General Appearance General appearance: Present: chronically ill, frail EENT: Present: ATNC, mucous membranes moist Neck: Present: supple Respiratory: Present: clear Cardiology: Present: no edema, normal S1, normal S2 Gastrointestinal: Present: no tenderness, no guarding Integumentary: Present: warm and dry Neurologic: Present: alert and oriented x3 Psychiatric: Present: mood/affect appropriate, cooperative - Lab 12/21/16 03:53 12/21/16 03:53 Most recent lab results ABG pH 7.37 pH Units (7.32-7.45) 12/20/16 23:10 ABG pCO2 35 mmHg (35-45) 12/20/16 23:10 ABG pO2 69 mmHg (85-104) L 12/20/16 23:10 ABG HCO3 20.2 mEQ/L (21-27) L 12/20/16 23:10 ABG O2 Saturation 93 % (95-98) L 12/20/16 23:10 Calcium 10.1 mg/dL (8.6-10.8) 12/21/16 03:53 Urine Creatinine 21 mg/dL 12/21/16 16:04 Urine Total Protein < 7 mg/dL (1-14) 12/21/16 16:04 - VTE Reasons for not Prescribing Prophylaxis: Not indicated-Anticoagulated or INR therapeutic Consult Discharge Plan - Plan Additional Instructions: Follow-instructions of physical therapy Be careful when you are walking to not fall Follow-up with your primary care provider Referrals: Zeyad Costa MD [Primary Care Provider] - 01/04/17 3:30 pm (Dr. Costa is out of office next week. Pt cannot get into him until 01/04/17 due to this. ) <Siddharth Coppola - Last Filed: 12/23/16 12:31> Date of Encounter: 12/22/16 Objective - Vital Signs Vital signs: Vital Signs Temp Pulse Resp BP Pulse Ox 12/23/16 07:51 98 F 60 18 136/64 91 12/22/16 19:38 97.7 F 60 16 119/64 95 Intake and Output 12/22/16 12/23/16 12/23/16 23:59 07:59 15:59 Intake Total 120 / 120 Output Total 50 / 50 Balance -50 / -50 120 / 120 Intake: Oral 120 / 120 Output: Urine 50 / 50 Other: Meal Dinner Percent of Meal Consumed 100% 80% # Voids 1 - Lab 12/21/16 03:53 12/21/16 03:53 Most recent lab results ABG pH 7.37 pH Units (7.32-7.45) 12/20/16 23:10 ABG pCO2 35 mmHg (35-45) 12/20/16 23:10 ABG pO2 69 mmHg (85-104) L 12/20/16 23:10 ABG HCO3 20.2 mEQ/L (21-27) L 12/20/16 23:10 ABG O2 Saturation 93 % (95-98) L 12/20/16 23:10 Calcium 10.1 mg/dL (8.6-10.8) 12/21/16 03:53 Urine Creatinine 21 mg/dL 12/21/16 16:04 Urine Total Protein < 7 mg/dL (1-14) 12/21/16 16:04 - Attending Attestation Pt seen and examined still with SOB despite good UOP but very hesitant for any major interventions. Palliative care on board and if hospice planned, will signoff. Please reconsult prn.
--- NOTE | 2016-12-22 14:05 | Internal Med Progress Note ---
<Cornelius Pete Yennifer - Last Filed: 12/22/16 15:38> Date of Encounter: 12/22/16 Time of Encounter: 14:01 - Assessment and plan (1) Aortic stenosis, severe Current Visit: No Status: Acute Assessment and plan: Patient declines TAVR procedure. Would like comfort care measures. Palliative consulted. Family had meeting this AM with assisted living facility - awaiting further instructions from the family (2) Congestive heart failure Current Visit: Yes Status: Acute Assessment and plan: CXR with pulmonary edema 2/2 to severe . LE edema present. Patient reports breathing is improving. Discontinued tele, I&Os, and daily weights Qualifiers: Congestive heart failure type: diastolic Congestive heart failure chronicity: acute on chronic Qualified Code(s): I50.33 - Acute on chronic diastolic (congestive) heart failure (3) Atrial fibrillation Current Visit: No Status: Acute Assessment and plan: Paroxysmal - on Eliquis Qualifiers: Atrial fibrillation type: paroxysmal Qualified Code(s): I48.0 - Paroxysmal atrial fibrillation (4) CKD (chronic kidney disease) Current Visit: Yes Status: Acute Assessment and plan: Avoid nephrotoxins Qualifiers: Chronic kidney disease stage: stage 3 (moderate) Qualified Code(s): N18.3 - Chronic kidney disease, stage 3 (moderate) - Subjective Interval history: Patient seen and examined. States he is feeling well with no complaints. Denies syncope, light-headedness, chest pain, dyspnea, cough, N/V/D, dysuria, or leg pain. - Constitutional Vitals: Temp Pulse Resp BP Pulse Ox 97.4 F L 60 18 122/62 96 12/22/16 11:36 12/22/16 11:36 12/22/16 11:36 12/22/16 11:36 12/22/16 11:36 General appearance: Present: no acute distress, answers questions appropriately - Head Head exam: Present: atraumatic, normocephalic - Respiratory Respiratory exam: Present: CTAB. Absent: rales, rhonchi, wheezes - Cardiovascular Cardiovascular exam: Present: RRR, +S1, +S2. Absent: diastolic murmur, systolic murmur - GI/Abdominal GI/Abdominal exam: Present: normal bowel sounds, soft. Absent: distended, rigid , tenderness, no peritoneal signs - Extremities Exam Extremities exam: Present: pedal edema, warm. Absent: joint swelling, tenderness - Neurological Exam Neurological exam: Present: alert, CN II-XII intact, no focal deficits Internal Medicine: Result - Labs CBC & Chem 7: 12/21/16 03:53 12/21/16 03:53 - ABG Interpretation ABG results: ABG ABG pH 7.37 pH Units (7.32-7.45) 12/20/16 23:10 ABG pCO2 35 mmHg (35-45) 12/20/16 23:10 ABG pO2 69 mmHg (85-104) L 12/20/16 23:10 ABG O2 Saturation 93 % (95-98) L 12/20/16 23:10 - VTE Reasons for not Prescribing Prophylaxis: Not indicated-Anticoagulated or INR therapeutic Consult Discharge Plan - Plan Referrals: Zeyad Costa MD [Primary Care Provider] - 01/04/17 3:30 pm (Dr. Costa is out of office next week. Pt cannot get into him until 01/04/17 due to this. ) <Otto Dutton - Last Filed: 12/22/16 15:40> Date of Encounter: 12/22/16 - Constitutional Vitals: Temp Pulse Resp BP Pulse Ox 97.4 F L 60 18 122/62 96 12/22/16 11:36 12/22/16 11:36 12/22/16 11:36 12/22/16 11:36 12/22/16 11:36 Internal Medicine: Result - Labs CBC & Chem 7: 12/21/16 03:53 12/21/16 03:53 - ABG Interpretation ABG results: ABG ABG pH 7.37 pH Units (7.32-7.45) 12/20/16 23:10 ABG pCO2 35 mmHg (35-45) 12/20/16 23:10 ABG pO2 69 mmHg (85-104) L 12/20/16 23:10 ABG O2 Saturation 93 % (95-98) L 12/20/16 23:10 - Attending Attestation arrange placement I examined this patient and my medical decision-making was reviewed with the Resident Physician. I agree with the documented findings, disposition and treatment plan as described except to the extent set forth below.
--- NOTE | 2016-12-22 14:29 | Event Note ---
Date of Encounter: 12/22/16 Time of Encounter: 14:30 Family has discussed with social work, they have changed discharge plan and now desire to go skilled to ECF. They were informed that he may not meet intensity , and they may ultimately be responsible for the bill. PT/OT consult ordered for eval. Family has placed downpayment for assisted living, although he is on waiting list. Once he finishes skilled days, family will enroll at hospice at that time.
[2016-12-22] MEDS ORDERED: Acetaminophen 325 MG TABLET PO PRN (15:36)
[2016-12-23 03:39] LABS: Alpha 2 Globulin (PEP) 0.88 g/dL (0.48-1.05)
[2016-12-23 07:52] VITALS: BP 136/64
[2016-12-23 08:25] LABS: Complement Component 3 112 mg/dL (88-201)
[2016-12-23 08:26] LABS: Complement Component 4 37 mg/dL (10-40)
[2016-12-23 08:30] LABS: IFE Reflexed NOT DONE
[2016-12-23] MEDS: APIXABAN 2.5 MG TABLET PO SCH (09:12)
[2016-12-23] MEDS: Aspirin Enteric Coated 81 MG Tablet PO SCH (09:12)
[2016-12-23] MEDS: Finasteride 5 MG TABLET PO SCH (09:12)
--- NOTE | 2016-12-23 09:38 | Discharge Summary ---
<Cornelius Pete - Last Filed: 12/23/16 10:52> Date of Encounter: 12/23/16 Time of Encounter: 09:36 - Discharge Diagnosis (1) Aortic stenosis, severe Priority: Primary Status: Acute (2) Congestive heart failure Priority: Secondary Status: Acute Qualifiers: Congestive heart failure type: diastolic Congestive heart failure chronicity: acute on chronic Qualified Code(s): I50.33 - Acute on chronic diastolic (congestive) heart failure (3) Atrial fibrillation Priority: Secondary Status: Acute Qualifiers: Atrial fibrillation type: paroxysmal Qualified Code(s): I48.0 - Paroxysmal atrial fibrillation (4) CKD (chronic kidney disease) Priority: Secondary Status: Acute Qualifiers: Chronic kidney disease stage: stage 3 (moderate) Qualified Code(s): N18.3 - Chronic kidney disease, stage 3 (moderate) - Discharge Medications Home Medications: Aspirin [Adult Low Dose Aspirin EC] 1 tab PO DAILY 02/25/15 [History] Cholecalciferol (Vitamin D3) [Vitamin D3] 2,000 unit PO DAILY 02/25/15 [History] Finasteride [Proscar] 5 mg PO DAILY 02/25/15 [History] Multivitamin [Multivitamins] 1 each PO DAILY 02/25/15 [History] Simvastatin [Zocor] 20 mg PO HS 02/25/15 [History] Apixaban [Eliquis] 2.5 mg PO BID 01/15/16 [History] Loratadine [Claritin] 10 mg PO BID #30 tablet 05/08/16 [Rx] Latanoprost [Xalatan] 1 drop OP DAILY 12/21/16 [History] Metoprolol [Lopressor] 25 mg PO BID 12/21/16 [History] Omeprazole [PriLOSEC] 20 mg PO DAILY 12/21/16 [History] Sucralfate [Carafate] 1 gm PO BID 12/21/16 [History] Allergies/Adverse Reactions: Allergies No Known Allergies Allergy (Verified 01/15/16 11:53) Date of admission: 12/20/16 23:56 Primary care physician: Zeyad Costa, Consults: 12/21/16 00:08 Consult to Nephrology [CONS] Routine Consulting Provider: Kidney Lacey/ELSI/YOLANDA/DINROAH Reason for Consult: ANNIE on CKD. Admitted for dyspnea liklely related to critical aortic stenosis. Appreciate volume management and follow-up. Call Completed: No 12/21/16 14:55 Consult to Palliative Care [CONS] Routine Comment: Consulting Provider: [facility]iative [facility] Reason for Consult: Patient with critical aortic stenosis. Now refusing treatment/intervention. Wants to change code status. Call Completed: Yes 12/22/16 14:23 Consult to Physical Therapy [CONS] Routine Comment: Evaluate, develop and implement POC Reason for Consult: eval for skilled ECF 12/22/16 14:24 Consult to Occupational Therapy [CONS] Routine Comment: Evaluate, develop and implement POC Reason for Consult: eval for ECF Discharging clinician: Cornelius Pete Anticipated date of discharge: 12/23/16 - Patient Status Disposition: Transfer SNF Condition: Fair Functional capacity at discharge: uses cane/walker Overall status at discharge: patient is progressing back to baseline - Discharge Instructions Follow Up With: Zeyad Costa MD [Primary Care Provider] - 01/04/17 3:30 pm (Dr. Costa is out of office next week. Pt cannot get into him until 01/04/17 due to this. ) Additional Instructions: Follow-instructions of physical therapy Be careful when you are walking to not fall Follow-up with your primary care provider - Diet and Activity Activity: as per physical therapy Diet: advance to your usual diet Interval History: Patient seen and examined. He reports he is feeling well this morning with no complaints. He states his leg pain is resolved from yesterday. He denies light- headedness, chest pain, dyspnea, N/V/D, dysuria, or leg pain/swelling. Hospital course: Mr. Villarreal is a 86 year old male with PMH of severe Aortic Stenosis, Atrial fibrillation with pacer (2016), presenting with acute on chronic dyspnea and pulmonary edema. He was hemodynamically stable during his hospitalization with no acute events. He qualifies for a TAVR procedure, but has declined the procedure once prior in [facility]. He continues to decline the procedure during this hospitalization. He has decided he would like to pursue comfort measure going forward and changed his code status to DNRCC. Given that he has prior episodes of syncope and declining general condition, he would be better served living in an assisted living facility. He and his family are in agreement with this plan. - Time Spent with Patient Total time spent providing and/or coordinating discharge services: - Constitutional Vitals: Temp Pulse Resp BP Pulse Ox 98 F 60 18 136/64 91 12/23/16 07:51 12/23/16 07:51 12/23/16 07:51 12/23/16 07:51 12/23/16 07:51 General appearance: Present: no acute distress, answers questions appropriately - Head Head exam: Present: atraumatic, normocephalic - Respiratory Respiratory exam: Present: CTAB. Absent: rales, rhonchi, wheezes - Cardiovascular Cardiovascular exam: Present: RRR, +S1, +S2, systolic murmur. Absent: diastolic murmur - GI/Abdominal GI/Abdominal exam: Present: normal bowel sounds, soft. Absent: distended, rebound, tenderness - Extremities Exam Extremities exam: Present: pedal edema, warm, radial pulses palpable and symmetrical. Absent: joint swelling, tenderness - Neurological Exam Neurological exam: Present: alert, CN II-XII intact, no focal deficits - VTE Reasons for not Prescribing Prophylaxis: Not indicated-Anticoagulated or INR therapeutic <Otto Dutton H - Last Filed: 12/23/16 14:09> Date of Encounter: 12/23/16 Date of admission: 12/20/16 23:56 Primary care physician: Zeyad Costa, Consults: 12/21/16 00:08 Consult to Nephrology [CONS] Routine Consulting Provider: Kidney Lacey/ELSI/YOLANDA/DINORAH Reason for Consult: ANNIE on CKD. Admitted for dyspnea liklely related to critical aortic stenosis. Appreciate volume management and follow-up. Call Completed: No 12/21/16 14:55 Consult to Palliative Care [CONS] Routine Comment: Consulting Provider: [facility] [place] Reason for Consult: Patient with critical aortic stenosis. Now refusing treatment/intervention. Wants to change code status. Call Completed: Yes 12/22/16 14:23 Consult to Physical Therapy [CONS] Routine Comment: Evaluate, develop and implement POC Reason for Consult: eval for skilled ECF 12/22/16 14:24 Consult to Occupational Therapy [CONS] Routine Comment: Evaluate, develop and implement POC Reason for Consult: eval for ECF Hospital course: Mr. Villarreal is a 86 year old male - Time Spent with Patient Total time spent providing and/or coordinating discharge services: - Constitutional Vitals: Temp Pulse Resp BP Pulse Ox 98 F 60 18 136/64 91 12/23/16 07:51 12/23/16 07:51 12/23/16 07:51 12/23/16 07:51 12/23/16 07:51 - Attending Attestation Stable to be discharged Time spent on this discharge 40 minutes I examined this patient and my medical decision-making was reviewed with the Resident Physician. I agree with the documented findings, disposition and treatment plan as described except to the extent set forth below.
--- NOTE | 2016-12-23 10:50 | Physician Discharge Referral ---
<Cornelius Pete R - Last Filed: 12/23/16 10:48> ExtendedCare Referral Info Transfer To: [facility] Provider in Charge after Transfer: PCP, Other ([employer]) Institutional Level of Care: Skilled - Diagnosis (1) Aortic stenosis, severe Priority: Primary Status: Acute (2) Congestive heart failure Priority: Secondary Status: Acute (3) Atrial fibrillation Priority: Secondary Status: Acute (4) CKD (chronic kidney disease) Priority: Secondary Status: Acute - Transfer Medications Home Medications: Aspirin [Adult Low Dose Aspirin EC] 1 tab PO DAILY 02/25/15 [History] Cholecalciferol (Vitamin D3) [Vitamin D3] 2,000 unit PO DAILY 02/25/15 [History] Finasteride [Proscar] 5 mg PO DAILY 02/25/15 [History] Multivitamin [Multivitamins] 1 each PO DAILY 02/25/15 [History] Simvastatin [Zocor] 20 mg PO HS 02/25/15 [History] Apixaban [Eliquis] 2.5 mg PO BID 01/15/16 [History] Loratadine [Claritin] 10 mg PO BID #30 tablet 05/08/16 [Rx] Latanoprost [Xalatan] 1 drop OP DAILY 12/21/16 [History] Metoprolol [Lopressor] 25 mg PO BID 12/21/16 [History] Omeprazole [PriLOSEC] 20 mg PO DAILY 12/21/16 [History] Sucralfate [Carafate] 1 gm PO BID 12/21/16 [History] Allergies/Adverse Reactions: Allergies No Known Allergies Allergy (Verified 01/15/16 11:53) - Respiratory Orders Smoking Cessation: Smoking cessation has been advised. For more information, call the [place] Tobacco Quit Line at 5-849-WDNC-NOW. - Advance Directives Code Status: DNR-Comfort Care - Mobility Orders Ambulate (zoltan hemphill, per PT) - Rehabiliation Orders Rehab Potential: Fair Rehab Orders: Evaluation for Physical Therapy, Evaluation for Occupational Therapy - Diet Orders Regular CERTIFICATION: I certify that the transfer of the above named patient to an Extended Care Facility is necessary for the continuing treatment of the diagnosis listed. The above information is true and accurate reflection of patient's current condition. Confidential - Redisclosure prohibited without a patient's written consent. <Otto Dutton H - Last Filed: 12/23/16 14:10> - Respiratory Orders Smoking Cessation: Smoking cessation has been advised. For more information, call the [place] Tobacco Quit Line at 6-704-ZHMF-NOW. CERTIFICATION: I certify that the transfer of the above named patient to an Extended Care Facility is necessary for the continuing treatment of the diagnosis listed. The above information is true and accurate reflection of patient's current condition. Confidential - Redisclosure prohibited without a patient's written consent. I examined this patient and my medical decision-making was reviewed with the Resident Physician. I agree with the documented findings, disposition and treatment plan as described except to the extent set forth below.
[2016-12-24 07:16] LABS: ANA IgG by ELISA NONE DETECTED (None Detected)
[2016-12-24 19:07] LABS: Urine Collection Duration RANDOM hr; Urine Collection Volume RANDOM mL
== END 2016-12-23 14:45 | DRG 306 ==
LOC: EMEROO 21:29 → 2ANU 21:29 → SUATTDRO 23:56
PROVIDERS: ADMIT Internal Medicine Hematology & Oncology; ATTEND Internal Medicine

== ENCOUNTER 2017-01-16 21:13 | Inpatient (IN) ==
--- NOTE | 2017-01-16 21:25 | Emergency Department Note ---
Disposition Clinical Impression: Hypoxia, Elevated troponin, Elevated brain natriuretic peptide (BNP) level, Chronic anemia Pulmonary edema Qualifiers: Chronicity: chronic Qualified Code(s): J81.1 - Chronic pulmonary edema Fluid overload Qualifiers: Hypervolemia type: unspecified Qualified Code(s): E87.70 - Fluid overload, unspecified CKD (chronic kidney disease) Qualifiers: Chronic kidney disease stage: unspecified stage Qualified Code(s): N18.9 - Chronic kidney disease, unspecified Disposition: Admitted As Inpatient Condition: Good Instructions: Hypoxia (ED) Reasons to Return/Additional Instructions: Use face mask instead of nasal cannula for oxygen delivery, as patient is chronic mouth breather. Also use O2 monitor on forehead if patient has poor waveform on monitor. Return to the ER for any new or worsening symptoms including chest pain, shortness of breath, fevers, nausea, vomiting. Referrals: Unassigned,Provider [Non-Partnered Physician] - Forms: Work/School Release, ED Satisfaction Letter Time of Disposition: 23:35 General Adult HPI - General Chief complaint: ED General Medical Stated complaint: hypoxia Time Seen by Provider: 01/16/17 21:20 Source: patient, EMS Mode of arrival: EMS Limitations: no limitations Nursing Notes Reviewed: Yes Vital Signs Reviewed: Yes - History of Present Illness HPI Narrative: Patient is an 86-year-old male with past medical history of hypertension, CKD, CHF, aortic stenosis, chronic A. fib, chronic hypoxia. He presented today via EMS from [facility] due to concern for hypoxia. EMS states that they were told that the patient had oxygen saturations as low as 60%. However, they state that the patient had an extremity oxygen monitor on his fingers. Hands were very cold at the time. When they placed a monitor, he was satting in the 80s. On arrival, the patient was switched to a forehead oxygen monitor and on his usual 4 L nasal cannula oxygen. With this, his readings were in the low 90s. He denies any chest pain, any shortness of breath above his baseline with chronic CHF, any nausea, vomiting, fevers, abdominal pain. He is a chronic mouth breather. When told to close his mouth, his oxygen saturation went above 92%. - Related Data Home Medications Medication Instructions Recorded Confirmed Aspirin [Adult Low Dose Aspirin EC] 81 mg PO DAILY 02/25/15 01/14/17 Cholecalciferol (Vitamin D3) 2,000 unit PO DAILY 02/25/15 01/14/17 [Vitamin D3] Finasteride [Proscar] 5 mg PO DAILY 02/25/15 01/14/17 Multivitamin [Multivitamins] 1 each PO DAILY 02/25/15 01/14/17 Simvastatin [Zocor] 20 mg PO HS 02/25/15 01/14/17 Apixaban [Eliquis] 2.5 mg PO BID 01/15/16 01/14/17 Latanoprost [Xalatan] 1 drop OP HS 12/21/16 01/14/17 Metoprolol [Lopressor] 25 mg PO BID 12/21/16 01/14/17 Omeprazole [PriLOSEC] 20 mg PO DAILY 12/21/16 01/14/17 Sucralfate [Carafate] 1 gm PO BID 12/21/16 01/14/17 Acetaminophen [Tylenol] 650 mg PO Q6H PRN 01/14/17 01/14/17 Melatonin 5 mg PO HS 01/14/17 01/14/17 Mirtazapine 7.5 mg PO HS 01/14/17 01/14/17 Previous Rx's Medication Instructions Recorded Loratadine [Claritin] 10 mg PO BID #30 tablet 05/08/16 Furosemide [Lasix] 40 mg PO DAILY #30 tab 01/16/17 cephALEXin [Keflex] 500 mg PO BID #12 capsule 01/16/17 Allergies Allergy/AdvReac Type Severity Reaction Status Date / Time No Known Allergies Allergy Verified 01/16/17 21:15 All systems ED: reviewed and negative except as stated. Constitutional: Denies: fever Cardiovascular: Denies: chest pain Respiratory: Denies: dyspnea Gastrointestinal: Denies: abdominal pain, nausea, vomiting Past Medical History - Past Medical History Attestation: Yes The following information was validated with the patient. Source: patient, other Medical history: Reports: non-contributory, atrial fibrillation, hyperlipidemia , myocardial infarction, sudden cardiac Surgical history: Reports: cataract, pacemaker Psychiatric history: Reports: no psych history - Social History Smoking Status: Never smoker Smokeless Tobacco Status: No Alcohol use: Reports: none Drug use: Reports: none Physical Exam - General Limitations: no limitations General appearance: alert, in no apparent distress - Head Head exam: atraumatic, normocephalic, normal inspection - Eye Eye exam: Present: normal appearance, PERRL, EOMI - ENT ENT exam: mucous membranes moist, other (edentulous) - Neck Neck exam: Present: normal inspection, full ROM, trachea midline - Chest Chest inspection: Present: normal inspection, symmetric chest wall rise - Respiratory Respiratory exam: Present: normal lung sounds bilaterally - Cardiovascular Cardiovascular exam: Present: regular rate, normal rhythm, normal heart sounds - Abdominal Exam Abdominal exam: Present: soft, Non-Tender. Absent: tenderness, distention, guarding, rebound, rigidity - Extremities Exam Extremities exam: Present: pedal edema (bilateral LE). Absent: tenderness - Neurological Exam Neurological exam: Present: alert, oriented X3 - Psychiatric Psychiatric exam: Present: normal affect, normal mood - Skin Skin exam: Present: warm, dry, intact, normal color Course Course Narrative: BP stable. HR WNL. O2 was 92% when on 4L NC with O2 monitor on forehead. Increase in shortness of breath from baseline per family. He is tachypnic on exam. Physical exam shows clear lungs with decreased aeration in bilateral LL, heart regular rate and rhythm, mild edema of the bilateral lower extremity. EKG shows ventricularly paced rhythm, no acute changes from previous EKG. We will obtain chest x-ray to assess for any pneumonia or worsening edema. 23:13 CXR shows worsening pulm edema. Per family, patient has hx of CKD. Will start nitro drip for fluid overload. Waiting on additional labs. 23:25 labs show mild hyperkalemia, creatinine 2.0 which is near baseline for the patient, BNP greater than 5000, elevated troponin level of 0.16. Patient was given aspirin 325. He is currently on nitro drip for CHF exacerbation. No lasix given at this time due to poor kidney function. Plan to admit the patient for hypoxia, CHF exacerbation, fluid overload, elevated troponin. 23:32 Spoke with hospitalist for admission, Dr. Monterroso has requested IV lasix and accepted for admission.. 40mg IV lasix given. Chest X-Ray 01/16/17 21:23 IMPRESSION: Increased opacifications seen in the right upper lobe, which could be related to atelectasis superimposed on cardiomegaly, pleural effusions, and vascular congestion with pulmonary edema. D/ / Rubio Puri MD / Rubio Puri MD Interpreting Provider: Rubio Puri MD Vital Signs Temperature 97.9 F 01/16/17 21:17 Pulse Rate 63 01/16/17 21:17 Respiratory Rate 32 01/16/17 21:17 Blood Pressure 111/72 01/16/17 21:17 O2 Sat by Pulse Oximetry 88 01/16/17 21:17 Temperature 97.9 F 01/16/17 21:17 Pulse Rate 68 01/16/17 22:58 Respiratory Rate 28 01/16/17 22:58 Blood Pressure 129/62 01/16/17 22:58 O2 Sat by Pulse Oximetry 96 01/16/17 22:58 Oxygen Delivery Oxygen Delivery Simple Mask Medical Decision Making - MDM Narrative Medical decision making narrative: CXR shows worsening pulm edema. Per family, patient has hx of CKD. Will start nitro drip for fluid overload. labs show mild hyperkalemia, creatinine 2.0 which is near baseline for the patient, BNP greater than 5000, elevated troponin level of 0.16. Patient was given aspirin 325. He is currently on nitro drip for CHF exacerbation. Plan to admit the patient for hypoxia, CHF exacerbation, fluid overload, elevated troponin. Spoke with hospitalist for admission, Dr. Monterroso has requested IV lasix and accepted for admission.. 40mg IV lasix given. - Medical Records Medical records reviewed: Yes I reviewed the patient's medical records. - Lab Data Lab results reviewed: Yes I reviewed the patient's lab results. Result diagrams: 01/16/17 22:55 01/16/17 22:55 Lab Results 01/16/17 01/16/17 01/16/17 Range/Units 22:55 22:55 22:55 WBC 8.6 D (4.3-11.1) K/mcL RBC 3.36 L (4.19-5.50) M/mcL Hgb 10.4 L (12.9-16.9) g/dL Hct 34.0 L (37.5-50.1) % MCV 101.2 H (83.0-100.0) fL MCH 31.0 (28.0-33.3) pg MCHC 30.6 L (31.6-35.5) g/dL RDW 16.7 H (11.5-14.5) % Plt Count 173 (140-400) K/mcL MPV 11.8 (9.4-12.4) fL Immature Gran % 2.1 (0-4) % Seg Neutrophils % 79.3 % Lymphocytes % 5.8 % Monocytes % 11.4 % Eosinophils % 0.9 % Basophils % 0.5 % Neutrophils # 6.8 (1.6-8.9) K/mcL Lymphocytes # 0.5 L (0.6-4.6) K/mcL Monocytes # 1.0 (0.0-1.3) K/mcL Eosinophils # 0.1 (0.0-0.6) K/mcL Basophils # 0.0 (0.0-0.2) K/mcL Platelet Estimate Normal (Normal) Immature Plt Fraction 8.4 H (1.1-6.1) % Poikilocytosis 1+ A (Not Present) Anisocytosis 1+ A (Not Present) Ovalocytes 1+ A (Not Present) Schistocytes 1+ A (Not Present) Sodium 145 (136-145) mEq/L Potassium 4.6 H (3.5-4.5) mEq/L Chloride 113 H (98-109) mEq/L Carbon Dioxide 25 (19-29) mEq/L BUN 43 H (8-26) mg/dL Creatinine 2.00 H (0.72-1.25) mg/dL Est GFR ( Amer) 38 L (> 60) Est GFR (Non-Af Amer) 32 L (> 60) BUN/Creatinine Ratio 22 (6-26) Glucose 124 H (70-99) mg/dL Calculated Osmolality 312 H (280-300) Lactic Acid 1.3 (0.5-2.2) mmol/L Calcium 9.7 (8.6-10.8) mg/dL Troponin I (0-0.03) ng/mL B-Natriuretic Peptide (0-100) pg/mL 01/16/17 01/16/17 Range/Units 22:55 22:55 WBC (4.3-11.1) K/mcL RBC (4.19-5.50) M/mcL Hgb (12.9-16.9) g/dL Hct (37.5-50.1) % MCV (83.0-100.0) fL MCH (28.0-33.3) pg MCHC (31.6-35.5) g/dL RDW (11.5-14.5) % Plt Count (140-400) K/mcL MPV (9.4-12.4) fL Immature Gran % (0-4) % Seg Neutrophils % % Lymphocytes % % Monocytes % % Eosinophils % % Basophils % % Neutrophils # (1.6-8.9) K/mcL Lymphocytes # (0.6-4.6) K/mcL Monocytes # (0.0-1.3) K/mcL Eosinophils # (0.0-0.6) K/mcL Basophils # (0.0-0.2) K/mcL Platelet Estimate (Normal) Immature Plt Fraction (1.1-6.1) % Poikilocytosis (Not Present) Anisocytosis (Not Present) Ovalocytes (Not Present) Schistocytes (Not Present) Sodium (136-145) mEq/L Potassium (3.5-4.5) mEq/L Chloride (98-109) mEq/L Carbon Dioxide (19-29) mEq/L BUN (8-26) mg/dL Creatinine (0.72-1.25) mg/dL Est GFR ( Amer) (> 60) Est GFR (Non-Af Amer) (> 60) BUN/Creatinine Ratio (6-26) Glucose (70-99) mg/dL Calculated Osmolality (280-300) Lactic Acid (0.5-2.2) mmol/L Calcium (8.6-10.8) mg/dL Troponin I 0.16 H* (0-0.03) ng/mL B-Natriuretic Peptide > 5000 H (0-100) pg/mL - Radiology Data Radiology results reviewed: Yes I reviewed the patient's radiology results. Chest X-Ray 01/16/17 21:23 IMPRESSION: Increased opacifications seen in the right upper lobe, which could be related to atelectasis superimposed on cardiomegaly, pleural effusions, and vascular congestion with pulmonary edema. D/ / Rubio Puri MD / Rubio Puri MD Interpreting Provider: Rubio Puri MD - EKG Data EKG #1 EKG attestation: Yes I reviewed and interpreted this EKG. EKG results narrative: 01/16/2017 at 21:18. Ventricularly paced rhythm. Rate 68. QRS 181. QTc 480. S.Jatin. - Nicole Situation: Demographics, MOA Background: Presenting Complaint, Relevant PMH, Meds, & Allergies Assessment: Vital Signs, Course and respsone to treatment, Exam Concerns, Patient/Family Expectation, Pertinant Lab Results, Outstanding Labs Recommendation: Barrier(s) to disposition SReyes Report Given to: Dr. Loc Rivera Repor Time: 23:36 Attestation Statement - Attestation Attestation: I examined this patient and my medical decision-making was reviewed with the Resident Physician. I agree with the documented findings, disposition and treatment plan as described except to the extent set forth below. Patient to ED with a low saturation. Recheck his vital signs [facility]. They were having a hard time getting an oxygen saturation. They said he was in the 70s to 80s so they called EMS. Patient denies any complaints. He denies being short of breath. Patient in no distress on exam. His lungs are clear. He is noted to be mouth breathing. He has not tachypneic or in any distress. Plan. Patient is an oxygen saturation in the 80s. When he closes his mouth a brace there is no saturation rises to the mid 90s. We will check a chest x-ray and EKG.
[2017-01-16 23:03] LABS: Basophils % 0.5 %; Eosinophils # 0.1 K/mcL (0.0-0.6); Eosinophils % 0.9 %; Hemoglobin 10.4 g/dL (12.9-16.9); Immature Granulocytes % 2.1 % (0-4); Immature Platelets 8.4 % (1.1-6.1); Lymphocytes # 0.5 K/mcL (0.6-4.6); Lymphocytes % 5.8 %; Mean Corpuscular HGB Conc 30.6 g/dL (31.6-35.5); Mean Corpuscular Volume 101.2 fL (83.0-100.0); Mean Platelet Volume 11.8 fL (9.4-12.4); Monocytes % 11.4 %; Neutrophils # 6.8 K/mcL (1.6-8.9); Platelet Count 173 K/mcL (140-400); Red Blood Count 3.36 M/mcL (4.19-5.50); Red Cell Distribution Width 16.7 % (11.5-14.5); Segmented Neutrophils % 79.3 %
[2017-01-16] MEDS ORDERED: *HR* HYDROcodone/Acet 5/325 mg TABLET PO ONE (23:03)
[2017-01-16 23:14] LABS: Calcium 9.7 mg/dL (8.6-10.8); Potassium 4.6 mEq/L (3.5-4.5)
[2017-01-16] MEDS ORDERED: Nitroglycerin 25 MG/250 ML INFUS..BTL IVC SCH (23:15)
[2017-01-16 23:23] LABS: Platelet Estimate Normal (Normal)
[2017-01-16] MEDS ORDERED: Aspirin 325 MG TABLET PO ONE (23:23)
[2017-01-16 23:24] LABS: Anisocytosis 1+ (Not Present); Poikilocytosis 1+ (Not Present); Schistocytes 1+ (Not Present)
[2017-01-16 23:25] LABS: Ovalocytes 1+ (Not Present)
[2017-01-16] MEDS ORDERED: Furosemide 40 MG/4 ML VIAL IVP ONE (23:32)
[2017-01-17] MEDS ORDERED: Acetaminophen 325 MG TABLET PO PRN (00:12)
--- NOTE | 2017-01-17 00:12 | Internal Med History&Physical ---
Date of Encounter: 01/17/17 Time of Encounter: 00:08 Assessment and Plan (1) Hypoxia Current visit: Yes Status: Acute acute on chronic hypoxia, now with worsening CHF, difficult situation due to severe , CKD. No good solution as discussed with family. Trial lasix BID, metolazone. May consider further discussion for DNRCC if he does not improve in the next day or so (family agreeable to DNRCCA/DNI tonight) Suspect AMS, intermittent confusion 2/2 hypoxia (2) CKD (chronic kidney disease) Current visit: Yes Status: Acute monitor on diuretics Qualifiers: Chronic kidney disease stage: stage 4 (severe) Qualified Code(s): N18.4 - Chronic kidney disease, stage 4 (severe) (3) Atrial fibrillation Current visit: No Status: Acute on eliquis Qualifiers: Atrial fibrillation type: paroxysmal Qualified Code(s): I48.0 - Paroxysmal atrial fibrillation (4) UTI (urinary tract infection) Current visit: No Status: Acute was started on keflex from last hospitalization Qualifiers: Urinary tract infection type: acute cystitis Hematuria presence: without hematuria Qualified Code(s): N30.00 - Acute cystitis without hematuria (5) Aortic stenosis Current visit: Yes Status: Acute severe. Medical management but no good solutions Qualifiers: Cardiac valve disease etiology: nonrheumatic Qualified Code(s): I35.0 - Nonrheumatic aortic (valve) stenosis Internal Medicine - H&P: HPI Chief complaint: Hypoxia History of present illness: Mr. Villarreal is a 86 year old male which significant medical co-morbidity of , CKD, CHF, HTN, AFib who presents with acute on chronic respiratory failure. Suspect 2/2 to CHF exacerbation. He had been in the hospital and discharged 01/16 to ECF. However, while in the ECF , was found to be in hypoxic failure prompting re-admission. There is also associated confusion intermittent. Patient is mostly sedentary and reports up to 6 days hx of SOB. CXR suggest worsening pulm edema. Discussed code status with family. They wish for him to be DNRCCA/DNI. Family reported that he was evaluated by hospice but was deemed not to qualify? EKG reviewed with rate 68, V-paced rhythm XR/XR chest 1V portable IMPRESSION: Increased opacifications seen in the right upper lobe, which could be related to atelectasis superimposed on cardiomegaly, pleural effusions, and vascular congestion with pulmonary edema. Past Med Surg Social Fam HX - Past Medical History Medical history: non-contributory, atrial fibrillation, hyperlipidemia, myocardial infarction, sudden cardiac Psychiatric history: no psych history - Past Surgical History Surgical History: cataract, pacemaker - Social History Smoking Status: Never smoker Smokeless Tobacco Status: No Alcohol use: none Drug use: none - Family History Mother Adopted: No Family Member Ethnicity: Non- Living Status: Hx Family Cardiac Disorders: No Hx Family Respiratory Disorders: No Hx Family Cancer: Yes Hx Family GI Disorders: Yes (bleeding ulcers, cancer) Hx Family Endocrine Disorder: No Hx Family Neuromuscular Disorders: No Hx Family Neurologic Disorders: No Hx Family HEENT Disorders: No Hx Family Autoimmune Disorders: No Internal Medicine - H&P: Meds Aspirin [Adult Low Dose Aspirin EC] 81 mg PO DAILY 02/25/15 [History] Cholecalciferol (Vitamin D3) [Vitamin D3] 2,000 unit PO DAILY 02/25/15 [History] Finasteride [Proscar] 5 mg PO DAILY 02/25/15 [History] Multivitamin [Multivitamins] 1 each PO DAILY 02/25/15 [History] Simvastatin [Zocor] 20 mg PO HS 02/25/15 [History] Apixaban [Eliquis] 2.5 mg PO BID 01/15/16 [History] Loratadine [Claritin] 10 mg PO BID #30 tablet 05/08/16 [Rx] Latanoprost [Xalatan] 1 drop OP HS 12/21/16 [History] Metoprolol [Lopressor] 25 mg PO BID 12/21/16 [History] Omeprazole [PriLOSEC] 20 mg PO DAILY 12/21/16 [History] Sucralfate [Carafate] 1 gm PO BID 12/21/16 [History] Acetaminophen [Tylenol] 650 mg PO Q6H PRN 01/14/17 [History] Melatonin 5 mg PO HS 01/14/17 [History] Mirtazapine 7.5 mg PO HS 01/14/17 [History] Furosemide [Lasix] 40 mg PO DAILY #30 tab 01/16/17 [Rx] cephALEXin [Keflex] 500 mg PO BID #12 capsule 01/16/17 [Rx] 3 Allergy/AdvReac Type Severity Reaction Status Date / Time No Known Allergies Allergy Verified 01/16/17 21:15 All Systems PM: A 10-system review of systems was performed and is negative for pertinent findings except as documented above in the HPI. Review of systems: ROS 14 point review of systems reviewed as best as possible given presentation. Pertinent positive or negative as per HPI or otherwise reviewed as negative - Constitutional Vitals: Temp Pulse Resp BP Pulse Ox 97.9 F 67 24 140/64 98 01/16/17 21:17 01/17/17 00:06 01/17/17 00:06 01/17/17 00:06 01/17/17 00:06 Exam: General - alert but appears confused Psych - Appropriate affect/speech. No agitation Eyes - TINA. Eye lids intact. No scleral icterus Heart - Sinus. RRR. S1 and S2 present. No added HS/murmurs appreciated. No elevated JVD appreciated. Lung - Adequate air entry b/l, diffuse crackles throughout GI - Soft, non-tender. No hepatosplenomegaly/ascites. BS+ - No CVA/suprapubic tenderness or palpable bladder distension Skin - Intact. No rash/petechiae/ecchymosis. Warm extremities. +2 bilateral lower extremity edema Internal Med - H&P Results - Labs CBC & Chem 7: 01/16/17 22:55 01/16/17 22:55
[2017-01-17] MEDS ORDERED: Naloxone 0.4 MG/ML INJ IVP PRN (00:13)
[2017-01-17 01:22] LABS: Basophils # 0.1 K/mcL (0.0-0.2); Basophils % 0.6 %; Eosinophils # 0.1 K/mcL (0.0-0.6); Eosinophils % 0.6 %; Hematocrit 33.9 % (37.5-50.1); Hemoglobin 10.4 g/dL (12.9-16.9); Immature Granulocytes % 2.2 % (0-4); Lymphocytes # 0.4 K/mcL (0.6-4.6); Lymphocytes % 4.8 %; Mean Corpuscular HGB Conc 30.7 g/dL (31.6-35.5); Mean Corpuscular Hemoglobin 31.4 pg (28.0-33.3); Mean Corpuscular Volume 102.4 fL (83.0-100.0); Mean Platelet Volume 12.4 fL (9.4-12.4); Monocytes # 0.9 K/mcL (0.0-1.3); Monocytes % 10.6 %; Neutrophils # 6.6 K/mcL (1.6-8.9); Platelet Count 176 K/mcL (140-400); Red Blood Count 3.31 M/mcL (4.19-5.50); Red Cell Distribution Width 16.8 % (11.5-14.5); Segmented Neutrophils % 81.2 %
[2017-01-17 01:33] LABS: Calcium 9.7 mg/dL (8.6-10.8)
[2017-01-17] MEDS: Cholecalciferol (D-3) 1,000 UNIT TABLET PO SCH (09:49)
[2017-01-17] MEDS: Aspirin Enteric Coated 81 MG Tablet PO SCH (09:49)
[2017-01-17] MEDS: Furosemide 40 MG/4 ML VIAL IVP SCH ×2 (09:49→18:14)
[2017-01-17] MEDS: Sucralfate 1 GM TABLET PO SCH ×2 (09:49→20:56)
[2017-01-17] MEDS: Finasteride 5 MG TABLET PO SCH (09:49)
[2017-01-17] MEDS: metOLazone 5 MG TABLET PO SCH (09:49)
[2017-01-17] MEDS: Loratadine 10 MG TABLET PO SCH ×2 (09:49→20:56)
[2017-01-17] MEDS: APIXABAN 2.5 MG TABLET PO SCH ×2 (09:49→20:56)
[2017-01-17] MEDS: cephALEXin 500 MG CAPSULE PO SCH ×2 (09:49→20:56)
--- NOTE | 2017-01-17 14:01 | Event Note ---
Date of Encounter: 01/17/17 Time of Encounter: 10:15 Patient was just discharged yesterday to skilled rehabilitation and it was sent back here to the ER last evening with worsening shortness of breath and respiratory failure. Patient was discharged from here on 4 L O2 supplementation. He was apparently hypoxic over there but by the time he came to the ER here, he was saturating in the low 90s on his usual 4 L O2 supplementation. Presently he denies any complaints. He does recognize me and remembers my name. We will continue Lasix IV. Discussed with family and per my last conversation with them yesterday they had expressed interest in hospice [facility] not [facility]. I readdressed this with the family and they are willing to discuss with palliative care and transition patient to hospice as patient wishes to be comfortable. We will consult palliative care. Patient is DNR CC DNI.
[2017-01-17] MEDS: Melatonin 3 MG TABLET PO SCH (20:55)
[2017-01-17] MEDS: Mirtazapine 15 MG TABLET PO SCH (20:57)
[2017-01-17] MEDS: Latanoprost 2.5 ML BOTTLE BOTH EYES SCH (23:18)
[2017-01-18 05:41] LABS: Basophils # 0.1 K/mcL (0.0-0.2); Basophils % 0.6 %; Eosinophils # 0.2 K/mcL (0.0-0.6); Eosinophils % 1.4 %; Hematocrit 29.8 % (37.5-50.1); Hemoglobin 9.5 g/dL (12.9-16.9); Immature Granulocytes % 1.4 % (0-4); Lymphocytes # 0.4 K/mcL (0.6-4.6); Lymphocytes % 3.5 %; Mean Corpuscular HGB Conc 31.9 g/dL (31.6-35.5); Mean Corpuscular Volume 100.3 fL (83.0-100.0); Mean Platelet Volume 12.7 fL (9.4-12.4); Monocytes # 1.3 K/mcL (0.0-1.3); Monocytes % 12.3 %; Neutrophils # 8.5 K/mcL (1.6-8.9); Platelet Count 155 K/mcL (140-400); Red Blood Count 2.97 M/mcL (4.19-5.50); Red Cell Distribution Width 16.6 % (11.5-14.5); Segmented Neutrophils % 80.8 %
[2017-01-18 05:53] LABS: Calcium 9.9 mg/dL (8.6-10.8)
[2017-01-18 05:54] LABS: Potassium 3.6 mEq/L (3.5-4.5)
[2017-01-18] MEDS: Loratadine 10 MG TABLET PO SCH ×2 (10:54→21:43)
[2017-01-18] MEDS: Finasteride 5 MG TABLET PO SCH (10:55)
[2017-01-18] MEDS: Sucralfate 1 GM TABLET PO SCH ×2 (10:55→21:43)
[2017-01-18] MEDS: Aspirin Enteric Coated 81 MG Tablet PO SCH (10:55)
[2017-01-18] MEDS: metOLazone 5 MG TABLET PO SCH (10:55)
[2017-01-18] MEDS: APIXABAN 2.5 MG TABLET PO SCH ×2 (10:55→21:44)
[2017-01-18] MEDS: cephALEXin 500 MG CAPSULE PO SCH ×2 (10:55→21:43)
[2017-01-18] MEDS: Cholecalciferol (D-3) 1,000 UNIT TABLET PO SCH (10:55)
--- NOTE | 2017-01-18 11:41 | Palliative - Consult Note ---
Date of Encounter: 01/18/17 Time of Encounter: 11:30 - Assessment and Plan (1) Dyspnea Current Visit: No Status: Acute Assessment and plan: Continues with IV Furesemide and supportive oxygen. Will begin low dose Roxanol if needed for symptomatic shortness of breath and monitor. Qualifiers: Dyspnea type: unspecified Qualified Code(s): R06.00 - Dyspnea, unspecified (2) Counseling regarding advanced care planning and goals of care Current Visit: No Status: Acute Assessment and plan: Patient advanced directives are done. Daughter at bedside states that hospice deemed him not appropriate for admission. I spoke with Verna, [facility] hospice admission coordinator, who stated that patient had stated he wanted aggressive care. However, at that time, it appeared that there may have been some miscommunication, as he has always refused aggressive intervention for his heart valve in the past. Reviewed his last 2 admission with Verna, and she states that he is appropriate for admission. Unanswered question is where that care will be. He apparently was D/C'd from [facility], and he is most likely not safe enough for assisted living. D/W Paolo CARCAMO who will contact [facility] and see if they can now accomodate pt. (3) Aortic stenosis Current Visit: Yes Status: Acute Qualifiers: Cardiac valve disease etiology: nonrheumatic Qualified Code(s): I35.0 - Nonrheumatic aortic (valve) stenosis (4) CKD (chronic kidney disease) Current Visit: Yes Status: Acute Qualifiers: Chronic kidney disease stage: stage 4 (severe) Qualified Code(s): N18.4 - Chronic kidney disease, stage 4 (severe) Palliative-CN HPI - Data of Consult Requesting Physician: Sally Leger MD Primary Care Provider: Zeyad Costa, - Consult Narrative History of present illness: Mr. Villarreal is a 86 year old male known to the palliative care team from a previous visit, who was admitted when found to be hypoxic at [facility]. He had just been discharged from here the day prior for treatment for UTI. He has history of severe aortic stenosis and declined any intervention through [place]. THis is complicated by his atrial fib and chronic kidney disease. He has been staying at rehab at [facility], and goal was to get him to assisted living apartment, however, daughter Sayda here at bedside, states that it is not feasible at this point r/t increasing weakness. Daughter at bedside states she is not sure why he was transferred back here, other than there was one low oxygen reading. Daughter states that hospice evaluated him at the facility and they were told he was not eligible. Patient is agitated that he is here, and is stating he is leaving today. Upon my visit, he is up in chair. [place]. Alert and oriented x2. Denies any pain or discomfort. States "breathing ok". States he doesn't know why he is here. His daughter Sayda, is primary POA and is at bedside. CC: Sally Leger MD Past Med Surg Social Fam HX - Past Medical History Medical history: non-contributory, atrial fibrillation, hyperlipidemia, myocardial infarction, sudden cardiac Psychiatric history: no psych history - Past Surgical History Surgical History: cataract, pacemaker - Social History Smoking Status: Never smoker Smokeless Tobacco Status: No Alcohol use: none Drug use: none - Family History Mother Adopted: No Family Member Ethnicity: Non- Living Status: Cause of : stomach ulcers Hx Family Cardiac Disorders: Yes Hx Family Respiratory Disorders: No Hx Family Cancer: No Hx Family GI Disorders: No Hx Family Genitourinary Disorders: No Hx Family Endocrine Disorder: No Hx Family Musculoskeletal Disorders: No Hx Family Neuromuscular Disorders: No Hx Family Neurologic Disorders: No Hx Family HEENT Disorders: No Hx Family Autoimmune Disorders: No Hx Family Reproductive Disorders: No Hx Family Psychosocial Disorders: No Hx Family Medical Disorders: No Medications and Allergies Aspirin [Adult Low Dose Aspirin EC] 81 mg PO DAILY 02/25/15 [History] Cholecalciferol (Vitamin D3) [Vitamin D3] 2,000 unit PO DAILY 02/25/15 [History] Finasteride [Proscar] 5 mg PO DAILY 02/25/15 [History] Multivitamin [Multivitamins] 1 cap PO DAILY 02/25/15 [History] Simvastatin [Zocor] 20 mg PO HS 02/25/15 [History] Apixaban [Eliquis] 2.5 mg PO BID 01/15/16 [History] Loratadine [Claritin] 10 mg PO BID #30 tablet 05/08/16 [Rx] Latanoprost [Xalatan] 1 drop OP HS 12/21/16 [History] Metoprolol [Lopressor] 25 mg PO BID 12/21/16 [History] Omeprazole [PriLOSEC] 20 mg PO DAILY 12/21/16 [History] Sucralfate [Carafate] 1 gm PO BID 12/21/16 [History] Acetaminophen [Tylenol] 650 mg PO Q6H PRN 01/14/17 [History] Melatonin 5 - 10 mg PO HS 01/14/17 [History] Mirtazapine 7.5 mg PO HS 01/14/17 [History] Furosemide [Lasix] 40 mg PO DAILY #30 tab 01/16/17 [Rx] cephALEXin [Keflex] 500 mg PO BID #12 capsule 01/16/17 [Rx] 3 Allergy/AdvReac Type Severity Reaction Status Date / Time No Known Allergies Allergy Verified 01/16/17 21:15 ROS unobtainable: due to mental status Palliative Care-Exam - Constitutional Vitals: Temp Pulse Resp BP Pulse Ox 98 F 65 16 128/59 98 01/18/17 07:28 01/18/17 07:28 01/18/17 07:28 01/18/17 07:28 01/18/17 07:28 General appearance: Present: no acute distress - Head Head Exam: Present: normal inspection, normocephalic - Eye Eye exam: Present: normal appearance, PERRL - Respiratory Respiratory exam: Present: decreased breath sounds, CTAB Additional comments: Fine crackles bilateral lower lobes - Cardiovascular Cardiovascular exam: Present: irregular rhythm, systolic murmur - GI/Abdominal Exam GI/Abdominal exam: Present: normal bowel sounds, soft - Extremities Exam Additional comments: 2+ edema bilateral lower extremities - Neurological Exam Neurological exam: Present: alert, strengths equal and symetr throughout - Expanded Neurological Exam Coma Scale Eye Opening: Spontaneous Coma Scale Motor Response: Obeys Commands Coma Scale Verbal Response: Oriented Coma Scale Total: 15 - Skin Skin exam: Present: dry, pallor, warm Internal Medicine - CN: Reslt - Labs CBC & Chem 7: 01/18/17 05:07 01/18/17 05:07 Labs: Short CBC 01/18/17 Range/Units 05:07 WBC 10.5 (4.3-11.1) K/mcL Hgb 9.5 L (12.9-16.9) g/dL Hct 29.8 L (37.5-50.1) % Plt Count 155 (140-400) K/mcL Neutrophils # 8.5 (1.6-8.9) K/mcL BMP 01/18/17 05:07 Sodium 149 H Potassium 3.6 D Chloride 109 Carbon Dioxide 30 H BUN 48 H Creatinine 2.37 H Glucose 86 Calcium 9.9 Consult Discharge Plan - Plan Referrals: Zeyad Costa MD [Primary Care Provider] - Palliative Quality Palliative Quality: Screen for Code Status: Yes, Screen for Goals of Care: Yes, Screen for Pain: Yes, If Pain Regimen Started, Initiate Bowel Regimen: NA, Screen for Nausea/Vomitting: Yes
[2017-01-18] MEDS ORDERED: OxyCODONE CONC 5 MG/0.25 ML ORAL.SYG PO PRN (12:03)
--- NOTE | 2017-01-18 16:08 | Discharge Summary ---
Date of Encounter: 01/18/17 Time of Encounter: 10:00 - Discharge Diagnosis (1) Congestive heart failure Priority: Primary Status: Acute Qualifiers: Congestive heart failure type: combined Congestive heart failure chronicity : acute on chronic Qualified Code(s): I50.43 - Acute on chronic combined systolic (congestive) and diastolic (congestive) heart failure (2) Hypoxia Priority: Secondary Status: Chronic (3) Chronic congestive heart failure Priority: Secondary Status: Chronic Qualifiers: Congestive heart failure type: combined Qualified Code(s): I50.42 - Chronic combined systolic (congestive) and diastolic (congestive) heart failure (4) Aortic stenosis Priority: Secondary Status: Acute Qualifiers: Cardiac valve disease etiology: etiology unspecified Qualified Code(s): I35.0 - Nonrheumatic aortic (valve) stenosis (5) Atrial fibrillation Priority: Secondary Status: Acute Qualifiers: Atrial fibrillation type: paroxysmal Qualified Code(s): I48.0 - Paroxysmal atrial fibrillation (6) Chronic kidney disease Priority: Secondary Status: Acute Qualifiers: Chronic kidney disease stage: stage 3 (moderate) Qualified Code(s): N18.3 - Chronic kidney disease, stage 3 (moderate) (7) Chronic respiratory failure Priority: Secondary Status: Chronic Qualifiers: Respiratory failure complication: hypoxia Qualified Code(s): J96.11 - Chronic respiratory failure with hypoxia (8) UTI (urinary tract infection) Priority: Secondary Status: Acute Qualifiers: Urinary tract infection type: acute cystitis Hematuria presence: without hematuria Qualified Code(s): N30.00 - Acute cystitis without hematuria (9) 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 Continue prophylactic measures and local wound care Qualifiers: Pressure ulcer stage: stage 2 Qualified Code(s): L89.152 - Pressure ulcer of sacral region, stage 2 - Discharge Medications Prescriptions: OxyCODONE CONC 2.5 mg PO Q4H PRN #10 ml PRN Reason: dyspnea Home Medications: Aspirin [Adult Low Dose Aspirin EC] 81 mg PO DAILY 02/25/15 [History] Cholecalciferol (Vitamin D3) [Vitamin D3] 2,000 unit PO DAILY 02/25/15 [History] Finasteride [Proscar] 5 mg PO DAILY 02/25/15 [History] Multivitamin [Multivitamins] 1 cap PO DAILY 10/19/15 [History] Simvastatin [Zocor] 20 mg PO HS 02/25/15 [History] Apixaban [Eliquis] 2.5 mg PO BID 01/15/16 [History] Loratadine [Claritin] 10 mg PO BID #30 tablet 05/08/16 [Rx] Latanoprost [Xalatan] 1 drop OP HS 12/21/16 [History] Metoprolol [Lopressor] 25 mg PO BID 12/21/16 [History] Omeprazole [PriLOSEC] 20 mg PO DAILY 12/21/16 [History] Sucralfate [Carafate] 1 gm PO BID 12/21/16 [History] Acetaminophen [Tylenol] 650 mg PO Q6H PRN 01/14/17 [History] Melatonin 5 - 10 mg PO HS 01/14/17 [History] Mirtazapine 7.5 mg PO HS 01/14/17 [History] Furosemide [Lasix] 40 mg PO DAILY #30 tab 01/16/17 [Rx] OxyCODONE CONC 2.5 mg PO Q4H PRN #10 ml 01/18/17 [Rx] cephALEXin [Keflex] 500 mg PO BID #10 capsule 01/18/17 [Rx] Allergies/Adverse Reactions: 3 Allergy/AdvReac Type Severity Reaction Status Date / Time No Known Allergies Allergy Verified 01/16/17 21:15 Date of admission: 01/17/17 00:13 Primary care physician: Zeyad Costa, Consults: 01/17/17 01:37 Consult to Nutrition [CONS] Routine Comment: Consulting Provider: NUTRITION Reason for Dietary Consult: Diet Education Consult to Pastoral Services [CONS] Routine Comment: Consult to Editor Department [CONS] Routine Reason for SW Consult: ECF patient 01/17/17 12:47 Consult to Palliative Care [CONS] Routine Comment: Consulting Provider: Palliative Care Lacey Reason for Consult: Family wants to discuss hospice Call Completed: No Discharging clinician: Sally Leger Anticipated date of discharge: 01/19/17 - Patient Status Disposition: Hospice - Medical Facility Condition: Fair Functional capacity at discharge: uses cane/walker Overall status at discharge: patient is progressing back to baseline - Discharge Instructions Instructions: Heart Failure (DC) Follow Up With: Zeyad Costa MD [Primary Care Provider] - (In 1-2 weeks) - Diet and Activity Activity: wear oxygen at all times Diet: advance to your usual diet Hospital course: Mr. Villarreal is a 86 year old male patient with a history of chronic combined congestive heart failure, coronary artery disease who has refused prior intervention, severe aortic stenosis was hospitalized here with hypoxia and acute on chronic congestive heart failure. Patient had just been discharged from the hospital following an admission for acute encephalopathy related to acute urinary tract infection. At that time patient was discharged to skilled rehabilitation on 4 L of O2 supplementation which he was on at baseline. According to ED records, patient was found to be hypoxic at the facility with sats of 70% and transferred here for evaluation but by the time the patient came here, he was saturating in the low 90s on his baseline 4 L O2 supplementation and did not appear to be in any significant distress. Chest x- ray did show pulmonary congestion and cardiomegaly. He was placed on treatment for this with intravenous Lasix. Given patient's poor overall prognosis with his history of severe aortic stenosis and other comorbidities, patient and his family wish to speak with palliative care as they were out interested in pursing aggressive care and would not wanted to discuss hospice. Palliative care has come by to speak with the patient and family and have made arrangements for the patient to go to [facility] tomorrow on hospice. Patient will be discharged tomorrow to [facility] on hospice care. He will continue to take oral medications as long as he is able to tolerate them for comfort needs. Patient has expressed his wish to undergo no further procedures or interventions multiple times during both of these hospital stays. He currently remains on 4 L O2 supplementation and is saturating in the high 90s. - Time Spent with Patient Total time spent providing and/or coordinating discharge services: Greater than 30 minutes (40 min) - Constitutional Vitals: Temp Pulse Resp BP Pulse Ox 97.8 F 66 16 115/58 97 01/18/17 15:32 01/18/17 15:32 01/18/17 15:32 01/18/17 15:32 01/18/17 15:32 General appearance: Present: cooperative, A&O X 2, answers questions appropriately - Neck Neck exam general surgery: Present: supple, trachea midline. Absent: lymphadenopathy - Respiratory Respiratory exam: Absent: accessory muscle use, rales, rhonchi, wheezes Additional comments: Basal crackles - Cardiovascular Cardiovascular exam: Present: RRR, +S1, +S2, systolic murmur. Absent: diastolic murmur, gallop, rubs - Extremities Exam Extremities exam: Present: pedal edema, warm, radial pulses palpable and symmetrical. Absent: calf tenderness, cyanotic
--- NOTE | 2017-01-18 17:34 | Electrocardiograph Report ---
[place] [id number] Test Date: 2017-01-16 Pat Name: Merritt Villarreal Department: 105 Room: [facility] Gender: M Staff Attorney: SARA : [id number] Requested By: Ismael Drake Order Number: [id number] Reading MD: Ben Land MD Measurements Intervals [place] Rate: 68 P: NC: 0 QRS: -67 QRSD: 181 T: 104 QT: 463 QTc: 480 Interpretive Statements ELECTRONIC VENTRICULAR PACEMAKER BASELINE ARTIFACT COMPLICATES ACCURATE INTERPRETATION Electronically Signed On 01-18-2017 17:32:32 EDT by Ben Land MD
[2017-01-18] MEDS: Furosemide 40 MG TABLET PO SCH (17:56)
[2017-01-18] MEDS: Mirtazapine 15 MG TABLET PO SCH (21:43)
[2017-01-18] MEDS: Latanoprost 2.5 ML BOTTLE BOTH EYES SCH (21:44)
[2017-01-18] MEDS: Melatonin 3 MG TABLET PO SCH (21:44)
[2017-01-19] MEDS ORDERED: Haloperidol Lactate 5 MG/ML VIAL IVP ONE (02:48)
[2017-01-19 06:59] LABS: Basophils % 0.3 %; Monocytes % 9.8 %
[2017-01-19 07:01] LABS: Basophils # 0.1 K/mcL (0.0-0.2); Hematocrit 32.3 % (37.5-50.1); Hemoglobin 10.1 g/dL (12.9-16.9); Immature Granulocytes % 2.8 % (0-4); Lymphocytes # 0.3 K/mcL (0.6-4.6); Lymphocytes % 0.9 %; Mean Corpuscular HGB Conc 31.3 g/dL (31.6-35.5); Mean Corpuscular Hemoglobin 30.5 pg (28.0-33.3); Mean Corpuscular Volume 97.6 fL (83.0-100.0); Mean Platelet Volume 12.6 fL (9.4-12.4); Monocytes # 2.8 K/mcL (0.0-1.3); Neutrophils # 24.3 K/mcL (1.6-8.9); Nucleated Red Blood Cells 0.1 /100 WBC (0); Platelet Count 181 K/mcL (140-400); Red Blood Count 3.31 M/mcL (4.19-5.50); Red Cell Distribution Width 16.4 % (11.5-14.5); Segmented Neutrophils % 86.2 %
[2017-01-19 07:19] LABS: Platelet Estimate Normal (Normal)
--- NOTE | 2017-01-19 08:50 | Palliative Progress Note ---
Date of Encounter: 01/19/17 Time of Encounter: 08:30 - Assessment and plan (1) Dyspnea Current Visit: No Status: Acute Assessment and plan: Supportive oxygen/diuretics. Has low dose SL Oxycodone if needed. Qualifiers: Dyspnea type: unspecified Qualified Code(s): R06.00 - Dyspnea, unspecified (2) Counseling regarding advanced care planning and goals of care Current Visit: No Status: Acute Assessment and plan: Approved to go to [facility] today with [facility]. Script completed for Oxycodone. Will let Hospice eval and provide other comfort medications. (3) Aortic stenosis Current Visit: Yes Status: Acute Qualifiers: Cardiac valve disease etiology: nonrheumatic Qualified Code(s): I35.0 - Nonrheumatic aortic (valve) stenosis (4) CKD (chronic kidney disease) Current Visit: Yes Status: Acute Qualifiers: Chronic kidney disease stage: stage 4 (severe) Qualified Code(s): N18.4 - Chronic kidney disease, stage 4 (severe) - Time Spent With Patient Total time spent is greater than 50% in coordination of care (as documented) at patient's floor/unit and/or counseling patient: 25 - 35 minutes - Subjective Interval history: Patient eating breakfast. No complaints. Wanting to be discharged today. No family has arrived yet. + BM. Appetite good. - Constitutional Vitals: Abnormal lab results WBC 28.2 K/mcL (4.3-11.1) H D 01/19/17 06:36 RBC 3.31 M/mcL (4.19-5.50) L 01/19/17 06:36 Hgb 10.1 g/dL (12.9-16.9) L 01/19/17 06:36 Hct 32.3 % (37.5-50.1) L 01/19/17 06:36 MCHC 31.3 g/dL (31.6-35.5) L 01/19/17 06:36 RDW 16.4 % (11.5-14.5) H 01/19/17 06:36 MPV 12.6 fL (9.4-12.4) H 01/19/17 06:36 Neutrophils # 24.3 K/mcL (1.6-8.9) H 01/19/17 06:36 Lymphocytes # 0.3 K/mcL (0.6-4.6) L 01/19/17 06:36 Monocytes # 2.8 K/mcL (0.0-1.3) H 01/19/17 06:36 Nucleated RBCs/100 WBC 0.1 /100 WBC (0) H 01/19/17 06:36 Immature Plt Fraction 8.4 % (1.1-6.1) H 01/16/17 22:55 Poikilocytosis 1+ (Not Present) A 01/16/17 22:55 Anisocytosis 1+ (Not Present) A 01/16/17 22:55 Ovalocytes 1+ (Not Present) A 01/16/17 22:55 Schistocytes 1+ (Not Present) A 01/16/17 22:55 Sodium 149 mEq/L (136-145) H 01/19/17 06:36 BUN 59 mg/dL (8-26) H 01/19/17 06:36 Creatinine 2.74 mg/dL (0.72-1.25) H 01/19/17 06:36 Est GFR ( Amer) 27 (> 60) L 01/19/17 06:36 Est GFR (Non-Af Amer) 22 (> 60) L 01/19/17 06:36 Glucose 161 mg/dL (70-99) H 01/19/17 06:36 Calculated Osmolality 328 (280-300) H 01/19/17 06:36 Troponin I 0.16 ng/mL (0-0.03) H* 01/16/17 22:55 B-Natriuretic Peptide > 5000 pg/mL (0-100) H 01/16/17 22:55 General appearance: Present: no acute distress - Respiratory Respiratory exam: Present: decreased breath sounds, CTAB - Cardiovascular Cardiovascular exam: Present: irregular rhythm, systolic murmur - GI/Abdominal GI/Abdominal exam: Present: normal bowel sounds, soft - Extremities Exam Additional comments: 2+ edema bilateral lower extremities - Neurological Exam Neurological exam: Present: alert, oriented X3, strengths equal and symetr throughout - Skin Skin exam: Present: dry, pallor, warm Palliative Quality Palliative Quality: Screen for Code Status: Yes, Screen for Goals of Care: Yes, Screen for Pain: Yes, If Pain Regimen Started, Initiate Bowel Regimen: NA, Screen for Nausea/Vomitting: Yes Code Status: 01/19/17 08:37 DNR [Resuscitation Status: Active] [RES] Routine Comment: Resuscitation Status: DNR-Comfort Care - Labs CBC & Chem 7: 01/19/17 06:36 01/19/17 06:36 Labs: Laboratory Results - last 24 hr 01/19/17 01/19/17 06:36 06:36 WBC 28.2 H D RBC 3.31 L Hgb 10.1 L Hct 32.3 L MCV 97.6 MCH 30.5 MCHC 31.3 L RDW 16.4 H Plt Count 181 MPV 12.6 H Immature Gran % 2.8 Seg Neutrophils % 86.2 Lymphocytes % 0.9 Monocytes % 9.8 Eosinophils % 0.0 Basophils % 0.3 Neutrophils # 24.3 H Lymphocytes # 0.3 L Monocytes # 2.8 H Eosinophils # 0.0 Basophils # 0.1 Nucleated RBCs/100 WBC 0.1 H Platelet Estimate Normal Sodium 149 H Potassium 4.0 Chloride 106 Carbon Dioxide 29 BUN 59 H Creatinine 2.74 H Est GFR ( Amer) 27 L Est GFR (Non-Af Amer) 22 L BUN/Creatinine Ratio 22 Glucose 161 H Calculated Osmolality 328 H Calcium 10.0 Consult Discharge Plan - Plan Instructions: Heart Failure (DC) Referrals: Zeyad Costa MD [Primary Care Provider] - (In 1-2 weeks) Prescriptions: OxyCODONE CONC 2.5 - 5 mg PO Q6HR PRN #30 mls PRN Reason: Dyspnea OxyCODONE CONC 2.5 mg PO Q4H PRN #10 ml PRN Reason: dyspnea
[2017-01-19] MEDS: Finasteride 5 MG TABLET PO SCH (10:48)
[2017-01-19] MEDS: APIXABAN 2.5 MG TABLET PO SCH (10:48)
[2017-01-19] MEDS: Furosemide 40 MG TABLET PO SCH (10:48)
[2017-01-19] MEDS: Aspirin Enteric Coated 81 MG Tablet PO SCH (10:49)
[2017-01-19] MEDS: Sucralfate 1 GM TABLET PO SCH (10:49)
[2017-01-19] MEDS: cephALEXin 500 MG CAPSULE PO SCH (10:49)
[2017-01-19] MEDS: Loratadine 10 MG TABLET PO SCH (10:49)
[2017-01-19] MEDS: Cholecalciferol (D-3) 1,000 UNIT TABLET PO SCH (10:49)
[2017-01-19] MEDS: metOLazone 5 MG TABLET PO SCH (10:51)
[2017-01-19 15:25] VITALS: BP 104/89
[2017-01-19] MEDS ORDERED: *HR* LORazepam 2 MG/ML VIAL IVP ONE (16:12)
--- NOTE | 2017-01-19 16:55 | Physician Discharge Referral ---
ExtendedCare Referral Info Transfer To: Hospice Provider in Charge after Transfer: [employer] - Diagnosis (1) DVT prophylaxis Status: Acute (2) Atrial fibrillation Status: Acute (3) Congestive heart failure Status: Acute (4) CKD (chronic kidney disease) Status: Chronic (5) UTI (urinary tract infection) Status: Acute (6) Neurocognitive disorder Status: Acute (7) Hypoxia Status: Chronic (8) Aortic stenosis Status: Acute (9) Sacral decubitus ulcer Status: Chronic - Transfer Medications Prescriptions: OxyCODONE CONC 2.5 - 5 mg PO Q6HR PRN #30 mls PRN Reason: Dyspnea OxyCODONE CONC 2.5 mg PO Q4H PRN #10 ml PRN Reason: dyspnea Home Medications: Aspirin [Adult Low Dose Aspirin EC] 81 mg PO DAILY 02/25/15 [History] Cholecalciferol (Vitamin D3) [Vitamin D3] 2,000 unit PO DAILY 02/25/15 [History] Finasteride [Proscar] 5 mg PO DAILY 02/25/15 [History] Multivitamin [Multivitamins] 1 cap PO DAILY 02/25/15 [History] Simvastatin [Zocor] 20 mg PO HS 02/25/15 [History] Apixaban [Eliquis] 2.5 mg PO BID 01/15/16 [History] Loratadine [Claritin] 10 mg PO BID #30 tablet 05/08/16 [Rx] Latanoprost [Xalatan] 1 drop OP HS 12/21/16 [History] Metoprolol [Lopressor] 25 mg PO BID 12/21/16 [History] Omeprazole [PriLOSEC] 20 mg PO DAILY 12/21/16 [History] Sucralfate [Carafate] 1 gm PO BID 12/21/16 [History] Acetaminophen [Tylenol] 650 mg PO Q6H PRN 01/14/17 [History] Melatonin 5 - 10 mg PO HS 01/14/17 [History] Mirtazapine 7.5 mg PO HS 01/14/17 [History] Furosemide [Lasix] 40 mg PO DAILY #30 tab 01/16/17 [Rx] OxyCODONE CONC 2.5 mg PO Q4H PRN #10 ml 01/18/17 [Rx] cephALEXin [Keflex] 500 mg PO BID #10 capsule 01/18/17 [Rx] OxyCODONE CONC 2.5 - 5 mg PO Q6HR PRN #30 mls 01/19/17 [Rx] Allergies/Adverse Reactions: 3 Allergy/AdvReac Type Severity Reaction Status Date / Time No Known Allergies Allergy Verified 01/16/17 21:15 - Respiratory Orders Oxygen / L per min (4) Smoking Cessation: Smoking cessation has been advised. For more information, call the [employer] Quit Line at 2-624-RERX-NOW. - Advance Directives Code Status: DNR-Comfort Care - Diet Orders Cardiac CERTIFICATION: I certify that the transfer of the above named patient to an Extended Care Facility is necessary for the continuing treatment of the diagnosis listed. The above information is true and accurate reflection of patient's current condition. Confidential - Redisclosure prohibited without a patient's written consent.
--- NOTE | 2017-01-19 20:56 | Event Note ---
Date of Encounter: 01/19/17 Time of Encounter: 09:00 Patient has been discharged to hospice. Patient was transferred to hospice today. I saw patient in the room, he looks comfortable with oxygen. I confirmed with patient's family, they again expresses wishes for hospice. Leukocytosis noticed from today's lab. Discussed result with patient's family ( patient's daughter and POA, Ms. Sayda Philipp), as the patient is pursuing hospice , no further workup/treatment.
== END 2017-01-19 17:55 | disposition hospice, inpatient (51) | DRG 291 ==
LOC: 2NENU 21:13 → EMEROO 21:13 → 2NENU 01-17 00:09 → SUATTDRO 01-17 00:13 → 2NENU 01-17 00:32
PROVIDERS: ADMIT Hospitalist; ATTEND Internal Medicine